=== PATIENT | female | born 1930 | race Caucasian/White ===

== ENCOUNTER → 2018-12-07 | Outpatient (CLI) | payer MEDICARE | END | disposition home or self-care (01) | LOC: LABWHC1 15:18 | PROVIDERS: ATTEND Orthopaedic Surgery | DX: M25.571 Pain in right ankle and joints of right foot (principal) | CPT/HCPCS: 36415; 82306 ==

== ENCOUNTER 2020-03-25 16:29 | Inpatient (IN) | payer MEDICARE ==
[2020-03-25] MEDS ORDERED: NITROGLYCERIN OINT 1 INCH/GM PACKET TOPICAL STA (17:01)
[2020-03-25] MEDS ORDERED: ASPIRIN 81 MG PO STA (17:01)
[2020-03-25] MEDS ORDERED: SODIUM CHLORIDE 0.9% 500 ML 500 ML IV STA (17:01)
--- NOTE | 2020-03-25 17:03 | ED ---
General Adult HPI - General Chief complaint: Chest Pain Stated complaint: Chest Pain Time Seen by Provider: 03/25/20 16:30 Source: patient, RN notes reviewed, old records reviewed Mode of arrival: wheelchair Limitations: no limitations - History of Present Illness Initial comments: This is an 89-year-old female presents emergency department with past medical history significant for high blood pressure high cholesterol and diabetes. Patient comes in today stating she's had anterior chest pain and associated pain in her teeth. Patient states this is been ongoing for 3 months. Patient states the symptoms are coming on more often and today she did take 2 nitroglycerin to remove the pain. Patient denies any pain currently. Patient denies shortness of breath or difficulty breathing. Patient denies any diaphoretic episode. Patient denies abdominal pain patient denies nausea vomiting diarrhea. Patient denies headache patient denies numbness weakness. Patient denies lightheadedness dizziness or near syncopal episode. Patient denies any recent fever chills or cough. Patient denies any swelling to legs or calf tenderness - Related Data Allergies Allergy/AdvReac Type Severity Reaction Status Date / Time No Known Allergies Allergy Verified 03/25/20 17:00 Review of Systems ROS Statement: Those systems with pertinent positive or pertinent negative responses have been documented in the HPI. ROS Other: All systems not noted in ROS Statement are negative. General Exam - General Exam Comments Initial Comments: GENERAL: Patient is well-developed and well-nourished. Patient is nontoxic and well- hydrated and is in no acute distress. ENT: Neck is soft and supple. No significant lymphadenopathy is noted. Oropharynx is clear. Moist mucous membranes. Neck has full range of motion without eliciting any pain. EYES: The sclera were anicteric and conjunctiva were pink and moist. Extraocular movements were intact and pupils were equal round and reactive to light. Eyelids were unremarkable. PULMONARY: Unlabored respirations. Good breath sounds bilaterally. No audible rales rhonchi or wheezing was noted. CARDIOVASCULAR: There is a regular rate and rhythm without any murmurs gallops or rubs. ABDOMEN: Soft and nontender with normal bowel sounds. SKIN: Skin is clear with no lesions or rashes and otherwise unremarkable. NEUROLOGIC: Patient is alert and oriented x3. Cranial nerves II through XII are grossly intact. Motor and sensory are also intact. Normal speech, volume and content. Symmetrical smile. MUSCULOSKELETAL: Normal extremities with adequate strength and full range of motion. LYMPHATICS: No significant lymphadenopathy is noted PSYCHIATRIC: Normal psychiatric evaluation. Limitations: no limitations Course Vital Signs 03/25/20 03/25/20 16:30 17:45 Temperature 97.9 F Pulse Rate 80 75 Respiratory 18 16 Rate Blood Pressure 117/60 126/60 O2 Sat by Pulse 96 95 Oximetry Medical Decision Making - Medical Decision Making EKG shows normal sinus rhythm at 79 bpm VT interval 192 QRS is 110 QT interval is 438 QTC 502. Patient's EKG shows some ST segment depression in precordial leads V3 through V6. Chest x-ray shows no acute abnormality. Patient's troponin came back mildly elevated and with the subtle EKG changes a store the patient on heparin for unstable angina. I spoke with Dr. Valencia he agreed to admit the patient admitted the patient I wrote admitting orders I continued as per heparin and Nitropaste on the floor. I consult to cardiology. - Lab Data Result diagrams: 03/25/20 17:01 03/25/20 17:01 Lab Results 03/25/20 03/25/20 03/25/20 Range/Units 17:01 17:01 17:01 WBC 9.1 (3.8-10.6) k/uL RBC 3.85 (3.80-5.40) m/uL Hgb 11.3 L (11.4-16.0) gm/dL Hct 35.7 (34.0-46.0) % MCV 92.8 (80.0-100.0) fL MCH 29.3 (25.0-35.0) pg MCHC 31.6 (31.0-37.0) g/dL RDW 14.1 (11.5-15.5) % Plt Count 271 (150-450) k/uL MPV 8.4 Neutrophils % 69 % Lymphocytes % 23 % Monocytes % 4 % Eosinophils % 2 % Basophils % 0 % Neutrophils # 6.3 (1.3-7.7) k/uL Lymphocytes # 2.1 (1.0-4.8) k/uL Monocytes # 0.4 (0-1.0) k/uL Eosinophils # 0.2 (0-0.7) k/uL Basophils # 0.0 (0-0.2) k/uL PT 10.1 (9.0-12.0) sec INR 1.0 (<1.2) APTT 25.8 (22.0-30.0) sec Sodium 140 (137-145) mmol/L Potassium 4.2 (3.5-5.1) mmol/L Chloride 108 H (98-107) mmol/L Carbon Dioxide 20 L (22-30) mmol/L Anion Gap 12 mmol/L BUN 42 H (7-17) mg/dL Creatinine 2.11 H (0.52-1.04) mg/dL Est GFR (CKD-EPI)AfAm 24 (>60 ml/min/1.73 sqM) Est GFR (CKD-EPI)NonAf 20 (>60 ml/min/1.73 sqM) Glucose 163 H (74-99) mg/dL Calcium 9.8 (8.4-10.2) mg/dL Magnesium 1.4 L (1.6-2.3) mg/dL Total Bilirubin 0.9 (0.2-1.3) mg/dL AST 18 (14-36) U/L ALT 11 (4-34) U/L Alkaline Phosphatase 86 (38-126) U/L Troponin I (0.000-0.034) ng/mL Total Protein 6.8 (6.3-8.2) g/dL Albumin 3.9 (3.5-5.0) g/dL 03/25/20 Range/Units 17:01 WBC (3.8-10.6) k/uL RBC (3.80-5.40) m/uL Hgb (11.4-16.0) gm/dL Hct (34.0-46.0) % MCV (80.0-100.0) fL MCH (25.0-35.0) pg MCHC (31.0-37.0) g/dL RDW (11.5-15.5) % Plt Count (150-450) k/uL MPV Neutrophils % % Lymphocytes % % Monocytes % % Eosinophils % % Basophils % % Neutrophils # (1.3-7.7) k/uL Lymphocytes # (1.0-4.8) k/uL Monocytes # (0-1.0) k/uL Eosinophils # (0-0.7) k/uL Basophils # (0-0.2) k/uL PT (9.0-12.0) sec INR (<1.2) APTT (22.0-30.0) sec Sodium (137-145) mmol/L Potassium (3.5-5.1) mmol/L Chloride (98-107) mmol/L Carbon Dioxide (22-30) mmol/L Anion Gap mmol/L BUN (7-17) mg/dL Creatinine (0.52-1.04) mg/dL Est GFR (CKD-EPI)AfAm (>60 ml/min/1.73 sqM) Est GFR (CKD-EPI)NonAf (>60 ml/min/1.73 sqM) Glucose (74-99) mg/dL Calcium (8.4-10.2) mg/dL Magnesium (1.6-2.3) mg/dL Total Bilirubin (0.2-1.3) mg/dL AST (14-36) U/L ALT (4-34) U/L Alkaline Phosphatase (38-126) U/L Troponin I 0.059 H* (0.000-0.034) ng/mL Total Protein (6.3-8.2) g/dL Albumin (3.5-5.0) g/dL Critical Care Time Critical Care Time: Yes Total Critical Care Time: 35 Disposition Clinical Impression: Unstable angina pectoris Disposition: ADMITTED IP TO THIS HOSP Referrals: Ruslan Hayes MD [Primary Care Provider] - 1-2 days Time of Disposition: 18:24
[2020-03-25 17:15] LABS: Basophils % (A) 0 %; Eosinophils # (A) 0.2 k/uL (0-0.7); Eosinophils % (A) 2 %; HCT 35.7 % (34.0-46.0); HGB 11.3 gm/dL (11.4-16.0); Lymphocytes # (A) 2.1 k/uL (1.0-4.8); Lymphocytes % (A) 23 %; MCH 29.3 pg (25.0-35.0); MCHC 31.6 g/dL (31.0-37.0); MCV 92.8 fL (80.0-100.0); Mean Platelet Volume 8.4; Monocytes # (A) 0.4 k/uL (0-1.0); Monocytes % (A) 4 %; Neutrophils # (A) 6.3 k/uL (1.3-7.7); Neutrophils % (A) 69 %; Platelet Count 271 k/uL (150-450); RBC 3.85 m/uL (3.80-5.40); RDW 14.1 % (11.5-15.5); WBC 9.1 k/uL (3.8-10.6)
[2020-03-25 17:24] LABS: Partial Thromboplastin Time 25.8 sec (22.0-30.0); Prothrombin Time 10.1 sec (9.0-12.0)
[2020-03-25 17:26] LABS: Albumin 3.9 g/dL (3.5-5.0); Calcium 9.8 mg/dL (8.4-10.2); Magnesium 1.4 mg/dL (1.6-2.3); Potassium 4.2 mmol/L (3.5-5.1); Total Bilirubin 0.9 mg/dL (0.2-1.3); Total Protein 6.8 g/dL (6.3-8.2)
--- NOTE | 2020-03-25 17:53 | XR ---
EXAMINATION TYPE: XR chest 2V DATE OF EXAM: 03/25/2020 COMPARISON: Prior chest x-ray 03/23/2011, CT 03/24/2011 HISTORY: Chest pain TECHNIQUE: Frontal and lateral views of the chest are obtained. FINDINGS: Abnormal densities present at the right lung base. Patient is rotated, question old right- sided rib fractures. There is blunting the right costophrenic angle. Retrocardiac density is present. There is a wedge compression deformity present near the thoracic lumbar junction, resulting kyphosis is present. Heart size is normal. Aorta is dense. There is no pneumothorax. IMPRESSION: There is a hiatal hernia with partial intrathoracic stomach. Probable basilar atelectasi s, correlate for possible pneumonia, pleural effusion. Rotated exam, additional findings above, compr ession fracture near the thoracic lumbar junction of indeterminate age.
[2020-03-25] MEDS ORDERED: HEPARIN SODIUM,PORCINE 5,000 UNIT/ML 1 ML VIAL IV ONE (18:20)
[2020-03-25] MEDS ORDERED: NITROGLYCERIN SL TABS 0.4 MG TAB SUBLINGUAL PRN ×2 (18:24→20:48)
[2020-03-25] MEDS: HEPARIN SOD,PORK IN 0.45% NACL 25,000 UNIT in 0.45% NACL 1 250ML.BAG IV SCH (18:44)
[2020-03-25] MEDS ORDERED: LORATADINE 10 MG TAB PO PRN (20:48)
--- NOTE | 2020-03-25 21:31 | P.HPIM ---
History of Present Illness H&P Date: 03/25/20 Chief Complaint: Angina, non-ST MA, CAD, hypertension, type 2 diabetes, stage IV chronic kid 89-year-old female one of Dr. Ruslan Hayes's patient with past medical history of chronic kidney disease, hypertension, hyperlipidemia, type 2 diabetes, history of gout, history of TIA in the past with a chronic anemia who was hospitalized at [facility] between 03 03 till 03/08/2001 he for non-ST MA and ended up going for [facility] which showed severe mitral regurgitation and patent bingham ovale patient also was treated for diastolic congestive heart failure with IV diuretics and adjustment of her medication long talk with nephrology about the possibility of intervention including an angiogram because of the stage IV chronic kidney disease decided not to based on the high possibility of patient might ended up on hemodialysis. Medication were adjusted patient was on more Lasix started on atorvastatin hydralazine and isosorbide mononitrate 30 mg a day she felt slightly but better. [place] patient presented to [facility] emergency department this morning with worsening midsternal chest pain radiating toward the teeth and according to her has been having pain on and off for the last 3 months become much worse she is taking 3 nitroglycerin with subsided the pain completely. Finding in the emergency department still GFR of 20 troponin was 0.05 9.063 her EKG showed slight ST depression in V3 to V6 with inverted are and 3 and aVF consistent with previous inferior infarct. Patient chest x-ray shows hiatal hernia with partial intrathoracic stomach probable basilar atele ctasis correlated with possible pneumonia along with pleural effusion. Compression fracture near the thoracic lumbar junction of indeterminate age with no other finding. Patient is known to cardiology from before with the current finding decided to admit patient to the hospital continue heparin drip consult cardiology keep patient nothing by mouth for possible going for heart cath tomorrow. Review of Systems CONSTITUTIONAL: Well-developed no acute respiratory distress. EYES: No icterus sclerae, no conjunctivitis. EARS, NOSE, MOUTH, THROAT, and FACE: No sore throat, lymphadenopathy, carotid bruits or deformity. RESPIRATORY: Positive chest pain with mild shortness of breath or CARDIOVASCULAR: Anginal chest pain worsening with exertion along with mild palpitation and PND. GASTROINTESTINAL: No Abd pain, Nausea or vomiting, no Diarrhea or constipation, No GI Bleed, no distention or masses. GENITOURINARY: Negative for Hematuria or UTI, no kidney stones. INTEGUMENT/BREAST: Negative for any muscular injury with mild osteoarthritis.. HEMATOLOGIC/LYMPHATIC: Negative for bleed or purpura. MUSCULOSKELTAL: Negative for Myalgia or arthralgia. NEURLOGICAL: No LOC, Sz or syncope, blurred vision dizziness or abnormality.. BEHAVIORAL/PSYCH: Negative. ENDOCRINE: Negative. Past Medical History Past Medical History: Coronary Artery Disease (CAD), Chest Pain / Angina, Heart Failure, CVA/TIA, Diabetes Mellitus, GERD/Reflux, Hyperlipidemia, Hypertension, Memory Impairment, Musculoskeletal Disorder, Renal Disease, Supraventricular Tachycardia (SVT), Thyroid Disorder Additional Past Medical History / Comment(s): Severe mitral regurgitation and patent bingham ovale. Generalized anxiety attacks, chronic constipation, vasomotor rhinitis, migraine with visual aura, iron deficiency anemia, B12 deficiency, chronic vertigo, lumbar degenerative disc disease, osteoporosis with pathology fracture, history of non-ST MA, cystitis with hematuria, chronic edema Past Surgical History: Cholecystectomy, Hysterectomy, Tonsillectomy Past Psychological History: Anxiety, Depression Smoking Status: Never smoker Past Alcohol Use History: None Reported Past Drug Use History: None Reported Medications and Allergies Home Medications Medication Instructions Recorded Confirmed Type ALPRAZolam [Xanax] 0.25 mg PO BID PRN 03/25/20 03/25/20 History Atenolol [Tenormin] 50 mg PO HS 03/25/20 03/25/20 History Atorvastatin [Lipitor] 40 mg PO HS 03/25/20 03/25/20 History Dipyridamole-Aspirin 200-25 mg 1 tab PO DAILY 03/25/20 03/25/20 History [Aggrenox 25MG -200MG] Furosemide [Lasix] 40 mg PO DAILY 03/25/20 03/25/20 History Insulin Glargine,Hum.rec.anlog 25 units SQ HS 03/25/20 03/25/20 History [Lantus Solostar] Isosorbide Mononitrate ER [Imdur] 60 mg PO DAILY 03/25/20 03/25/20 History Lansoprazole [Prevacid] 15 mg PO DAILY 03/25/20 03/25/20 History Loratadine [Claritin] 10 mg PO DAILY PRN 03/25/20 03/25/20 History Nitroglycerin Sl Tabs [Nitrostat] 0.4 mg SUBLINGUAL DIRECTED PRN 03/25/20 03/25/20 History amLODIPine [Norvasc] 10 mg PO HS 03/25/20 03/25/20 History hydrALAZINE HCL [Apresoline] 50 mg PO BID 03/25/20 03/25/20 History Allergies Allergy/AdvReac Type Severity Reaction Status Date / Time No Known Allergies Allergy Verified 03/25/20 19:23 Physical Exam Vitals: Vital Signs Temp Pulse Resp BP Pulse Ox 03/25/20 20:21 97.9 F 80 14 114/61 94 L 03/25/20 18:50 75 16 124/63 96 03/25/20 17:45 75 16 126/60 95 03/25/20 16:30 97.9 F 80 18 117/60 96 Intake and Output 03/25/20 03/25/20 03/25/20 06:59 14:59 22:59 Other: Weight 86.183 kg General Appearance: Alert, cooperative, no distress, appears stated age. Neck HEENT: Supple, no lymphadenopathy, no thyroid enlargement, no carotid bruits. Lungs: Clear to auscultation without crackles or wheezes no rhonchi, no deformity. Chest Wall: Decrease expansion with deep inspiration no tenderness and no deformity was found on exam, no costochondral pain or discomfort. Heart: Regular rate and rhythm, S1, S2 , positive systolic murmur Back: Symmetric, no curvature, ROM normal, no CVA tenderness. Abdomen: Soft, non-tender, bowel sounds active all four quadrants, no masses, no organomegaly. Extremities: Extremities normal, atraumatic, no cyanosis or edema. Pulses: 2+ and symmetric. Skin: Skin color, texture, tugor normal, no rashes or lesions. Neurologic: Alert oriented x3 cranial nerves II through XII intact, no motor deficit, no abnormal balance or gait. Results CBC & Chem 7: 03/25/20 17:01 03/25/20 17:01 Labs: Abnormal Lab Results - Last 24 Hours (Table) 03/25/20 03/25/20 03/25/20 Range/Units 17:01 17:01 17:01 Hgb 11.3 L (11.4-16.0) gm/dL Chloride 108 H (98-107) mmol/L Carbon Dioxide 20 L (22-30) mmol/L BUN 42 H (7-17) mg/dL Creatinine 2.11 H (0.52-1.04) mg/dL Glucose 163 H (74-99) mg/dL Magnesium 1.4 L (1.6-2.3) mg/dL Troponin I 0.059 H* (0.000-0.034) ng/mL 03/25/20 Range/Units 19:11 Hgb (11.4-16.0) gm/dL Chloride (98-107) mmol/L Carbon Dioxide (22-30) mmol/L BUN (7-17) mg/dL Creatinine (0.52-1.04) mg/dL Glucose (74-99) mg/dL Magnesium (1.6-2.3) mg/dL Troponin I 0.063 H* (0.000-0.034) ng/mL Assessment and Plan Assessment: 1 unstable angina: With recurrent chest pain for the last few month patient tramaine tam not doing well will admit patient to the hospital consult cardiology possible need for heart cath the meanwhile continue heparin drip. 2 non-ST MA: Patient was seen at [facility] and no intervention was done based on the severity of her kidney function. 3 stage IV chronic kidney disease: Still with GFR of 20 continue hydration and reexamined the factor being testing by tomorrow. 4 severe large hiatal hernia: Patient can benefit from stain on pantoprazole 40 mg daily for now. 5 hyperlipidemia: Was started on atorvastatin 40 mg daily. 6 type 2 diabetes on insulin: Continue patient on Levemir 25 units daily along with Accu-Chek with sliding scales coverage. 7 hypertension: Blood pressure is better controlled so far on Tenormin 50 mg a day amlodipine 10 mg daily hydralazine 50 mg twice a day continue medication and titrate hydralazine if needed. 8 previous history of TIA still on Aggrenox continue on anticoagulation. GI prophylaxis: On pantoprazole. DVT prophylaxis: Continue patient on heparin drip. CODE STATUS: Full code. Admit patient to the inpatient service for more than 2 night stay.
[2020-03-25] MEDS: INSULIN DETEMIR (LEVEMIR) 100 UNIT/ML SYR SQ SCH (22:17)
[2020-03-25] MEDS: hydrALAZINE HCL 50 MG TAB PO SCH (22:18)
[2020-03-25] MEDS: ATORVASTATIN 40 MG TAB PO SCH (22:18)
[2020-03-25] MEDS: amLODIPine 10 MG TAB PO SCH (22:18)
[2020-03-25] MEDS: atenoloL 50 MG TAB PO SCH (22:18)
[2020-03-25 22:20] LABS: Glucose,Whole Blood 129 mg/dL (75-99)
[2020-03-25] MEDS: ALPRAZolam 0.25 MG TAB PO PRN (22:32)
[2020-03-26] MEDS: NITROGLYCERIN OINT 1 INCH/GM PACKET TOPICAL SCH ×4 (00:49→18:06)
[2020-03-26 03:27] LABS: Basophils % (A) 0 %; Eosinophils % (A) 3 %; HCT 29.3 % (34.0-46.0); Lymphocytes % (A) 30 %; MCH 30.9 pg (25.0-35.0); MCHC 33.3 g/dL (31.0-37.0); MCV 92.8 fL (80.0-100.0); Mean Platelet Volume 8.2; Monocytes % (A) 5 %; Neutrophils % (A) 60 %; Platelet Count 248 k/uL (150-450); RBC 3.16 m/uL (3.80-5.40); RDW 13.8 % (11.5-15.5); WBC 7.9 k/uL (3.8-10.6)
[2020-03-26 03:28] LABS: Eosinophils # (A) 0.2 k/uL (0-0.7); Lymphocytes # (A) 2.4 k/uL (1.0-4.8); Monocytes # (A) 0.4 k/uL (0-1.0); Neutrophils # (A) 4.7 k/uL (1.3-7.7)
[2020-03-26 03:30] LABS: HGB 9.8 gm/dL (11.4-16.0)
[2020-03-26 04:29] LABS: Calcium 9.1 mg/dL (8.4-10.2); Potassium 3.8 mmol/L (3.5-5.1); Total Bilirubin 0.7 mg/dL (0.2-1.3); Total Protein 5.7 g/dL (6.3-8.2)
[2020-03-26] MEDS: PANTOPRAZOLE 40 MG TABLET PO SCH (05:34)
--- NOTE | 2020-03-26 10:32 | P.NPCON ---
History of Present Illness - Reason for Consult acute renal failure - History of Present Illness Reason for consultation: Acute kidney injury on chronic kidney disease History of present illness: Patient is a 89-year-old female seen in renal consultation for acute kidney injury on chronic kidney disease. Creatinine was 2.11 on admission and is 1.96 today. Unknown baseline renal function. She does not follow with a welfare officer outpatient. Patient states she's been having intermittent chest discomfort for almost 2 months. However the last few days she's been having progressively worsening shortness of breath. She denies any prior history of coronary artery disease. She does have history of diabetes. Patient describes the pain as pressure-like in the midsternum. Denies any diaphoresis or pain in her arms. Oral intake has been fair. No vomiting or diarrhea. Good urine output. No hematuria or dysuria. Denies family history of renal disease. Blood pressure was on the lower side this morning. Currently maintained on heparin drip. She has been seen by cardiology and cardiac catheterization is being considered this admission. Vital signs are stable. General: The patient appeared well nourished and normally developed. HEENT: Head exam is unremarkable. Neck is without jugular venous distension. LUNGS: Breath sounds decreased. HEART: Rate and Rhythm are regular. ABDOMEN: Soft, nontender. EXTREMITITES: Trace edema. Past Medical History Past Medical History: Coronary Artery Disease (CAD), Chest Pain / Angina, Heart Failure, CVA/TIA, Diabetes Mellitus, GERD/Reflux, Hyperlipidemia, Hypertension, Memory Impairment, Musculoskeletal Disorder, Renal Disease, Supraventricular Tachycardia (SVT), Thyroid Disorder Additional Past Medical History / Comment(s): Severe mitral regurgitation and patent bingham ovale. Generalized anxiety attacks, chronic constipation, vasomotor rhinitis, migraine with visual aura, iron deficiency anemia, B12 deficiency, chronic vertigo, lumbar degenerative disc disease, osteoporosis with pathology fracture, history of non-ST [place], cystitis with hematuria, chronic edema History of Any Multi-Drug Resistant Organisms: None Reported Past Surgical History: Cholecystectomy, Hysterectomy, Tonsillectomy Past Psychological History: Anxiety, Depression Smoking Status: Never smoker Past Alcohol Use History: None Reported Past Drug Use History: None Reported Medications and Allergies Home Medications Medication Instructions Recorded Confirmed Type ALPRAZolam [Xanax] 0.25 mg PO BID PRN 03/25/20 03/25/20 History Atenolol [Tenormin] 50 mg PO HS 03/25/20 03/25/20 History Atorvastatin [Lipitor] 40 mg PO HS 03/25/20 03/25/20 History Dipyridamole-Aspirin 200-25 mg 1 tab PO DAILY 03/25/20 03/25/20 History [Aggrenox 25MG -200MG] Furosemide [Lasix] 40 mg PO DAILY 03/25/20 03/25/20 History Insulin Glargine,Hum.rec.anlog 25 units SQ HS 03/25/20 03/25/20 History [Lantus Solostar] Isosorbide Mononitrate ER [Imdur] 60 mg PO DAILY 03/25/20 03/25/20 History Lansoprazole [Prevacid] 15 mg PO DAILY 03/25/20 03/25/20 History Loratadine [Claritin] 10 mg PO DAILY PRN 03/25/20 03/25/20 History Nitroglycerin Sl Tabs [Nitrostat] 0.4 mg SUBLINGUAL DIRECTED PRN 03/25/20 03/25/20 History amLODIPine [Norvasc] 10 mg PO HS 03/25/20 03/25/20 History hydrALAZINE HCL [Apresoline] 50 mg PO BID 03/25/20 03/25/20 History Allergies Allergy/AdvReac Type Severity Reaction Status Date / Time No Known Allergies Allergy Verified 03/25/20 19:23 Physical Exam Vitals: Vital Signs Temp Pulse Pulse Resp BP BP Pulse Ox 03/26/20 04:43 98.1 F 69 16 87/54 94 L 03/26/20 02:00 18 03/26/20 00:15 98.1 F 75 18 104/54 94 L 03/25/20 22:19 98.2 F 75 16 122/62 97 03/25/20 21:15 78 16 105/60 94 L 03/25/20 20:55 112/60 92 L 03/25/20 20:21 97.9 F 80 14 114/61 94 L 03/25/20 18:50 75 16 124/63 96 03/25/20 17:45 75 16 126/60 95 03/25/20 16:30 97.9 F 80 18 117/60 96 Intake and Output 03/25/20 03/26/20 03/26/20 22:59 06:59 14:59 Intake Total 540 Balance 540 Intake: Oral 540 Other: Voiding Method Toilet # Voids 2 Weight 86.183 kg 86.183 kg Results - Lab Results Most recent lab results Calcium 9.1 mg/dL (8.4-10.2) 03/26/20 02:34 Magnesium 1.4 mg/dL (1.6-2.3) L 03/25/20 17:01 03/26/20 02:29 03/26/20 02:34 Assessment and Plan Plan: Assessment: 1. Acute kidney injury secondary to ATN secondary to hypotension versus chronic kidney disease. Unknown baseline renal function. Renal function fairly stable this admission. Creatinine 1.96 this morning. 2. Chronic kidney disease. Need to establish baseline renal function. 3. Non-ST elevated myocardial infarction. Currently on heparin drip. 4. Insulin-dependent diabetes mellitus. 5. Hypertension with chronic kidney disease. Blood pressure in the lower side. 6. Metabolic acidosis secondary to chronic kidney disease. 7. Anemia of chronic kidney disease. Rule out iron deficiency. Plan: Hold antihypertensives for systolic blood pressure less than 110. Maintain Lasix 40 mg orally daily for now. I discussed with the patient the risk of worsening renal failure, potentially requiring renal replacement therapy, post IV contrast exposure. She understands. I will hydrate her with isotonic bicarbonate drip to be given at a rate of 3 mL/kg per hour one hour prior to the catheterization and to be continued at a rate of 1 mL/kilogram per hour 6 hours post cardiac catheterization. Continue to monitor renal function and urine output closely. Check urinalysis. Check renal ultrasound. Add oral sodium bicarbonate. Check iron studies. Thank you for the consultation. I will continue to follow the patient with you during her hospital stay.
[2020-03-26] MEDS: SODIUM BICARBONATE TAB 650 MG TAB PO SCH ×2 (11:00→20:56)
[2020-03-26] MEDS: DIPYRIDAMOLE-ASPIRIN 200-25 MG 1 EACH CPMP.12HR PO SCH (11:00)
[2020-03-26] MEDS ORDERED: DEXTROSE 5% IN WATER 1,000 ML with SODIUM BICARB (1 MEQ/ML) 150 ML IV SCH (11:00)
[2020-03-26] MEDS: FUROSEMIDE 40 MG TAB PO SCH (11:01)
[2020-03-26] MEDS: hydrALAZINE HCL 50 MG TAB PO SCH ×2 (11:01→20:57)
[2020-03-26] MEDS: ASPIRIN 325 MG TAB PO SCH (11:01)
--- NOTE | 2020-03-26 11:12 | US ---
EXAMINATION TYPE: US kidneys/renal and bladder DATE OF EXAM: 03/26/2020 COMPARISON: CT 03/24/2011 CLINICAL HISTORY: [email or web address]. EXAM MEASUREMENTS: Right Kidney: 10.1 x 5.1 x 4.9 cm Left Kidney: 9.3 x 4.0 x 4.7 cm Right Kidney: No hydronephrosis. Loss of corticomedullary differentiation. Hypoechoic nodule visualiz ed measuring 0.8 cm Left Kidney: No hydronephrosis. Loss of corticomedullary differentiation. Hypoechoic nodule visualize d measuring 1.3 x 1.5 x 0.9 cm Bladder: Not fully distended, WNL as visualized Bilateral Jets seen: No IMPRESSION: 1. Cortical thinning and increased echogenicity correlate for chronic medical renal disease. 2. Hypoechoic nodules in both kidneys are indeterminate but most likely on the basis of simple cysts.
[2020-03-26] MEDS: ALPRAZolam 0.25 MG TAB PO PRN ×2 (12:59→20:56)
--- NOTE | 2020-03-26 14:02 | P.PN ---
Subjective Progress Note Date: 03/26/20 HISTORY OF PRESENT ILLNESS 89-year-old female one of Dr. Ruslan Hayes's patient with past medical history of chronic kidney disease, hypertension, hyperlipidemia, type 2 diabetes , history of gout, history of TIA in the past with a chronic anemia who was hospitalized at [facility] between 03/03 till 03/08/2001 he for non-ST [place] and ended up going for NICOLAS which showed severe mitral regurgitation and patent bingham ovale patient also was treated for diastolic congestive heart failure with IV diuretics and adjustment of her medication long talk with nephrology about the possibility of intervention including an angiogram because of the stage IV chronic kidney disease decided not to based on the high possibility of patient might ended up on hemodialysis. Medication were adjusted patient was on more Lasix started on atorvastatin hydralazine and isosorbide mononitrate 30 mg a day she felt slightly but better. [place] patient presented to [facility] emergency department this morning with worsening midsternal chest pain radiating toward the teeth and according to her has been having pain on and off for the last 3 months become much worse she is taking 3 nitroglycerin with subsided the pain completely. Finding in the emergency department still GFR of 20 troponin was 0.05 9.063 her EKG showed slight ST depression in V3 to V6 with inverted are and 3 and aVF consistent with previous inferior infarct. Patient chest x-ray shows hiatal hernia with partial intrathoracic stomach probable basilar atelectasis correlated with possible pneumonia along with pleural effusion. C ompression fracture near the thoracic lumbar junction of indeterminate age with no other finding. Patient is known to cardiology from before with the current finding decided to admit patient to the hospital continue heparin drip consult cardiology keep patient nothing by mouth for possible going for heart cath tomorrow. 03/26: Patient is seen today in the emergency center and is still waiting for room and the cardiac floor. She has been seen by cardiology with plan for heart catheterization tomorrow. Consult added for nephrology and Dr. Aggarwal has recommended maintaining Lasix 40 mg daily, start a bicarb drip prior to her catheterization. Oral sodium bicarbonate added and iron studies ordered. Renal ultrasound revealed cortical thinning and increased echogenicity correlate for chronic medical renal disease. Hypoechoic nodules in both kidneys are indeterminate but most likely on the basis of simple cyst.Patient has been afebrile, heart rate 69, blood pressure 87/54, pulse ox 94% on 2 L nasal cannula. Repeat blood work reveals hemoglobin of 9.8. CO2 19, BUN 42 and creatinine 1.96. Troponins are 0.059, 0.063, 0.060. REVIEW OF SYSTEMS CONSTITUTIONAL: Well-developed no acute respiratory distress. Denies fevers EYES: No icterus sclerae, no conjunctivitis. EARS, NOSE, MOUTH, THROAT, and FACE: No sore throat, lymphadenopathy, carotid bruits or deformity. RESPIRATORY: Positive chest pain with mild shortness of breath CARDIOVASCULAR: Anginal chest pain worsening with exertion along with mild palpitation and PND. GASTROINTESTINAL: No Abd pain, Nausea or vomiting, no Diarrhea or constipation, No GI Bleed, no distention or masses. GENITOURINARY: Negative for Hematuria or UTI, no kidney stones. INTEGUMENT/BREAST: Negative for any muscular injury with mild osteoarthritis.. HEMATOLOGIC/LYMPHATIC: Negative for bleed or purpura. MUSCULOSKELTAL: Negative for Myalgia or arthralgia. NEURLOGICAL: No LOC, Sz or syncope, blurred vision dizziness or abnormality.. BEHAVIORAL/PSYCH: Negative. ENDOCRINE: Negative. PHYSICAL EXAMINATION General Appearance: Alert, cooperative, no distress, appears stated age. Neck HEENT: Supple, no lymphadenopathy, no thyroid enlargement, no carotid bruits. Lungs: Clear to auscultation without crackles or wheezes no rhonchi, no deformity. Chest Wall: Decrease expansion with deep inspiration no tenderness and no deformity was found on exam, no costochondral pain or discomfort. Heart: Regular rate and rhythm, S1, S2 , positive systolic murmur Back: Symmetric, no curvature, ROM normal, no CVA tenderness. Abdomen: Soft, non-tender, bowel sounds active all four quadrants, no masses, no organomegaly. Extremities: Extremities normal, atraumatic, no cyanosis or edema. Pulses: 2+ and symmetric. Skin: Skin color, texture, tugor normal, no rashes or lesions. Neurologic: Alert oriented x3 cranial nerves II through XII intact, no motor deficit, no abnormal balance or gait. ASSESSMENT AND PLAN 1 unstable angina: With recurrent chest pain for the last few month. Patient is on heparin drip, cardiology consult appreciated. Heart catheterization scheduled for tomorrow. 2 non-ST [place]: Patient was seen at [facility] and no intervention was done based on the severity of her kidney function. 3 stage IV chronic kidney disease: Still with GFR of 20 continue hydration and reexamined the factor being testing by tomorrow.Consult with nephrology appreciated. Patient started on oral bicarb, bicarb drip. Renal ultrasound as above 4 severe large hiatal hernia: Patient can benefit from stain on pantoprazole 40 mg daily for now. 5 hyperlipidemia: Was started on atorvastatin 40 mg daily. 6 type 2 diabetes on insulin: Continue patient on Levemir 25 units daily along with Accu-Chek with sliding scales coverage. 7 hypertension: Blood pressure is better controlled so far on Tenormin 50 mg a day amlodipine 10 mg daily hydralazine 50 mg twice a day continue medication and titrate hydralazine if needed. 8 previous history of TIA still on Aggrenox continue on anticoagulation. 9 patent foramen ovale and severe mitral regurgitation 10 GI prophylaxis: On pantoprazole. DVT prophylaxis: Continue patient on heparin drip. CODE STATUS: Full code. DISCHARGE PLAN [ ]. Impression and plan of care have been directed as dictated by the signing physician. [place] Mayo nurse practitioner acting as scribe for signing physician. Objective - Vital Signs Vital signs: Vital Signs Temp 98.1 F 03/26/20 04:43 Pulse 69 03/26/20 04:43 Resp 16 03/26/20 04:43 BP 87/54 03/26/20 04:43 Pulse Ox 94 L 03/26/20 04:43 Intake & Output 03/25/20 03/26/20 03/26/20 18:59 06:59 18:59 Intake Total 540 Balance 540 Weight 86.183 kg 86.183 kg Intake: Oral 540 Other: Voiding Method Toilet # Voids 2 - Labs CBC & Chem 7: 03/26/20 02:29 03/26/20 02:34 Labs: Abnormal Lab Results - Last 24 Hours (Table) 03/25/20 03/25/20 03/25/20 Range/Units 17:01 17:01 17:01 RBC (3.80-5.40) m/uL Hgb 11.3 L (11.4-16.0) gm/dL Hct (34.0-46.0) % APTT (22.0-30.0) sec Chloride 108 H (98-107) mmol/L Carbon Dioxide 20 L (22-30) mmol/L BUN 42 H (7-17) mg/dL Creatinine 2.11 H (0.52-1.04) mg/dL Glucose 163 H (74-99) mg/dL POC Glucose (mg/dL) (75-99) mg/dL Magnesium 1.4 L (1.6-2.3) mg/dL Troponin I 0.059 H* (0.000-0.034) ng/mL Total Protein (6.3-8.2) g/dL Albumin (3.5-5.0) g/dL HDL Cholesterol (40-60) mg/dL 03/25/20 03/25/20 03/25/20 Range/Units 19:11 21:10 22:17 RBC (3.80-5.40) m/uL Hgb (11.4-16.0) gm/dL Hct (34.0-46.0) % APTT (22.0-30.0) sec Chloride (98-107) mmol/L Carbon Dioxide (22-30) mmol/L BUN (7-17) mg/dL Creatinine (0.52-1.04) mg/dL Glucose (74-99) mg/dL POC Glucose (mg/dL) 129 H (75-99) mg/dL Magnesium (1.6-2.3) mg/dL Troponin I 0.063 H* 0.060 H* (0.000-0.034) ng/mL Total Protein (6.3-8.2) g/dL Albumin (3.5-5.0) g/dL HDL Cholesterol (40-60) mg/dL 03/26/20 03/26/20 03/26/20 Range/Units 02:29 02:29 02:34 RBC 3.16 L (3.80-5.40) m/uL Hgb 9.8 L D (11.4-16.0) gm/dL Hct 29.3 L (34.0-46.0) % APTT 81.6 H (22.0-30.0) sec Chloride 112 H (98-107) mmol/L Carbon Dioxide 19 L (22-30) mmol/L BUN 42 H (7-17) mg/dL Creatinine 1.96 H (0.52-1.04) mg/dL Glucose 115 H (74-99) mg/dL POC Glucose (mg/dL) (75-99) mg/dL Magnesium (1.6-2.3) mg/dL Troponin I (0.000-0.034) ng/mL Total Protein 5.7 L (6.3-8.2) g/dL Albumin 3.0 L (3.5-5.0) g/dL HDL Cholesterol 39 L (40-60) mg/dL
--- NOTE | 2020-03-26 14:18 | P.CRDCN ---
History of Present Illness History of present illness: HISTORY OF PRESENTING ILLNESS This is a pleasant 89-year-old female past medical history significant for diabetes mellitus, hypertension, dyslipidemia and chronic kidney disease. She does not follow in the office with a weaver dobby loom regularly. However, the son states she saw Dr. Manzanares in the office after that admission and was giving her options regarding medical therapy vs catheterization. They had a follow-up scheduled for later this week for a decision. The son states that her breathing has been progressively getting worse and believes she would benefit from further testing. We have been asked to see in consultation for chest pain. She presented to the hospital with one to 2 month history of exertional shortness of breath and chest discomfort. She was seen in evaluation at [facility] earlier in February where maximum medical therapy was rec ommended secondary to kidney disease. She also underwent a NICOLAS at that time revealing severe mitral regurgitation, mitral regurgitation is eccentrically directed with flow reversal noted in the pulmonary veins, mild tricuspid regurgitation, PFO and normal LV systolic function with ejection fraction 55- 60%. DIAGNOSTICS EKG reveals sinus mechanism, ST depression inferior laterally, no old EKG for c omparison. Chest xray hiatal hernia and basilar atelectasis. Laboratory reviewed, WBC 7.9, hemoglobin 9.8, platelets 248, sodium 140, potassium 3.8, creatinine 1.96, magnesium 1.4, LDL 40, HDL 39, troponin 0.059, 0.063 and 0.060. Current cardiac medications include amlodipine 10 mg daily, atenolol 50 mg daily, atorvastatin 40 mg daily, Lasix 40 mg daily, Imdur 60 mg daily and hydralazine 50 mg twice a day. REVIEW OF SYSTEMS At the time of my exam: CONSTITUTIONAL: Denies fever or chills. CARDIOVASCULAR: Complains of exertional shortness of breath. Denies chest pain, orthopnea, PND or palpitations. RESPIRATORY: Denies cough. GASTROINTESTINAL: Denies abdominal pain, diarrhea, constipation, nausea or vomiting. MUSCULOSKELETAL: Denies myalgias. NEUROLOGIC: Denies numbness, tingling or weakness. ENDOCRINE: Denies fatigue, weight change, polydipsia or polyurina. GENITOURINARY: Denies burning, hematuria or urgency with micturation. HEMATOLOGIC: Denies history of anemia or bleeding. PHYSICAL EXAMINATION Blood pressure 87/54 heart rate 69 afebrile and maintaining oxygen saturation on nasal cannula. CONSTITUTIONAL: No apparent distress. HEENT: Head is normocephalic. Pupils are equal, round. Sclerae anicteric. Mucous membranes of the mouth are moist. No JVD. No carotid bruit. CHEST EXAMINATION: Lungs are clear to auscultation. No chest wall tenderness is noted on palpation or with deep breathing. HEART EXAMINATION: Regular rate and rhythm. S1, S2 heard. Systolic ejection murmur at the apex, no gallops or rub. ABDOMEN: Soft, nontender. Positive bowel sounds. EXTREMITIES: 2+ peripheral pulses, no lower extremity edema and no calf tenderness. NEUROLOGIC EXAMINATION: Patient is awake, alert and oriented x3. ASSESSMENT Unstable angina Elevated troponin, flat and not consistent with ACS Acute on chronic kidney disease Diabetes mellitus Hypertension Dyslipidemia PLAN Appreciate nephrology opinion prior to undergoing cardiac catheterization. I have discussed the risks, benefits and alternative therapies for the above- mentioned procedure and for both sedation/analgesia as well as necessary blood product administration, if indicated, as they pertain to this patient. The patient has indicated understanding and acceptance of the risks and procedures discussed. Questions have been answered properly and she is agreeable to move forward with the above stated procedure. Her son is also been updated as to the plan of care per the nurse. We will proceed with cardiac catheterization tomorrow morning. Further recommendations to follow based upon clinical course. Thank you kindly for this consultation. Nurse Practitioner note has been reviewed, I agree with a documented findings and plan of care. Patient was seen and examined. Past Medical History Past Medical History: Coronary Artery Disease (CAD), Chest Pain / Angina, Heart Failure, CVA/TIA, Diabetes Mellitus, GERD/Reflux, Hyperlipidemia, Hypertension, Memory Impairment, Musculoskeletal Disorder, Renal Disease, Supraventricular Tachycardia (SVT), Thyroid Disorder Additional Past Medical History / Comment(s): Severe mitral regurgitation and patent bingham ovale. Generalized anxiety attacks, chronic constipation, vasomotor rhinitis, migraine with visual aura, iron deficiency anemia, B12 deficiency, chronic vertigo, lumbar degenerative disc disease, osteoporosis with pathology fracture, history of non-ST [place], cystitis with hematuria, chronic edema History of Any Multi-Drug Resistant Organisms: None Reported Past Surgical History: Cholecystectomy, Hysterectomy, Tonsillectomy Past Psychological History: Anxiety, Depression Smoking Status: Never smoker Past Alcohol Use History: None Reported Past Drug Use History: None Reported Medications and Allergies Home Medications Medication Instructions Recorded Confirmed Type ALPRAZolam [Xanax] 0.25 mg PO BID PRN 03/25/20 03/25/20 History Atenolol [Tenormin] 50 mg PO HS 03/25/20 03/25/20 History Atorvastatin [Lipitor] 40 mg PO HS 03/25/20 03/25/20 History Dipyridamole-Aspirin 200-25 mg 1 tab PO DAILY 03/25/20 03/25/20 History [Aggrenox 25MG -200MG] Furosemide [Lasix] 40 mg PO DAILY 03/25/20 03/25/20 History Insulin Glargine,Hum.rec.anlog 25 units SQ HS 03/25/20 03/25/20 History [Lantus Solostar] Isosorbide Mononitrate ER [Imdur] 60 mg PO DAILY 03/25/20 03/25/20 History Lansoprazole [Prevacid] 15 mg PO DAILY 03/25/20 03/25/20 History Loratadine [Claritin] 10 mg PO DAILY PRN 03/25/20 03/25/20 History Nitroglycerin Sl Tabs [Nitrostat] 0.4 mg SUBLINGUAL DIRECTED PRN 03/25/20 03/25/20 History amLODIPine [Norvasc] 10 mg PO HS 03/25/20 03/25/20 History hydrALAZINE HCL [Apresoline] 50 mg PO BID 03/25/20 03/25/20 History Allergies Allergy/AdvReac Type Severity Reaction Status Date / Time No Known Allergies Allergy Verified 03/25/20 19:23 Physical Exam Vitals: Vital Signs Temp Pulse Pulse Resp BP BP Pulse Ox 03/26/20 04:43 98.1 F 69 16 87/54 94 L 03/26/20 02:00 18 03/26/20 00:15 98.1 F 75 18 104/54 94 L 03/25/20 22:19 98.2 F 75 16 122/62 97 03/25/20 21:15 78 16 105/60 94 L 03/25/20 20:55 112/60 92 L 03/25/20 20:21 97.9 F 80 14 114/61 94 L 03/25/20 18:50 75 16 124/63 96 03/25/20 17:45 75 16 126/60 95 03/25/20 16:30 97.9 F 80 18 117/60 96 Intake and Output 03/25/20 03/26/20 03/26/20 22:59 06:59 14:59 Intake Total 540 Balance 540 Intake: Oral 540 Other: Voiding Method Toilet # Voids 2 Weight 86.183 kg 86.183 kg Results 03/26/20 02:29 03/26/20 02:34 Cardiac Enzymes 03/25/20 03/25/20 03/25/20 Range/Units 17:01 17:01 19:11 AST 18 (14-36) U/L Troponin I 0.059 H* 0.063 H* (0.000-0.034) ng/mL 03/25/20 03/26/20 Range/Units 21:10 02:34 AST 19 (14-36) U/L Troponin I 0.060 H* (0.000-0.034) ng/mL Coagulation 03/25/20 03/26/20 Range/Units 17:01 02:29 PT 10.1 (9.0-12.0) sec APTT 25.8 81.6 H (22.0-30.0) sec Lipids 03/26/20 Range/Units 02:34 Triglycerides 88 (<150) mg/dL Cholesterol 97 (<200) mg/dL HDL Cholesterol 39 L (40-60) mg/dL CBC 03/25/20 03/26/20 Range/Units 17:01 02:29 WBC 9.1 7.9 (3.8-10.6) k/uL RBC 3.85 3.16 L (3.80-5.40) m/uL Hgb 11.3 L 9.8 L D (11.4-16.0) gm/dL Hct 35.7 29.3 L (34.0-46.0) % Plt Count 271 248 (150-450) k/uL Comprehensive Metabolic Panel 03/25/20 03/26/20 Range/Units 17:01 02:34 Sodium 140 140 (137-145) mmol/L Potassium 4.2 3.8 (3.5-5.1) mmol/L Chloride 108 H 112 H (98-107) mmol/L Carbon Dioxide 20 L 19 L (22-30) mmol/L BUN 42 H 42 H (7-17) mg/dL Creatinine 2.11 H 1.96 H (0.52-1.04) mg/dL Glucose 163 H 115 H (74-99) mg/dL Calcium 9.8 9.1 (8.4-10.2) mg/dL AST 18 19 (14-36) U/L ALT 11 8 (4-34) U/L Alkaline Phosphatase 86 67 (38-126) U/L Total Protein 6.8 5.7 L (6.3-8.2) g/dL Albumin 3.9 3.0 L (3.5-5.0) g/dL Current Medications Generic Name Dose Route Start Last Admin Trade Name Freq PRN Reason Stop Dose Admin Alprazolam 0.25 mg 03/25/20 20:48 03/25/20 22:32 Alprazolam 0.25 Mg Tab PO 0.25 mg BID PRN Administration Anxiety Amlodipine Besylate 10 mg 03/25/20 21:00 03/25/20 22:18 Amlodipine 10 Mg Tab PO 10 mg HS NIRMAL Administration Aspirin 325 mg 03/26/20 09:00 Aspirin 325 Mg Tab PO DAILY NIRMAL Atenolol 50 mg 03/25/20 21:00 03/25/20 22:18 Atenolol 50 Mg Tab PO 50 mg HS NIRMAL Administration Atorvastatin Calcium 40 mg 03/25/20 21:00 03/25/20 22:18 Atorvastatin 40 Mg Tab PO 40 mg HS NIRMAL Administration Dipyridamole/Aspirin 1 each 03/26/20 09:00 Dipyridamole-Aspirin 200-25 Mg 1 Each Cpmp.12hr PO DAILY NIRMAL Furosemide 40 mg 03/26/20 09:00 Furosemide 40 Mg Tab PO DAILY NIRMAL Hydralazine HCl 50 mg 03/25/20 21:00 03/25/20 22:18 Hydralazine Hcl 50 Mg Tab PO 50 mg BID NIRMAL Administration Heparin Sodium/Sodium Chloride 250 mls @ 9.997 mls/hr 03/25/20 18:30 03/25/20 18:44 25,000 unit/ Sodium Chloride IV 11.6 units/kg/hr .Q24H NIRMAL 9.997 mls/hr Administration Protocol 11.6 UNITS/KG/HR Insulin Detemir 25 unit 03/25/20 21:00 03/25/20 22:17 Insulin Detemir (Levemir) 100 Unit/Ml Syr SQ 25 unit HS NIRMAL Administration Isosorbide Mononitrate 60 mg 03/26/20 09:00 Isosorbide Mononitrate Er 60 Mg Tab.Er.24h PO DAILY NIRMAL Loratadine 10 mg 03/25/20 20:48 Loratadine 10 Mg Tab PO DAILY PRN seasonal allergies Nitroglycerin 0.4 mg 03/25/20 18:24 03/25/20 21:07 Nitroglycerin Sl Tabs 0.4 Mg Tab SUBLINGUAL 0.4 mg Q5M PRN Administration Chest Pain Nitroglycerin 1 inch 03/26/20 00:00 03/26/20 05:34 Nitroglycerin Oint 1 Inch/Gm Packet TOPICAL Not Given Q6HR [facility] Nitroglycerin 0.4 mg 03/25/20 20:48 Nitroglycerin Sl Tabs 0.4 Mg Tab SUBLINGUAL DIRECTED PRN Chest Pain Pantoprazole Sodium 40 mg 03/26/20 07:30 03/26/20 05:34 Pantoprazole 40 Mg Tablet PO Not Given DAILY@0730 [facility] Intake and Output 03/25/20 03/26/20 03/26/20 22:59 06:59 14:59 Intake Total 540 Balance 540 Intake: Oral 540 Other: Voiding Method Toilet # Voids 2 Weight 86.183 kg 86.183 kg 03/26/20 02:29 03/26/20 02:34
[2020-03-26 15:23] LABS: Ferritin 154.9 ng/mL (10.0-291.0)
[2020-03-26 15:24] LABS: % Iron Saturation 10.33 (12.00-45.00)
[2020-03-26] MEDS: ISOSORBIDE MONONITRATE ER 60 MG TAB.ER.24H PO SCH (15:42)
[2020-03-26 16:52] LABS: Glucose,Whole Blood 104 mg/dL (75-99)
[2020-03-26] MEDS: HEPARIN SOD,PORK IN 0.45% NACL 25,000 UNIT in 0.45% NACL 1 250ML.BAG IV SCH (18:10)
[2020-03-26 20:39] LABS: Glucose,Whole Blood 131 mg/dL (75-99)
[2020-03-26] MEDS: atenoloL 50 MG TAB PO SCH (20:56)
[2020-03-26] MEDS: INSULIN DETEMIR (LEVEMIR) 100 UNIT/ML SYR SQ SCH (20:56)
[2020-03-26] MEDS: ATORVASTATIN 40 MG TAB PO SCH (20:56)
[2020-03-26] MEDS: amLODIPine 10 MG TAB PO SCH (20:57)
[2020-03-27] MEDS: NITROGLYCERIN OINT 1 INCH/GM PACKET TOPICAL SCH ×4 (00:33→17:32)
[2020-03-27] MEDS: ASPIRIN 325 MG TAB PO SCH (06:26)
[2020-03-27] MEDS: DIPYRIDAMOLE-ASPIRIN 200-25 MG 1 EACH CPMP.12HR PO SCH (06:26)
[2020-03-27] MEDS: PANTOPRAZOLE 40 MG TABLET PO SCH (06:26)
[2020-03-27] MEDS: SODIUM BICARBONATE TAB 650 MG TAB PO SCH ×2 (06:26→21:13)
[2020-03-27 06:35] LABS: Glucose,Whole Blood 79 mg/dL (75-99)
[2020-03-27] MEDS ORDERED: DEXTROSE 5% IN WATER 1,000 ML with SODIUM BICARB (1 MEQ/ML) 150 ML IV SCH (07:00)
[2020-03-27 07:06] LABS: Calcium 9.3 mg/dL (8.4-10.2); Magnesium 1.5 mg/dL (1.6-2.3); Potassium 3.5 mmol/L (3.5-5.1)
[2020-03-27] MEDS ORDERED: fentaNYL (PF) 50 MCG/ML 2 ML AMP IV ONE (09:04)
[2020-03-27] MEDS ORDERED: MIDAZOLAM 2 MG/2 ML VIAL IV ONE (09:04)
[2020-03-27] MEDS ORDERED: LIDOCAINE 1% INJ 10MG/ML (20 ML MDV) SQ ONE (09:04)
[2020-03-27] MEDS ORDERED: SODIUM CHLORIDE 0.9% 500 ML 500 ML IV ONE (09:04)
[2020-03-27] MEDS ORDERED: RX INFO: IV CONTRAST WAS GIVEN 1 EACH MISC MISCELLANE PRN (09:41)
[2020-03-27] MEDS ORDERED: IOPAMIDOL-370 125ML BTL INJ ONE (09:41)
--- NOTE | 2020-03-27 09:49 | P.CARDCATH ---
Date of Procedure: 03/27/20 Preoperative Diagnosis: Unstable angina CHF and mitral regurgitation Postoperative Diagnosis: Severe triple-vessel disease Procedure(s) Performed: Left heart catheterization with selective coronary arteriography Description of Procedure: HISTORY: This is a 89-year-old female with history of diabetes hypertension and recent bout of suggestive heart failure with severe mitral regurgitation was recently admitted to this hospital with complaints of chest pain and exertional shortness of breath. Patient has chronic renal failure with creatinine of 1.94. In view of her ongoing symptoms, patient wanted to have cardiac catheterization for definite diagnosis. Patient and patient's son fully understood the risks and benefits of procedure including worsening of renal failure requiring dialysis. CONSENT:I have discussed the risks, benefits and alternative therapies for the above-mentioned procedure and for both sedation/analgesia as well as necessary blood product administration, if indicated, as they pertain to this patient. The patient has indicated understanding and acceptance of the risks and procedures discussed. PROCEDURE: Patient was brought to the lab in a fasting state. Patient was given some IV sedation. The right groin is infiltrated with lidocaine and right femoral artery was entered using Seldinger technique. A 6-Swazi catheter was left in place and selective coronary arteriography was performed. Patient tolerated the procedure well. Femoral angiogram was performed and manual was applied for hemostasis. No immediate complications were noted and patient was transferred to [facility] in a stable condition Conscious Sedation: Versed 0.5mg Fentanyl 12.5 g Duration 30minutes HEMODYNAMICS: The aortic pressure is 130/70. Left ventricular end-diastolic pressures were not obtained SELECTIVE CORONARY ARTERIOGRAPHY: LEFT MAIN: Long and free of any significant occlusive disease THE LEFT ANTERIOR DESCENDING CORONARY ARTERY:. This is a moderate caliber vessel with diffuse disease throughout its length. There is about 80-90% stenosis of proximal about 80% mid LAD and 70-80% distal LAD THE LEFT CIRCUMFLEX AND IS CORONARY ARTERY: This is a fair caliber vessel giving rise to good-sized OM branch. The OM branch has about 70% stenosis. The midcircumflex also has about 80% stenosis THE RIGHT CORONARY ARTERY:. This is a good caliber vessel with a 80-90% stenosis in midportion. The right coronary artery is calcified. Throat its length. There are collaterals from the left coronary system LEFT VENTRICULOGRAPHY: Not performed FINAL IMPRESSION:. Triple-vessel disease including the right proximal LAD, proximal OM branch. Heavily calcified, diffusely diseased vessels PLAN:. Patient is not a good candidate for intervention or bypass surgery, given her diffuse nature of the disease and calcified lesions. Patient also has significant mitral regurgitation PROGNOSIS:. We'll obtain an opinion from cardiac surgeon and also instantizer operator. Meanwhile we'll continue medical therapy. Prognosis is guarded
[2020-03-27] MEDS ORDERED: FUROSEMIDE 10 MG/ML 4 ML VIAL IV STA ×2 (10:39→14:24)
[2020-03-27] MEDS: ISOSORBIDE MONONITRATE ER 60 MG TAB.ER.24H PO SCH (10:51)
[2020-03-27] MEDS: FUROSEMIDE 40 MG TAB PO SCH (10:51)
[2020-03-27] MEDS: hydrALAZINE HCL 50 MG TAB PO SCH ×2 (10:51→23:41)
--- NOTE | 2020-03-27 10:57 | P.PN ---
Subjective Progress Note Date: 03/27/20 HISTORY OF PRESENT ILLNESS 89-year-old female one of Dr. Ruslan Hayes's patient with past medical history of chronic kidney disease, hypertension, hyperlipidemia, type 2 diabetes , history of gout, history of TIA in the past with a chronic anemia who was hospitalized at [facility] between 03/03 till 03/08/2001 he for non-ST RI and ended up going for NICOLAS which showed severe mitral regurgitation and patent bingham ovale patient also was treated for diastolic congestive heart failure with IV diuretics and adjustment of her medication long talk with nephrology about the possibility of intervention including an angiogram because of the stage IV chronic kidney disease decided not to based on the high possibility of patient might ended up on hemodialysis. Medication were adjusted patient was on more Lasix started on atorvastatin hydralazine and isosorbide mononitrate 30 mg a day she felt slightly but better. [place] patient presented to [facility] emergency department this morning with worsening midsternal chest pain radiating toward the teeth and according to her has been having pain on and off for the last 3 months become much worse she is taking 3 nitroglycerin with subsided the pain completely. Finding in the emergency department still GFR of 20 troponin was 0.05 9.063 her EKG showed slight ST depression in V3 to V6 with inverted are and 3 and aVF consistent with previous inferior infarct. Patient chest x-ray shows hiatal hernia with partial intrathoracic stomach probable basilar atelectasis correlated with possible pneumonia along with pleural effusion. C ompression fracture near the thoracic lumbar junction of indeterminate age with no other finding. Patient is known to cardiology from before with the current finding decided to admit patient to the hospital continue heparin drip consult cardiology keep patient nothing by mouth for possible going for heart cath tomorrow. 03/26: Patient is seen today in the emergency center and is still waiting for room and the cardiac floor. She has been seen by cardiology with plan for heart catheterization tomorrow. Consult added for nephrology and Dr. Aggarwal has recommended maintaining Lasix 40 mg daily, start a bicarb drip prior to her catheterization. Oral sodium bicarbonate added and iron studies ordered. Renal ultrasound revealed cortical thinning and increased echogenicity correlate for chronic medical renal disease. Hypoechoic nodules in both kidneys are indeterminate but most likely on the basis of simple cyst.Patient has been afebrile, heart rate 69, blood pressure 87/54, pulse ox 94% on 2 L nasal cannula. Repeat blood work reveals hemoglobin of 9.8. CO2 19, BUN 42 and creatinine 1.96. Troponins are 0.059, 0.063, 0.060. 03/27: Patient is scheduled for heart catheterization today with Dr. Manzanares. Patient has been afebrile, heart rate 73, blood pressure 121/57, pulse ox 95% on 3 L nasal cannula. Repeat blood work reveals potassium of 3.5, BUN 40 creatinine 1.9. Patient continues to be followed by nephrology. REVIEW OF SYSTEMS CONSTITUTIONAL: Well-developed no acute respiratory distress. Denies fevers. Denies chills. EYES: No icterus sclerae, no conjunctivitis. EARS, NOSE, MOUTH, THROAT, and FACE: No sore throat, lymphadenopathy, carotid bruits or deformity. RESPIRATORY: Denies chest pain mild shortness of breath CARDIOVASCULAR: Anginal chest pain worsening with exertion along with mild palpitation and PND. GASTROINTESTINAL: No Abd pain, Nausea or vomiting, no Diarrhea or constipation, No GI Bleed, no distention or masses. GENITOURINARY: Negative for Hematuria or UTI, no kidney stones. INTEGUMENT/BREAST: Negative for any muscular injury with mild osteoarthritis.. HEMATOLOGIC/LYMPHATIC: Negative for bleed or purpura. MUSCULOSKELTAL: Negative for Myalgia or arthralgia. NEURLOGICAL: No LOC, Sz or syncope, blurred vision dizziness or abnormality.. BEHAVIORAL/PSYCH: Negative. ENDOCRINE: Negative. PHYSICAL EXAMINATION General Appearance: Alert, cooperative, no distress, appears stated age. Neck HEENT: Supple, no lymphadenopathy, no thyroid enlargement, no carotid bruits. Lungs: Clear to auscultation without crackles or wheezes no rhonchi, no deformity. Chest Wall: Decrease expansion with deep inspiration no tenderness and no deformity was found on exam, no costochondral pain or discomfort. Heart: Regular rate and rhythm, S1, S2 , positive systolic murmur Back: Symmetric, no curvature, ROM normal, no CVA tenderness. Abdomen: Soft, non-tender, bowel sounds active all four quadrants, no masses, no organomegaly. Extremities: Extremities normal, atraumatic, no cyanosis or edema. Pulses: 2+ and symmetric. Skin: Skin color, texture, tugor normal, no rashes or lesions. Neurologic: Alert oriented x3 cranial nerves II through XII intact, no motor deficit, no abnormal balance or gait. ASSESSMENT AND PLAN 1 unstable angina: With recurrent chest pain for the last few month. Patient is on heparin drip, cardiology consult appreciated. Heart catheterization today. 2 non-ST RI: Patient was seen at [facility] and no intervention was done based on the severity of her kidney function. 3 stage IV chronic kidney disease: Still with GFR of 20 continue hydration and reexamined the factor being testing by tomorrow.Consult with nephrology appreciated. Patient started on oral bicarb, bicarb drip. Renal ultrasound as above 4 severe large hiatal hernia: Patient can benefit from stain on pantoprazole 40 mg daily for now. 5 hyperlipidemia: Was started on atorvastatin 40 mg daily. 6 type 2 diabetes on insulin: Continue patient on Levemir 25 units daily along with Accu-Chek with sliding scales coverage. 7 hypertension: Blood pressure is better controlled so far on Tenormin 50 mg a day amlodipine 10 mg daily hydralazine 50 mg twice a day continue medication and titrate hydralazine if needed. 8 previous history of TIA still on Aggrenox continue on anticoagulation. 9 patent foramen ovale and severe mitral regurgitation 10 GI prophylaxis: On pantoprazole. DVT prophylaxis: Continue patient on heparin drip. CODE STATUS: Full code. DISCHARGE PLAN home. Impression and plan of care have been directed as dictated by the signing physician. [place] Mayo nurse practitioner acting as scribe for signing physician. Objective - Vital Signs Vital signs: Vital Signs Temp 97.5 F L 03/27/20 06:00 Pulse 73 03/27/20 06:00 Resp 18 03/27/20 06:00 BP 121/57 03/27/20 06:00 Pulse Ox 95 03/27/20 06:00 Intake & Output 03/26/20 03/27/20 03/27/20 18:59 06:59 18:59 Intake Total 234.263 43.154 78.879 Balance 234.263 43.154 78.879 Weight 85 kg Intake: Amount of Fluid Infused ( 0 ml) Intake, IV Titration 234.263 43.154 78.879 Amount Heparin Sod,Pork in 0.45% 234.263 43.154 78.879 NaCl 25,000 unit In 0.45 % NaCl 1 250ml.bag @ 11.6 UNITS/KG/HR 9.997 mls/hr IV .Q24H [facility] Rx#: [id number] Other: Voiding Method Bedside Commode # Voids 2 0 1 # Bowel Movements 1 - Labs CBC & Chem 7: 03/26/20 02:29 03/27/20 05:19 Labs: Abnormal Lab Results - Last 24 Hours (Table) 03/26/20 03/26/20 03/26/20 Range/Units 02:34 16:40 20:37 APTT (22.0-30.0) sec Chloride (98-107) mmol/L Carbon Dioxide (22-30) mmol/L BUN (7-17) mg/dL Creatinine (0.52-1.04) mg/dL POC Glucose (mg/dL) 104 H 131 H (75-99) mg/dL Magnesium (1.6-2.3) mg/dL Iron 25 L (50-170) ug/dL % Saturation 10.33 L (12.00-45.00) 03/27/20 03/27/20 Range/Units 05:19 05:19 APTT 49.4 H (22.0-30.0) sec Chloride 115 H (98-107) mmol/L Carbon Dioxide 19 L (22-30) mmol/L BUN 40 H (7-17) mg/dL Creatinine 1.90 H (0.52-1.04) mg/dL POC Glucose (mg/dL) (75-99) mg/dL Magnesium 1.5 L (1.6-2.3) mg/dL Iron (50-170) ug/dL % Saturation (12.00-45.00)
--- NOTE | 2020-03-27 11:52 | P.PN ---
Subjective Patient is seen in follow-up for acute kidney injury on chronic kidney disease. Renal function is stable. Underwent cardiac catheterization this morning which revealed triple-vessel disease. She became short of breath. She just receive a dose of IV Lasix. She is off IV fluids. Vital signs are stable. General: The patient appeared well nourished and normally developed. HEENT: Head exam is unremarkable. Neck is without jugular venous distension. LUNGS: Breath sounds decreased. HEART: Rate and Rhythm are regular. ABDOMEN: Soft, nontender. EXTREMITITES: No edema. Objective - Vital Signs Vital signs: Vital Signs Temp 97.5 F L 03/27/20 06:00 Pulse 73 03/27/20 06:00 Resp 18 03/27/20 06:00 BP 121/57 03/27/20 06:00 Pulse Ox 95 03/27/20 06:00 Intake & Output 03/26/20 03/27/20 03/27/20 18:59 06:59 18:59 Intake Total 234.263 43.154 128.879 Balance 234.263 43.154 128.879 Weight 85 kg Intake: IV 50 Amount of Fluid Infused ( 0 ml) Intake, IV Titration 234.263 43.154 78.879 Amount Heparin Sod,Pork in 0.45% 234.263 43.154 78.879 NaCl 25,000 unit In 0.45 % NaCl 1 250ml.bag @ 11.6 UNITS/KG/HR 9.997 mls/hr IV .Q24H [facility] Rx#: [id number] Other: Voiding Method Bedside Commode # Voids 2 0 1 # Bowel Movements 1 - Labs CBC & Chem 7: 03/26/20 02:29 03/27/20 05:19 Labs: Abnormal Lab Results - Last 24 Hours (Table) 03/26/20 03/26/20 03/26/20 Range/Units 02:34 16:40 20:37 APTT (22.0-30.0) sec Chloride (98-107) mmol/L Carbon Dioxide (22-30) mmol/L BUN (7-17) mg/dL Creatinine (0.52-1.04) mg/dL POC Glucose (mg/dL) 104 H 131 H (75-99) mg/dL Magnesium (1.6-2.3) mg/dL Iron 25 L (50-170) ug/dL % Saturation 10.33 L (12.00-45.00) 03/27/20 03/27/20 Range/Units 05:19 05:19 APTT 49.4 H (22.0-30.0) sec Chloride 115 H (98-107) mmol/L Carbon Dioxide 19 L (22-30) mmol/L BUN 40 H (7-17) mg/dL Creatinine 1.90 H (0.52-1.04) mg/dL POC Glucose (mg/dL) (75-99) mg/dL Magnesium 1.5 L (1.6-2.3) mg/dL Iron (50-170) ug/dL % Saturation (12.00-45.00) Assessment and Plan Plan: Assessment: 1. Acute kidney injury secondary to ATN secondary to hypotension versus chronic kidney disease. Unknown baseline renal function. Renal function fairly stable this admission. Creatinine 1.9 this morning. 2. Chronic kidney disease. Need to establish baseline renal function. 3. Non-ST elevated myocardial infarction. Status post cardiac catheterization this morning which revealed triple-vessel disease. 4. Insulin-dependent diabetes mellitus. 5. Hypertension with chronic kidney disease. Controlled. 6. Metabolic acidosis secondary to chronic kidney disease. Maintained on oral bicarbonate. 7. Anemia of chronic kidney disease. Iron deficiency noted. 8. Hypomagnesemia from poor intake and diuretics. Plan: Hold antihypertensives for systolic blood pressure less than 110. Maintain Lasix 40 mg orally daily. She also received dose of IV Lasix this morning. Replace magnesium. 2 g IV today. IV iron 3 doses. First dose today. Continue to monitor renal function and urine output as she received IV contrast this morning. Unable to receive adequate IV hydration due to shortness of breath and CHF.
[2020-03-27 11:58] LABS: Glucose,Whole Blood 100 mg/dL (75-99)
[2020-03-27] MEDS: ALPRAZolam 0.25 MG TAB PO PRN ×2 (13:27→21:14)
--- NOTE | 2020-03-27 13:39 | P.GSCN ---
History of Present Illness Consult date: 03/27/20 Reason for Consult: Triple-vessel coronary artery disease and severe mitral valve regurgitation. Requesting physician: Javon Manzanares History of present illness: This is an 89-year-old female patient who is followed by Dr. Ruslan Hayes on an outpatient basis. She is a past medical history significant for hype rtension, hyperlipidemia, diabetes mellitus type 2, chronic kidney disease, gout, history of TIA, chronic anemia, SVT and history of non-ST elevated myocardial infarction. On 03/25/2020 the patient presented to the emergency department here at [facility] with complaints of chest pain, pain to her teeth and numbness to her left arm. She also reports that she has been having some increased shortness of breath for about the last 6 months. She denies any recent fever, diaphoretic episodes, nausea, vomiting, orthopnea, dizziness or syncope. The patient also reports the episodes of chest pain and pain to her teeth have been coming off and on for the past 6 months but on 03/25/2020 the pain became too much for her to handle. Initial laboratory results showed a WBC count 9.1, hemoglobin 11.3, platelets 271, chloride 108, CO2 20, BUN 42, creatinine 2.11, glucose 163, magnesium 1.4 and initial troponins 0.063. Due to the patient's presenting symptoms and positive troponins on her labs a consult was placed to cardiology associates Dr. Manzanares. A 12-lead EKG was also completed which showed normal sinus rhythm with ST depression in her inferior lateral leads. According to her chart the patient had a recent admission to [facility] where she underwent a transesophageal echocardiogram which showed severe mitral valve regurgitation, mild tricuspid valve regurgitation, PFO and a normal left ventricular systolic function with injured ejection fraction between 55 and 60%. Today 03/27/2020 after obtaining consent she underwent a cardiac catheterization by Dr. Manzanares which demonstrated an 80-90% stenosis to her her proximal left anterior descending coronary artery, a 70-80% stenosis to her distal left anterior descending coronary artery, a 70% stenosis to her obtuse marginal coronary artery, and 80% stenosis to her mid circumflex coronary artery and an 80-90% stenosis to her midportion of her right coronary artery. Due to the patient's presenting symptoms, known history of severe mitral valve regurgitation and the results of her cardiac catheterization a consult was placed to Dr. Elver Guillory from cardiothoracic surgery for further evaluation and treatment recommendations. Review of Systems A 14 point review of systems was completed was negative except as mentioned in the HPI. Past Medical History Past Medical History: Coronary Artery Disease (CAD), Chest Pain / Angina, Heart Failure, CVA/TIA, Diabetes Mellitus, GERD/Reflux, Hyperlipidemia, Hypertension, Memory Impairment, Musculoskeletal Disorder, Renal Disease, Supraventricular Tachycardia (SVT), Thyroid Disorder Additional Past Medical History / Comment(s): Severe mitral regurgitation and patent bingham ovale. Generalized anxiety attacks, chronic constipation, vasomotor rhinitis, migraine with visual aura, iron deficiency anemia, B12 deficiency, chronic vertigo, lumbar degenerative disc disease, osteoporosis with pathology fracture, history of non-ST MT, cystitis with hematuria, chronic edema History of Any Multi-Drug Resistant Organisms: None Reported Past Surgical History: Cholecystectomy, Hysterectomy, Tonsillectomy Past Psychological History: Anxiety, Depression Smoking Status: Never smoker Past Alcohol Use History: None Reported Past Drug Use History: None Reported - Past Family History Mother Family Medical History: Congestive Heart Failure (CHF), Diabetes Mellitus Father Family Medical History: Cancer (Prostate) Medications and Allergies Home Medications Medication Instructions Recorded Confirmed Type ALPRAZolam [Xanax] 0.25 mg PO BID PRN 03/25/20 03/25/20 History Atenolol [Tenormin] 50 mg PO HS 03/25/20 03/25/20 History Atorvastatin [Lipitor] 40 mg PO HS 03/25/20 03/25/20 History Dipyridamole-Aspirin 200-25 mg 1 tab PO DAILY 03/25/20 03/25/20 History [Aggrenox 25MG -200MG] Furosemide [Lasix] 40 mg PO DAILY 03/25/20 03/25/20 History Insulin Glargine,Hum.rec.anlog 25 units SQ HS 03/25/20 03/25/20 History [Lantus Solostar] Isosorbide Mononitrate ER [Imdur] 60 mg PO DAILY 03/25/20 03/25/20 History Lansoprazole [Prevacid] 15 mg PO DAILY 03/25/20 03/25/20 History Loratadine [Claritin] 10 mg PO DAILY PRN 03/25/20 03/25/20 History Nitroglycerin Sl Tabs [Nitrostat] 0.4 mg SUBLINGUAL DIRECTED PRN 03/25/20 03/25/20 History amLODIPine [Norvasc] 10 mg PO HS 03/25/20 03/25/20 History hydrALAZINE HCL [Apresoline] 50 mg PO BID 03/25/20 03/25/20 History Allergies Allergy/AdvReac Type Severity Reaction Status Date / Time No Known Allergies Allergy Verified 03/25/20 19:23 Surgical - Exam Vital Signs Temp Pulse Resp BP Pulse Ox 97.9 F 80 18 117/60 96 03/25/20 16:30 03/25/20 16:30 03/25/20 16:30 03/25/20 16:30 03/25/20 16:30 - General well developed, well nourished, no distress, no pain, obese - Eyes PERRL, normal ocular movement, no icteric - ENT normal pinna, normal nares, normal mucosa, no hearing loss, no congestion - Neck Neck is supple, no lymphadenopathy. no masses, no bruits, trachea midline, no venous distension - Respiratory Lung sounds essentially clear throughout, diminished bilateral bases. Respirations are symmetrical and nonlabored. - Cardiovascular Regular rhythm and rate. S1 and S2 present, negative for S3, or gallop. Positive systolic murmur heard best to her left sternal border. - Abdomen Abdomen soft, nontender and nondistended. Active bowel sounds present in all 4 abdominal quadrants. No guarding or rigidity. No organomegaly appreciated. - Genitourinary Deferred - Rectum Deferred - Integumentary no rash, no growths, no abnormal pigmentation - Neurologic Cranial nerves II through XII intact. No motor or focal deficits. - Musculoskeletal Moves all 4 extremities with equal strength. - Psychiatric oriented to time, oriented to person, oriented to place, speech is normal Results - Labs 03/26/20 02:29 03/27/20 05:19 Abnormal Lab Results - Last 24 Hours (Table) 03/26/20 03/26/20 03/26/20 Range/Units 02:34 16:40 20:37 APTT (22.0-30.0) sec Chloride (98-107) mmol/L Carbon Dioxide (22-30) mmol/L BUN (7-17) mg/dL Creatinine (0.52-1.04) mg/dL POC Glucose (mg/dL) 104 H 131 H (75-99) mg/dL Magnesium (1.6-2.3) mg/dL Iron 25 L (50-170) ug/dL % Saturation 10.33 L (12.00-45.00) 03/27/20 03/27/20 Range/Units 05:19 05:19 APTT 49.4 H (22.0-30.0) sec Chloride 115 H (98-107) mmol/L Carbon Dioxide 19 L (22-30) mmol/L BUN 40 H (7-17) mg/dL Creatinine 1.90 H (0.52-1.04) mg/dL POC Glucose (mg/dL) (75-99) mg/dL Magnesium 1.5 L (1.6-2.3) mg/dL Iron (50-170) ug/dL % Saturation (12.00-45.00) Diabetes panel 03/27/20 Range/Units 05:19 Sodium 142 (137-145) mmol/L Potassium 3.5 (3.5-5.1) mmol/L Chloride 115 H (98-107) mmol/L Carbon Dioxide 19 L (22-30) mmol/L BUN 40 H (7-17) mg/dL Creatinine 1.90 H (0.52-1.04) mg/dL Glucose 78 (74-99) mg/dL Calcium 9.3 (8.4-10.2) mg/dL Calcium panel 03/27/20 Range/Units 05:19 Calcium 9.3 (8.4-10.2) mg/dL Pituitary panel 03/27/20 Range/Units 05:19 Sodium 142 (137-145) mmol/L Potassium 3.5 (3.5-5.1) mmol/L Chloride 115 H (98-107) mmol/L Carbon Dioxide 19 L (22-30) mmol/L BUN 40 H (7-17) mg/dL Creatinine 1.90 H (0.52-1.04) mg/dL Glucose 78 (74-99) mg/dL Calcium 9.3 (8.4-10.2) mg/dL Adrenal panel 03/27/20 Range/Units 05:19 Sodium 142 (137-145) mmol/L Potassium 3.5 (3.5-5.1) mmol/L Chloride 115 H (98-107) mmol/L Carbon Dioxide 19 L (22-30) mmol/L BUN 40 H (7-17) mg/dL Creatinine 1.90 H (0.52-1.04) mg/dL Glucose 78 (74-99) mg/dL Calcium 9.3 (8.4-10.2) mg/dL - Imaging Additional studies: Cardiac catheterization films reviewed by Dr. Elver Guillory from cardiothoracic surgery. Assessment and Plan Assessment: 1. Symptomatic multiple vessel coronary artery disease 2. Non-ST elevated myocardial infarction this admission 3. History of severe mitral valve regurgitation and patent foramen ovale 4. Hypertension 5. Hyperlipidemia 6. Diabetes mellitus type 2 7. History of TIA 8. Chronic kidney disease stage IV 9. History of gout 10. History of chronic anemia 11. History of anxiety and depression Plan: The patient was seen and examined at her bedside in the extended stay unit. Her chart and diagnostics were reviewed. She was also seen and examined by Dr. Elver Guillory from cardiothoracic surgery. Dr. Guillory reviewed her hernia catheterization films and discussed the findings with the patient. Recommendations are for continued maximized medical therapy, the patient is not a surgical candidate as she is very high risk. Recommendations for PCI and possible mitral clipping. Dr. Guillory discussed this with Dr. Manzanares from cardiology. Medical management recommendations per primary care's service. Thank you Dr. Manzanares for this consult, we will continue to follow the patient on an as-needed basis please call for any further assistance or questions. I have seen and examined the patient and agree with the assessment and plan as dictated by my nurse practitioner. Time with Patient: Greater than 30
[2020-03-27] MEDS: MAGNESIUM SULFATE-D5W PMX 1 GM in DEXTROSE/WATER 1 100ML.BAG IVPB SCH ×2 (13:49→15:43)
--- NOTE | 2020-03-27 14:15 | XR ---
EXAMINATION TYPE: XR chest 1V portable DATE OF EXAM: 03/27/2020 COMPARISON: Prior chest x-ray 03/25/2020 HISTORY: Shortness of breath TECHNIQUE: Single frontal view of the chest is obtained. FINDINGS: Bilateral airspace disease is present. No evident pneumothorax. Blunting the costophrenic angles is noted. Heart size is stable and borderline enlarged. Aorta is dense. There are overlying ca rdiac leads. IMPRESSION: Early for pneumonia, edema, possible associated effusions
[2020-03-27 16:29] LABS: Appearance,Urine Clear (Clear); Bilirubin,Urine Negative (Negative); Blood,Urine Negative (Negative); Color,Urine Yellow; Glucose,Urine (UA) Negative (Negative); Ketones,Urine Negative (Negative); Leukocyte Esterase,Urine Negative (Negative); Nitrite,Urine Negative (Negative); Protein,Urine Negative (Negative); Specific Gravity,Urine 1.016 (1.001-1.035); Urobilinogen,Urine <2.0 mg/dL (<2.0)
[2020-03-27 16:51] LABS: Glucose,Whole Blood 127 mg/dL (75-99)
[2020-03-27] MEDS: SODIUM FERRIC GLUCONAT-SUCROSE 125 MG in SODIUM CHLORIDE 0.9% 100 ML IVPB SCH (17:39)
--- NOTE | 2020-03-27 17:39 | CT ---
EXAMINATION TYPE: CODE STROKE: CT brain wo contr DATE OF EXAM: 03/27/2020 COMPARISON: 03/28/2011 HISTORY: Right lower vision loss over last [address] DLP: 1070.4 mGycm Automated exposure control for dose reduction was used. FINDINGS: There is cerebral cortical atrophy. There is no mass effect nor midline shift. There is no sign of in tracranial hemorrhage. The calvarium is intact. Skull base is intact. IMPRESSION: Cerebral atrophy. No acute intracranial abnormality. No adverse change compared to old exam.
[2020-03-27 18:11] LABS: Albumin 3.6 g/dL (3.5-5.0); Calcium 9.3 mg/dL (8.4-10.2); Potassium 4.5 mmol/L (3.5-5.1); Total Bilirubin 0.9 mg/dL (0.2-1.3); Total Protein 6.7 g/dL (6.3-8.2)
[2020-03-27 18:23] LABS: Creatine Kinase MB 7.8 ng/mL (0.0-2.4)
[2020-03-27 18:34] LABS: Basophils % (A) 0 %; Eosinophils # (A) 0.1 k/uL (0-0.7); Eosinophils % (A) 1 %; HCT 36.6 % (34.0-46.0); HGB 11.6 gm/dL (11.4-16.0); Hypochromasia Slight; Lymphocytes # (A) 1.1 k/uL (1.0-4.8); Lymphocytes % (A) 11 %; MCH 29.6 pg (25.0-35.0); MCHC 31.7 g/dL (31.0-37.0); MCV 93.4 fL (80.0-100.0); Mean Platelet Volume 8.4; Monocytes # (A) 0.8 k/uL (0-1.0); Monocytes % (A) 7 %; Neutrophils # (A) 8.2 k/uL (1.3-7.7); Neutrophils % (A) 80 %; RBC 3.92 m/uL (3.80-5.40); WBC 10.3 k/uL (3.8-10.6)
[2020-03-27 18:48] LABS: Platelet Count 300 k/uL (150-450)
[2020-03-27 19:39] LABS: Troponin I 0.435 ng/mL (0.000-0.034)
[2020-03-27 20:50] LABS: Glucose,Whole Blood 207 mg/dL (75-99)
[2020-03-27] MEDS ORDERED: ASPIRIN 81 MG PO STA (21:11)
[2020-03-27] MEDS: INSULIN DETEMIR (LEVEMIR) 100 UNIT/ML SYR SQ SCH (21:13)
[2020-03-27] MEDS: ATORVASTATIN 40 MG TAB PO SCH (21:13)
--- NOTE | 2020-03-27 23:07 | US ---
EXAMINATION TYPE: US carotid duplex BILAT DATE OF EXAM: 03/27/2020 COMPARISON: US CLINICAL HISTORY: stroke. Stroke per order. Patient poor historian. EXAM MEASUREMENTS: RIGHT: Peak Systolic Velocity (PSV) cm/sec ----- Right CCA: 48.6 ----- Right ICA: 50.0 ----- Right ECA: 48.1 ICA/CCA ratio: 1.0 RIGHT: End Diastole cm/sec ----- Right CCA: 10.9 ----- Right ICA: 12.3 ----- Right ECA: 0.0 LEFT: Peak Systolic Velocity (PSV) cm/sec ----- Left CCA: 68.6 ----- Left ICA: 59.6 ----- Left ECA: 45.3 ICA/CCA ratio: 0.9 LEFT: End Diastole cm/sec ----- Left CCA: 6.6 ----- Left ICA: 9.0 ----- Left ECA: 0.0 VERTEBRALS (direction of flow): Right Vertebral: Antegrade Left Vertebral: Antegrade Rhythm: Normal Intimal thickening seen bilaterally. Minimal plaque seen left carotid bulb. No elevated velocities at this time. Limited due to patient's movement/heavy breathing. IMPRESSION: There is estimated costophrenic percent stenosis at the origin left internal carotid artery due to pl aque formation. There is less than 25% stenosis right internal carotid artery. There is antegrade flow in the vertebral arteries. Criteria for Assigning % of Stenosis / Diameter reduction (Estimation based on the indirect measurements of the internal carotid artery velocities (ICA PSV). 1. Normal (no stenosis)=ICA PSV < 125 cm/s: ratio < 2.0: ICA EDV<40 cm/s. 2. Less than 50% stenosis=ICA PSV < 125 cm/s: ratio < 2.0: ICA EDV<40 cm/s. 3. 50 to 69% stenosis=ICA PSV of 125 to 230 cm/s: ration 2.0 ? 4.0: ICA EDV 40-100 cm/s. 4. Greater than 70% stenosis to near occlusion= ICA PSV > 230 cm/s: ratio > 4.0: ICA EDV > 100 cm/s. 5. Near occlusion= ICA PSV velocities may be low or undetectable: variable ratio and ICA EDV. 6. Total occlusion=unable to detect flow.
[2020-03-27] MEDS: amLODIPine 10 MG TAB PO SCH (23:41)
[2020-03-27] MEDS: atenoloL 50 MG TAB PO SCH (23:41)
[2020-03-28] MEDS: NITROGLYCERIN OINT 1 INCH/GM PACKET TOPICAL SCH ×4 (01:04→17:24)
[2020-03-28 05:55] LABS: Glucose,Whole Blood 97 mg/dL (75-99)
[2020-03-28] MEDS: PANTOPRAZOLE 40 MG TABLET PO SCH (06:06)
--- NOTE | 2020-03-28 08:52 | P.CNNES ---
History of Present Illness Consult date: 03/28/20 Requesting physician: Kevin Valencia Reason for Consult: Stroke code for visual disturbance History of Present Illness: This is an 89-year-old woman with medical history of hypertension, hypercholesterol, diabetes, acute on chronic kidney insufficiency that presented emergency department on the 03/25/2020 for anterior chest pain associated with the pain for last 3 months that is intermittent. As a result she was admitted cardiology was consulted. Cardiology felt the patient had a non-STEMI myocardial infarction. The patient underwent cardiac catheterization on 03/27/2020 which revealed triple-vessel disease. No intervention was done Post cardiac catheterization patient complains of right lower quadrant visual de fect. Time of onset of visual field defect was at 5pm on 03/27/20 and prior to that she felt normal. As a result stroke code was activated. Patient had the CT of the head which was reported as cerebral atrophy. No acute intracranial abnormality. No adverse changes compared to old exam. Course the patient nurse the patient had NIH of 1 for the visual field defect. She did not get CT angiography of the head and neck because of the recent procedure since he could not get contrast. I was notified it was Dr. Tovar was the stroke attending and he said the patient is not a candidate for TPA since the acute procedure. Carotid duplex was done on 03/27/2020 which was ordered by myself and was r eported as there is estimated the costophrenic percent stenosis at the origin of left internal carotid artery due to plaque formation. There is less than 25 stenosis of right internal carotid artery. EKG on 03/27/2020 is reported as normal sinus rhythm. ST and T-wave abnormality, consider lateral ischemia. Prolonged QT. Abnormal EKG. Patient coagulation studies on presentation is a PT of 10.1, INR is 1.0 and PTT is 25.8. Last PTT is on 03/27/2020 which is 49.4. Lipid profile: Triglyceride is 88, cholesterol is 97, LDL is a 40 and HDL is 39. TSH is 1.570 which is within normal limits. On presentation the patient the troponin is elevated it's 0.059 then went up to a 0.63. Per patient she denies history of stroke or TIA in the past. She denied being on Aspirin or antiplatelete or anticoagulation. Patient currently denies any headache, nausea or vomitting. She denies any focal motor deficit or sensory loss. She denies difficulty swallowing or getting her words out. She is curren tly complaining of shortness of breath. Review of Systems Review of system: The 12 point system was reviewed and apparent positive and negative per HPI. Past Medical History Past Medical History: Coronary Artery Disease (CAD), Chest Pain / Angina, Heart Failure, CVA/TIA, Diabetes Mellitus, GERD/Reflux, Hyperlipidemia, Hypertension, Memory Impairment, Musculoskeletal Disorder, Renal Disease, Supraventricular Tachycardia (SVT), Thyroid Disorder Additional Past Medical History / Comment(s): Severe mitral regurgitation and patent bingham ovale. Generalized anxiety attacks, chronic constipation, vasomotor rhinitis, migraine with visual aura, iron deficiency anemia, B12 deficiency, chronic vertigo, lumbar degenerative disc disease, osteoporosis with pathology fracture, history of non-ST NM, cystitis with hematuria, chronic edema History of Any Multi-Drug Resistant Organisms: None Reported Past Surgical History: Cholecystectomy, Hysterectomy, Tonsillectomy Past Psychological History: Anxiety, Depression Smoking Status: Never smoker Past Alcohol Use History: None Reported Past Drug Use History: None Reported - Past Family History Mother Family Medical History: Congestive Heart Failure (CHF), Diabetes Mellitus Father Family Medical History: Cancer (Prostate) Medications and Allergies Home Medications Medication Instructions Recorded Confirmed Type ALPRAZolam [Xanax] 0.25 mg PO BID PRN 03/25/20 03/25/20 History Atenolol [Tenormin] 50 mg PO HS 03/25/20 03/25/20 History Atorvastatin [Lipitor] 40 mg PO HS 03/25/20 03/25/20 History Dipyridamole-Aspirin 200-25 mg 1 tab PO DAILY 03/25/20 03/25/20 History [Aggrenox 25MG -200MG] Furosemide [Lasix] 40 mg PO DAILY 03/25/20 03/25/20 History Insulin Glargine,Hum.rec.anlog 25 units SQ HS 03/25/20 03/25/20 History [Lantus Solostar] Isosorbide Mononitrate ER [Imdur] 60 mg PO DAILY 03/25/20 03/25/20 History Lansoprazole [Prevacid] 15 mg PO DAILY 03/25/20 03/25/20 History Loratadine [Claritin] 10 mg PO DAILY PRN 03/25/20 03/25/20 History Nitroglycerin Sl Tabs [Nitrostat] 0.4 mg SUBLINGUAL DIRECTED PRN 03/25/20 03/25/20 History amLODIPine [Norvasc] 10 mg PO HS 03/25/20 03/25/20 History hydrALAZINE HCL [Apresoline] 50 mg PO BID 03/25/20 03/25/20 History Allergies Allergy/AdvReac Type Severity Reaction Status Date / Time No Known Allergies Allergy Verified 03/25/20 19:23 Physical Examination - Vital Signs Vital Signs: Vital Signs Temp Pulse Pulse Resp BP Pulse Ox 03/28/20 04:00 73 18 133/63 99 03/28/20 01:15 74 18 03/28/20 00:00 74 18 125/60 99 03/27/20 20:00 97.8 F 85 26 H 142/63 93 L 03/27/20 18:00 96 03/27/20 14:00 80 28 H 03/27/20 13:26 80 28 H 118/58 93 L 03/27/20 12:26 78 28 H 124/76 94 L 03/27/20 11:26 89 24 120/56 94 L 03/27/20 10:56 85 24 117/60 96 03/27/20 10:26 89 24 120/56 96 03/27/20 10:11 77 24 120/57 93 L 03/27/20 09:56 89 24 124/58 93 L 03/27/20 09:41 24 113/60 94 L 03/27/20 08:00 89 24 Intake and Output 03/27/20 03/28/20 03/28/20 22:59 06:59 14:59 Intake Total 950 Output Total 825 325 Balance 125 -325 Intake: Intake, IV Titration 650 Amount Dextrose 5% in Water 1, 350 000 ml @ 75 mls/hr IV . [id number] NIRMAL with Sodium Bicarb (1 Meq/ml) 150 ml Rx#:[id number] Magnesium Sulfate-D5w Pmx 200 1 gm In Dextrose/Water 1 100ml.bag @ 100 mls/hr IVPB Q1H NIRMAL Rx#: [id number] Sodium Ferric Gluconat- 100 Sucrose 125 mg In Sodium Chloride 0.9% 100 ml @ 100 mls/hr IVPB Q24H NIRMAL Rx#:[id number] Oral 300 Output: Urine 825 325 Other: Voiding Method Bedpan Indwelling Catheter # Bowel Movements 1 Weight 83.5 kg GENERAL: The patient is lying in bed and is in moderate to severe respiratory stress. CHEST: The heart rate is regular rate rhythm. No murmurs to auscultation. No carotid bruit bilaterally. LUNG: Clear to auscultation bilaterally no wheezing noted throughout. Tachypneic and seemed short of breath. ABDOMEN/GI: Bowel sounds present in all 4 quadrants. No tenderness to palpation throughout. NEUROLOGICAL: Higher mental function: The patient is awake, alert, oriented to self, place and time. Patient is following commands. No aphasia and no neglect. Cranial nerves: The pupils are round, equal and reactive to light and accommodation. Visual solano are right lower quarant anopsia to confrontation throughout. Extraocular movement is intact no nystagmus is noted. Facial sensation is normal to touch throughout. The facial strength is normal throughout. Hearing is normal bilaterally to hand rub. Tongue is midline and moved [id number]-jpqw without any difficulty. No dysarthria is noted. Shoulder shrug is limited because of pain bilaterally. Motor: Gait is deferred because of condition. The strength is able to lift all extremities above gravity and no drift noted. Normal tone and bulk. Cerebellum: Normal finger to nose bilaterally. Sensation: Sensation is normal to touch throughout. Reflexes (right/left):2+ throughout except ankles are 1+ bilaterally. Plantars are downgoing bilaterally. Results AST of 18 and ALT of 11. Madrigal virus PCR is not detected. - Laboratory Findings CBC and BMP: 03/27/20 17:47 03/27/20 17:47 Abnormal Lab Findings: Abnormal Labs 03/25/20 03/25/20 03/25/20 17:01 17:01 17:01 RBC Hgb 11.3 L Hct Neutrophils # APTT Chloride 108 H Carbon Dioxide 20 L BUN 42 H Creatinine 2.11 H Glucose 163 H POC Glucose (mg/dL) Magnesium 1.4 L Iron % Saturation CK-MB (CK-2) Troponin I 0.059 H* Total Protein Albumin HDL Cholesterol 03/25/20 03/25/20 03/25/20 19:11 21:10 22:17 RBC Hgb Hct Neutrophils # APTT Chloride Carbon Dioxide BUN Creatinine Glucose POC Glucose (mg/dL) 129 H Magnesium Iron % Saturation CK-MB (CK-2) Troponin I 0.063 H* 0.060 H* Total Protein Albumin HDL Cholesterol 03/26/20 03/26/20 03/26/20 02:29 02:29 02:34 RBC 3.16 L Hgb 9.8 L D Hct 29.3 L Neutrophils # APTT 81.6 H Chloride 112 H Carbon Dioxide 19 L BUN 42 H Creatinine 1.96 H Glucose 115 H POC Glucose (mg/dL) Magnesium Iron % Saturation CK-MB (CK-2) Troponin I Total Protein 5.7 L Albumin 3.0 L HDL Cholesterol 39 L 03/26/20 03/26/20 03/26/20 02:34 16:40 20:37 RBC Hgb Hct Neutrophils # APTT Chloride Carbon Dioxide BUN Creatinine Glucose POC Glucose (mg/dL) 104 H 131 H Magnesium Iron 25 L % Saturation 10.33 L CK-MB (CK-2) Troponin I Total Protein Albumin HDL Cholesterol 03/27/20 03/27/20 03/27/20 05:19 05:19 11:57 RBC Hgb Hct Neutrophils # APTT 49.4 H Chloride 115 H Carbon Dioxide 19 L BUN 40 H Creatinine 1.90 H Glucose POC Glucose (mg/dL) 100 H Magnesium 1.5 L Iron % Saturation CK-MB (CK-2) Troponin I Total Protein Albumin HDL Cholesterol 03/27/20 03/27/20 03/27/20 16:49 17:47 17:47 RBC Hgb Hct Neutrophils # 8.2 H APTT Chloride 110 H Carbon Dioxide 16 L BUN 43 H Creatinine 1.92 H Glucose 136 H POC Glucose (mg/dL) 127 H Magnesium Iron % Saturation CK-MB (CK-2) Troponin I Total Protein Albumin HDL Cholesterol 03/27/20 03/27/20 03/27/20 17:47 20:20 20:48 RBC Hgb Hct Neutrophils # APTT Chloride Carbon Dioxide BUN Creatinine Glucose POC Glucose (mg/dL) 207 H Magnesium Iron % Saturation CK-MB (CK-2) 7.8 H Troponin I 0.435 H* 0.644 H* Total Protein Albumin HDL Cholesterol Assessment and Plan Assessment: This is an 89-year-old woman with multiple medical problem that presented emergency department on 03/25/2024 anterior chest pain for the past 3 months and that's intermittent. She underwent cardiac catheterization on 03/27/2020 which revealed triple-vessel disease. Post cardiac catheterization patient the head right lower visual field defect with an NIH of a 1. Patient did not receive IV TPA is of the acute procedure. Right lower quantrant anposia likely due to stroke. Etiology: Cardioembolic likely from cardiac cath triple-vessel disease (per cardiac cath 03/27/20) Non-STEMI myocardial infarction Hypertension Diabetes Hypercholesterolemia Acute on chronic kidney insufficiency Plan: CT of the head which was reported as cerebral atrophy. No acute intracranial abnormality. No adverse changes compared to old exam. Carotid duplex on 03/27/2020 Patient was placed on aspirin 81 mg daily which is to be continued as well as Lipitor 40 mg daily for secondary stroke prophylaxis. Spoke with Primary team and they do not want her on dual antiplatetlet since will likely get cardiac procedure. MR the brain ordered urgently but she refuses. I ordered a repeat 2-D echo limited as a result of the patient symptoms. Lipid profile: Triglyceride is 88, cholesterol is 97, LDL is a 40 and HDL is 39. TSH is 1.570 which is within normal limits. CT U every 4 neuro checks Continue cardiac monitoring Consulted physical therapy and occupation therapy. Cardiology is on board and we'll defer her chest pain management to them. We'll defer the rest of the medical management to the primary team. The plan was discussed with the patient and Primary team. Thank you for the consultation. Sanju Bonilla M.D. Neuro-hospitalist Time with Patient: Greater than 30
[2020-03-28] MEDS ORDERED: FUROSEMIDE 10 MG/ML 4 ML VIAL IV STA ×2 (09:36→10:00)
[2020-03-28] MEDS: ALPRAZolam 0.25 MG TAB PO PRN ×2 (10:10→17:23)
[2020-03-28] MEDS: SODIUM BICARBONATE TAB 650 MG TAB PO SCH ×2 (10:13→21:30)
[2020-03-28] MEDS: ASPIRIN 81 MG PO SCH (10:13)
[2020-03-28] MEDS: hydrALAZINE HCL 50 MG TAB PO SCH ×2 (10:14→21:30)
[2020-03-28] MEDS: DIPYRIDAMOLE-ASPIRIN 200-25 MG 1 EACH CPMP.12HR PO SCH (10:14)
[2020-03-28] MEDS: ISOSORBIDE MONONITRATE ER 60 MG TAB.ER.24H PO SCH (10:14)
--- NOTE | 2020-03-28 10:33 | ECHOF ---
Referral Reason:limited study because of stroke MEASUREMENTS -------- HEIGHT: 165.1 cm WEIGHT: 83.5 kg BP: 133/63 RVIDd: 3.3 cm (< 3.3) IVSd: 1.4 cm (0.6 - 1.1) LVIDd: 5.3 cm (3.9 - 5.3) LVPWd: 1.4 cm (0.6 - 1.1) IVSs: 1.9 cm LVIDs: 2.9 cm LVPWs: 2.1 cm LA Diam: 4.1 cm (2.7 - 3.8) LAESV Index (A-L): 35.66 ml/m Ao Diam: 3.4 cm (2.0 - 3.7) MV EXCURSION: 13.189 mm (> 18.000) MV EF SLOPE: 54 mm/s (70 - 150) EPSS: 0.4 cm MV E Lebron: 1.34 m/s MV DecT: 144 ms MV A Lebron: 0.90 m/s MV E/A Ratio: 1.50 RAP: 5.00 mmHg RVSP: 53.65 mmHg FINDINGS -------- Sinus rhythm. This was a technically adequate study. The left ventricular size is normal. There is moderate concentric left ventricular hypertrophy. O verall left ventricular systolic function is mild-moderately impaired with, an EF between 40 - 45 %. Basal lateral LV wall motion is hypokinetic. Basal inferior LV wall motion is hypokinetic. Mi d inferior LV wall motion is hypokinetic. Apical inferior LV wall motion is hypokinetic. The right ventricle is mildly enlarged. LA is moderately dilated 34-39 ml/m2 The right atrial size is normal. Interatrial and interventricular septum intact. There is mild aortic valve sclerosis. The mitral valve leaflets are mildly thickened. Mild mitral annular calcification present. Modera dv-ht-idmazd mitral regurgitation is present. Ajwi-gm-gfuxpnac tricuspid regurgitation present. There is moderate pulmonary hypertension. The r ight ventricular systolic pressure, as measured by Doppler, is 53.65mmHg. The pulmonic valve was not well visualized. There is no pulmonic regurgitation present. The aortic root size is normal. Normal inferior vena cava with normal inspiratory collapse consistent with estimated right atrial pre ssure of 5 mmHg. There is no pericardial effusion. CONCLUSIONS -------- 1. There is moderate concentric left ventricular hypertrophy. 2. Overall left ventricular systolic function is mild-moderately impaired with, an EF between 40 - 45 %. 3. Basal lateral LV wall motion is hypokinetic. 4. Basal inferior LV wall motion is hypokinetic. 5. Mid inferior LV wall motion is hypokinetic. 6. Apical inferior LV wall motion is hypokinetic. 7. The right ventricle is mildly enlarged. 8. LA is moderately dilated 34-39 ml/m2 9. There is mild aortic valve sclerosis. 10. The mitral valve leaflets are mildly thickened. 11. Mild mitral annular calcification present. 12. Rjfumkov-qq-ovolat mitral regurgitation is present. 13. Wbpl-gs-onwvyhih tricuspid regurgitation present. 14. There is moderate pulmonary hypertension. 15. There is no pericardial effusion. [employer]SEMBLER: Mary Meier RDCS
[2020-03-28 11:35] LABS: Glucose,Whole Blood 138 mg/dL (75-99)
[2020-03-28 11:41] LABS: Calcium 9.3 mg/dL (8.4-10.2); Magnesium 1.8 mg/dL (1.6-2.3)
--- NOTE | 2020-03-28 12:51 | P.PN ---
Subjective HISTORY OF PRESENTING ILLNESS This is a pleasant 89-year-old female past medical history significant for diabetes mellitus, hypertension, dyslipidemia and chronic kidney disease. She does not follow in the office with a assistant professor of archaeology regularly. However, the son states she saw Dr. Manzanares in the office after that admission and was gi ving her options regarding medical therapy vs catheterization. They had a follow-up scheduled for later this week for a decision. The son states that her breathing has been progressively getting worse and believes she would benefit from further testing. We have been asked to see in consultation for chest pain. She presented to the hospital with one to 2 month history of exertional shortness of breath and chest discomfort. She was seen in evaluation at [facility] earlier in February where maximum medical therapy was recommended secondary to kidney disease. She also underwent a NICOLAS at that time revealing severe mitral regurgitation, mitral regurgitation is eccentrically directed with flow reversal noted in the pulmonary veins, mild tricuspid regurgitation, PFO and normal LV systolic function with ejection fraction 55- 60%. 03/28/2020 the patient underwent cardiac catheterization yesterday revealingsevere triple vessel disease including 70-80% proximal LAD, 70-80% distal LAD, 70% proximal OM branch, 80% mid circumflex, 90% mid RCA and heavily calcified diffusely diseased vessels throughout. She has been seen by CT surgery and was deemed too high risk for bypass grafting. The films were reviewed by Dr. Garner and the tentative plan was for her to undergo high risk PCI Wednesday. However, since yesterday afternoon she has been struggling to breath. We evaluated her and gave IV lasix 40 mgx2 in the afternoon. Xray at that time revealed early for pneumonia, edema and possible effusions. She had only about 500cc of urine output initially. A pereira catheter was placed for accurate output monitoring. This morning she continues to be short of breath and tachyneic. Yesterday there was some concern for a stroke because of some right lower vision changes. On further discussion with the patient she states she has been experiencing these vision changes since she was [address]-year-old. CT brain was negative for an acute infarct. Blood pressure 138/63 heart rate 86 afebrile and maintaining oxygen saturation on nasal cannula. Laboratory data reviewed, sodium 139, potassium 4.0, creatinine 2.0 and magnesium 1.8. PHYSICAL EXAMINATION CONSTITUTIONAL: No apparent distress. HEENT: Head is normocephalic. Pupils are equal, round. Sclerae anicteric. Mucous membranes of the mouth are moist. No JVD. No carotid bruit. CHEST EXAMINATION: Faint bibasilar rales, expiratory wheezes. No rhonchi. Tachyneic. No chest wall tenderness is noted on palpation or with deep breathing. HEART EXAMINATION: Regular rate and rhythm. S1, S2 heard. Systolic ejection murmur at the apex, no gallops or rub. EXTREMITIES: 2+ peripheral pulses, no lower extremity edema and no calf tenderness. ASSESSMENT Unstable angina Acute systolic heart failure Elevated troponin Acute on chronic kidney disease Diabetes mellitus Hypertension Dyslipidemia PLAN Discontinue all IV fluids. Fluid restriction of 1500 cc/day. Given lasix 80 mg now and start 60 IV BID from tonight. Give daily potassium supplementation. Document accurate intake and output along with daily weights. Repeat chest xray in the morning. Follow renal function and electrolytes daily. Discussed with primary care team the plan for possible high risk PCI if she stabilizes in the next 24-48 hours. Further recommendations to follow based on clinical course. Nurse Practitioner note has been reviewed, I agree with a documented findings and plan of care. Patient was seen and examined. Objective - Vital Signs Vital signs: Vital Signs Temp 97.8 F 03/27/20 20:00 Pulse 86 03/28/20 08:00 Resp 16 03/28/20 08:00 BP 138/63 03/28/20 08:00 Pulse Ox 96 03/28/20 08:18 Intake & Output 03/27/20 03/28/20 03/28/20 18:59 06:59 18:59 Intake Total 1078.879 180 Output Total 500 650 Balance 578.879 -650 180 Weight 83.5 kg Intake: IV 50 Intake, IV Titration 728.879 Amount Dextrose 5% in Water 1, 350 000 ml @ 75 mls/hr IV . [id number] NIRMAL with Sodium Bicarb (1 Meq/ml) 150 ml Rx#:[id number] Heparin Sod,Pork in 0.45% 78.879 NaCl 25,000 unit In 0.45 % NaCl 1 250ml.bag @ 11.6 UNITS/KG/HR 9.997 mls/hr IV .Q24H NIRMAL Rx#: [id number] Magnesium Sulfate-D5w Pmx 200 1 gm In Dextrose/Water 1 100ml.bag @ 100 mls/hr IVPB Q1H [facility] Rx#: [id number] Sodium Ferric Gluconat- 100 Sucrose 125 mg In Sodium Chloride 0.9% 100 ml @ 100 mls/hr IVPB Q24H [facility] Rx#:[id number] Oral 300 180 Output: Urine 500 650 Other: Voiding Method Bedside Commode Bedpan Bedpan Indwelling Catheter Indwelling Catheter # Voids 1 # Bowel Movements 1 1 - Labs CBC & Chem 7: 03/27/20 17:47 03/28/20 10:19 Labs: Abnormal Lab Results - Last 24 Hours (Table) 03/27/20 03/27/20 03/27/20 Range/Units 16:49 17:47 17:47 Neutrophils # 8.2 H (1.3-7.7) k/uL Chloride 110 H (98-107) mmol/L Carbon Dioxide 16 L (22-30) mmol/L BUN 43 H (7-17) mg/dL Creatinine 1.92 H (0.52-1.04) mg/dL Glucose 136 H (74-99) mg/dL POC Glucose (mg/dL) 127 H (75-99) mg/dL CK-MB (CK-2) (0.0-2.4) ng/mL Troponin I (0.000-0.034) ng/mL 03/27/20 03/27/20 03/27/20 Range/Units 17:47 20:20 20:48 Neutrophils # (1.3-7.7) k/uL Chloride (98-107) mmol/L Carbon Dioxide (22-30) mmol/L BUN (7-17) mg/dL Creatinine (0.52-1.04) mg/dL Glucose (74-99) mg/dL POC Glucose (mg/dL) 207 H (75-99) mg/dL CK-MB (CK-2) 7.8 H (0.0-2.4) ng/mL Troponin I 0.435 H* 0.644 H* (0.000-0.034) ng/mL 03/28/20 03/28/20 Range/Units 10:19 11:33 Neutrophils # (1.3-7.7) k/uL Chloride 108 H (98-107) mmol/L Carbon Dioxide 17 L (22-30) mmol/L BUN 46 H (7-17) mg/dL Creatinine 2.00 H (0.52-1.04) mg/dL Glucose 128 H (74-99) mg/dL POC Glucose (mg/dL) 138 H (75-99) mg/dL CK-MB (CK-2) (0.0-2.4) ng/mL Troponin I (0.000-0.034) ng/mL
[2020-03-28] MEDS: SODIUM FERRIC GLUCONAT-SUCROSE 125 MG in SODIUM CHLORIDE 0.9% 100 ML IVPB SCH (12:59)
--- NOTE | 2020-03-28 13:40 | P.PN ---
Subjective Progress Note Date: 03/28/20 HISTORY OF PRESENT ILLNESS 89-year-old female one of Dr. Ruslan Hayes's patient with past medical history of chronic kidney disease, hypertension, hyperlipidemia, type 2 diabetes , history of gout, history of TIA in the past with a chronic anemia who was hospitalized at [facility] between 03/03 till 03/08/2001 he for non-ST MT and ended up going for NICOLAS which showed severe mitral regurgitation and patent bingham ovale patient also was treated for diastolic congestive heart failure with IV diuretics and adjustment of her medication long talk with nephrology about the possibility of intervention including an angiogram because of the stage IV chronic kidney disease decided not to based on the high possibility of patient might ended up on hemodialysis. Medication were adjusted patient was on more Lasix started on atorvastatin hydralazine and isosorbide mononitrate 30 mg a day she felt slightly but better. [place] patient presented to [facility] emergency department this morning with worsening midsternal chest pain radiating toward the teeth and according to her has been having pain on and off for the last 3 months become much worse she is taking 3 nitroglycerin with subsided the pain completely. Finding in the emergency department still GFR of 20 troponin was 0.05 9.063 her EKG showed slight ST depression in V3 to V6 with inverted are and 3 and aVF consistent with previous inferior infarct. Patient chest x-ray shows hiatal hernia with partial intrathoracic stomach probable basilar atelectasis correlated with possible pneumonia along with pleural effusion. C ompression fracture near the thoracic lumbar junction of indeterminate age with no other finding. Patient is known to cardiology from before with the current finding decided to admit patient to the hospital continue heparin drip consult cardiology keep patient nothing by mouth for possible going for heart cath tomorrow. 03/26: Patient is seen today in the emergency center and is still waiting for room and the cardiac floor. She has been seen by cardiology with plan for heart catheterization tomorrow. Consult added for nephrology and Dr. Aggarwal has recommended maintaining Lasix 40 mg daily, start a bicarb drip prior to her catheterization. Oral sodium bicarbonate added and iron studies ordered. Renal ultrasound revealed cortical thinning and increased echogenicity correlate for chronic medical renal disease. Hypoechoic nodules in both kidneys are indeterminate but most likely on the basis of simple cyst.Patient has been afebrile, heart rate 69, blood pressure 87/54, pulse ox 94% on 2 L nasal cannula. Repeat blood work reveals hemoglobin of 9.8. CO2 19, BUN 42 and creatinine 1.96. Troponins are 0.059, 0.063, 0.060. 03/27: Patient is scheduled for heart catheterization today with Dr. Manzanares. Patient has been afebrile, heart rate 73, blood pressure 121/57, pulse ox 95% on 3 L nasal cannula. Repeat blood work reveals potassium of 3.5, BUN 40 creatinine 1.9. Patient continues to be followed by nephrology. 03/28: The patient states that she is not feeling well. Nephrology has ordered iron and she is receiving dose 2/3 today. She received 2 doses of IV Lasix y . Yesterday, patient underwent heart catheterization that revealed three-vessel disease, cardiothoracic surgery consult was in place with recommendations for PCI and mitral clip this patient is a poor surgical candidate. Following procedure, patient had a CODE STROKE was called yesterday evening due to loss of visual field in the right thigh. She was seen by nephrology and onset of symptoms are unclear and may have been present for a long period of time. Patient does not wish to undergo MRI due to claustrophobia and this will be canceled. Dr. Valencia discussed in long detail with the patient regarding her current multiple conditions and prognosis. He also contacted patient's son Rock via phone. Was recommended at that time for comfort care however cardiology would like to continue aggressive treatment and possible PCI. Hospice on hold for now. Patient has had increasing dyspnea since yesterday morning. Pulse ox is currently 96% on 3 L nasal cannula. Heart rate 73, blood pressure 133/63. COVID-19 not detected. Echocardiogram reveals EF of 40-45% with moderate concentric left ventricular hypertrophy, moderate to severe mitral regurgitation, [id number] tricuspid regurgitation, moderate pulmonary hypertension. Carotid ultrasound revealed less than 25% stenosis in the right internal carotid artery. Minimal plaque seen on the left carotid bulb. Chest x-ray from yesterday revealed early for pneumonia, edema, possible associated effusions. CAT scan of the brain revealed cerebral atrophy. No acute intracranial abnormality. No adverse change compared to old exam. REVIEW OF SYSTEMS CONSTITUTIONAL: Well-developed no acute respiratory distress. Denies fevers. Denies chills. EYES: No icterus sclerae, no conjunctivitis. EARS, NOSE, MOUTH, THROAT, and FACE: No sore throat, lymphadenopathy, carotid bruits or deformity. RESPIRATORY: Denies chest pain, reported shortness of breath CARDIOVASCULAR: Anginal chest pain worsening with exertion along with mild palpitation and PND. GASTROINTESTINAL: No Abd pain, Nausea or vomiting, no Diarrhea or constipation, No GI Bleed, no distention or masses. GENITOURINARY: Negative for Hematuria or UTI, no kidney stones. INTEGUMENT/BREAST: Negative for any muscular injury with mild osteoarthritis.. HEMATOLOGIC/LYMPHATIC: Negative for bleed or purpura. MUSCULOSKELTAL: Negative for Myalgia or arthralgia. NEURLOGICAL: No LOC, Sz or syncope, blurred vision dizziness or abnormality.. BEHAVIORAL/PSYCH: Negative. ENDOCRINE: Negative. PHYSICAL EXAMINATION General Appearance: Alert, cooperative, moderate respiratory distress with tachypnea, appears stated age. Neck HEENT: Supple, no lymphadenopathy, no thyroid enlargement, no carotid bruits. Lungs: Clear to auscultation without crackles or wheezes no rhonchi, no deformity. Chest Wall: Decrease expansion with deep inspiration no tenderness and no deformity was found on exam, no costochondral pain or discomfort. Heart: Regular rate and rhythm, S1, S2 , positive systolic murmur Back: Symmetric, no curvature, ROM normal, no CVA tenderness. Abdomen: Soft, non-tender, bowel sounds active all four quadrants, no masses, no organomegaly. Extremities: Extremities normal, atraumatic, no cyanosis or edema. Pulses: 2+ and symmetric. Skin: Skin color, texture, tugor normal, no rashes or lesions. Neurologic: Alert oriented x3 cranial nerves II through XII intact, no motor deficit, no abnormal balance or gait. ASSESSMENT AND PLAN 1. Unstable angina: With recurrent chest pain for the last few month. Status post Heart catheterization finding triple-vessel disease. Patient not candidate for CABG. Patient may go for PCI. 2. Non-ST MT: Patient was seen at [facility] and no intervention was done based on the severity of her kidney function. 3. Acute systolic heart failure. Patient is on Lasix 60 mg IV twice daily area cardiology. Monitor I&O and daily weights. 4. Acute kidney injury secondary to ATN from hypotension. 5. Chronic kidney disease stage IV. 6. Anemia of chronic kidney disease. Nephrology has ordered Ferrlecit infusio n. 7. Large hiatal hernia: Patient can benefit from stain on pantoprazole 40 mg daily for now. 8. Hyperlipidemia: Was started on atorvastatin 40 mg daily. 9. Type 2 diabetes on insulin: Continue patient on Levemir 25 units daily along with Accu-Chek with sliding scales coverage. 10. Hypertension: Blood pressure is better controlled so far on Tenormin 50 mg a day amlodipine 10 mg daily hydralazine 50 mg twice a day continue medication and titrate hydralazine if needed. 11. Previous history of TIA still on Aggrenox continue on anticoagulation. 12. Patent foramen ovale and severe mitral regurgitation 13. GI prophylaxis: On pantoprazole. 14. DVT prophylaxis: Continue patient on heparin drip. CODE STATUS: Full code. DISCHARGE PLAN home. Impression and plan of care have been directed as dictated by the signing physician. [place] Mayo nurse practitioner acting as scribe for signing physician. Objective - Vital Signs Vital signs: Vital Signs Temp 97.8 F 03/27/20 20:00 Pulse 73 03/28/20 04:00 Resp 18 03/28/20 04:00 BP 133/63 03/28/20 04:00 Pulse Ox 96 03/28/20 08:18 Intake & Output 03/27/20 03/28/20 03/28/20 18:59 06:59 18:59 Intake Total 1078.879 180 Output Total 500 650 Balance 578.879 -650 180 Weight 83.5 kg Intake: IV 50 Intake, IV Titration 728.879 Amount Dextrose 5% in Water 1, 350 000 ml @ 75 mls/hr IV . [id number] NIRMAL with Sodium Bicarb (1 Meq/ml) 150 ml Rx#:[id number] Heparin Sod,Pork in 0.45% 78.879 NaCl 25,000 unit In 0.45 % NaCl 1 250ml.bag @ 11.6 UNITS/KG/HR 9.997 mls/hr IV .Q24H NIRMAL Rx#: [id number] Magnesium Sulfate-D5w Pmx 200 1 gm In Dextrose/Water 1 100ml.bag @ 100 mls/hr IVPB Q1H NIRMAL Rx#: [id number] Sodium Ferric Gluconat- 100 Sucrose 125 mg In Sodium Chloride 0.9% 100 ml @ 100 mls/hr IVPB Q24H [facility] Rx#:[id number] Oral 300 180 Output: Urine 500 650 Other: Voiding Method Bedside Commode Bedpan Indwelling Catheter # Voids 1 # Bowel Movements 1 1 - Labs CBC & Chem 7: 03/27/20 17:47 03/28/20 10:19 Labs: Abnormal Lab Results - Last 24 Hours (Table) 03/27/20 03/27/20 03/27/20 Range/Units 11:57 16:49 17:47 Neutrophils # 8.2 H (1.3-7.7) k/uL Chloride (98-107) mmol/L Carbon Dioxide (22-30) mmol/L BUN (7-17) mg/dL Creatinine (0.52-1.04) mg/dL Glucose (74-99) mg/dL POC Glucose (mg/dL) 100 H 127 H (75-99) mg/dL CK-MB (CK-2) (0.0-2.4) ng/mL Troponin I (0.000-0.034) ng/mL 03/27/20 03/27/20 03/27/20 Range/Units 17:47 17:47 20:20 Neutrophils # (1.3-7.7) k/uL Chloride 110 H (98-107) mmol/L Carbon Dioxide 16 L (22-30) mmol/L BUN 43 H (7-17) mg/dL Creatinine 1.92 H (0.52-1.04) mg/dL Glucose 136 H (74-99) mg/dL POC Glucose (mg/dL) (75-99) mg/dL CK-MB (CK-2) 7.8 H (0.0-2.4) ng/mL Troponin I 0.435 H* 0.644 H* (0.000-0.034) ng/mL 03/27/20 Range/Units 20:48 Neutrophils # (1.3-7.7) k/uL Chloride (98-107) mmol/L Carbon Dioxide (22-30) mmol/L BUN (7-17) mg/dL Creatinine (0.52-1.04) mg/dL Glucose (74-99) mg/dL POC Glucose (mg/dL) 207 H (75-99) mg/dL CK-MB (CK-2) (0.0-2.4) ng/mL Troponin I (0.000-0.034) ng/mL
--- NOTE | 2020-03-28 13:49 | CDI ---
Documentation Clarification Form Date: 03/28/2020 01:33:02 PM From: Radha BenedictDORYS, CCDS Admit Date: 03/27/2020 01:15:00 PM Patient Name: Radha Khan Visit Number: [id number] Discharge Date: ATTENTION: The Clinical Documentation Specialists (CDI) and [facility] Coding Staff appreciate your assistance in clarifying documentation. Please respond to the clarification below the line at the bottom and electronically sign. The CDI & [facility] Coding staff will review the response and follow-up if needed. Please note: Queries are made part of the Legal Health Record. If you have any questions, please contact the author of this message via ITS. Dr. Javon Manzanares: Per the 03/28 Neurology Consult: "She underwent cardiac catheterization on 03/27/2020 which revealed triple-vessel disease. Post cardiac catheterization patient had right lower visual field defect with an NIH of a 1. Patient did not receive IV TPA. Right lower quandrant anposia likely due to stroke. Etiology: Cardioembolic likely from cardiac cath." 03/27 Code Stroke called, patient stated she had lost vision in lower portion of her right eye, NIH 1, STAT Neurology consult ordered, CT Brain, not a TPA candidate. Patients Admitting Diagnosis: NSTEMI, Multivessel CAD with Unstable Angina, Hypertension, DM II & CD IV. Post-Operative Diagnosis: Same. Procedure performed 03/27: Left Heart Catheterization and selective Coronary Arteriography. History/Risk Factors: Hypertension, DM II, CKD IV, High cholesterol. Clinical Indicators: Presented to the ED on 03/25 with chest pain. Admitted to Observation status with unstable angina pectoris. 03/25 LAB: Troponin 0.063^^, 0.060^^ 03/25 EKG: nsr R 79 03/25 CXR: no acute abnormality. 03/27 CT Brain: Cerebral atrophy, no acute abnormality. 03/26 Nephrology Consult: JARET secondary to ATN secondary to hypotension and CKD, Metabolic acidosis. 03/26 Cardiology Consult: Unstable Angina, Elevated troponin & not consistent with ACS. Advised Heart Catheterization. 03/27 Cardiothoracic Surgery Consult: Symptomatic multiple vessel CAD, NSTEMI, Severe MVR & patent foramen ovale. Recommended PCI & possible mitral clipping. Treatment 03/25: po ASA, Nitropastee, IV fluid 500 mls @ 999 mls/hr, IV Heparin drip, Nitro sl, 03/26: Nitropaste, po ASA, IV Dextrose/Water w/NaBicarb, 03/27: IV Dextrose/Water w/NaBicarb, IV Versed, IV Lasix, IV MagSulfate, IV Ferric Na Gluconate, po ASA 03/28: IV Lasix, po ASA, po KDur In order to accurately reflect this patients severity of illness, please clarify if the documented stroke: Has been ruled out Is a complication of the surgical procedure Is an expected outcome of the surgical procedure Is related to co-morbid condition(s) of: Other, please specify: Unable to determine (Last Revision: May 2019) 03/28 Per LINK MACHINE OPERATOR Leanne Manzanares, added Addendum to 03/28 PN: Stroke has been ruled out. MTDD
--- NOTE | 2020-03-28 14:15 | P.PN ---
Subjective Patient is seen in follow-up for acute kidney injury on chronic kidney disease. Renal function is fairly stable. Underwent cardiac catheterization March 27 which revealed triple-vessel disease. still feels short of breath. She received IV Lasix yesterday. Currently on 4 L nasal cannula. Vital signs are stable. General: The patient appeared well nourished and normally developed. HEENT: Head exam is unremarkable. Neck is without jugular venous distension. LUNGS: Breath sounds decreased. HEART: Rate and Rhythm are regular. ABDOMEN: Soft, nontender. EXTREMITITES: No edema. Objective - Vital Signs Vital signs: Vital Signs Temp 97.8 F 03/27/20 20:00 Pulse 88 03/28/20 12:00 Resp 16 03/28/20 13:49 BP 105/68 03/28/20 12:00 Pulse Ox 92 L 03/28/20 12:00 Intake & Output 03/27/20 03/28/20 03/28/20 18:59 06:59 18:59 Intake Total 1078.879 180 Output Total 500 650 Balance 578.879 -650 180 Weight 83.5 kg 83.5 kg Intake: IV 50 Intake, IV Titration 728.879 Amount Dextrose 5% in Water 1, 350 000 ml @ 75 mls/hr IV . [id number] NIRMAL with Sodium Bicarb (1 Meq/ml) 150 ml Rx#:[id number] Heparin Sod,Pork in 0.45% 78.879 NaCl 25,000 unit In 0.45 % NaCl 1 250ml.bag @ 11.6 UNITS/KG/HR 9.997 mls/hr IV .Q24H NIRMAL Rx#: [id number] Magnesium Sulfate-D5w Pmx 200 1 gm In Dextrose/Water 1 100ml.bag @ 100 mls/hr IVPB Q1H [facility] Rx#: [id number] Sodium Ferric Gluconat- 100 Sucrose 125 mg In Sodium Chloride 0.9% 100 ml @ 100 mls/hr IVPB Q24H [facility] Rx#:[id number] Oral 300 180 Output: Urine 500 650 Other: Voiding Method Bedside Commode Bedpan Bedpan Indwelling Catheter Indwelling Catheter # Voids 1 # Bowel Movements 1 1 - Labs CBC & Chem 7: 03/27/20 17:47 03/28/20 10:19 Labs: Abnormal Lab Results - Last 24 Hours (Table) 03/27/20 03/27/20 03/27/20 Range/Units 16:49 17:47 17:47 Neutrophils # 8.2 H (1.3-7.7) k/uL Chloride 110 H (98-107) mmol/L Carbon Dioxide 16 L (22-30) mmol/L BUN 43 H (7-17) mg/dL Creatinine 1.92 H (0.52-1.04) mg/dL Glucose 136 H (74-99) mg/dL POC Glucose (mg/dL) 127 H (75-99) mg/dL CK-MB (CK-2) (0.0-2.4) ng/mL Troponin I (0.000-0.034) ng/mL 03/27/20 03/27/20 03/27/20 Range/Units 17:47 20:20 20:48 Neutrophils # (1.3-7.7) k/uL Chloride (98-107) mmol/L Carbon Dioxide (22-30) mmol/L BUN (7-17) mg/dL Creatinine (0.52-1.04) mg/dL Glucose (74-99) mg/dL POC Glucose (mg/dL) 207 H (75-99) mg/dL CK-MB (CK-2) 7.8 H (0.0-2.4) ng/mL Troponin I 0.435 H* 0.644 H* (0.000-0.034) ng/mL 03/28/20 03/28/20 Range/Units 10:19 11:33 Neutrophils # (1.3-7.7) k/uL Chloride 108 H (98-107) mmol/L Carbon Dioxide 17 L (22-30) mmol/L BUN 46 H (7-17) mg/dL Creatinine 2.00 H (0.52-1.04) mg/dL Glucose 128 H (74-99) mg/dL POC Glucose (mg/dL) 138 H (75-99) mg/dL CK-MB (CK-2) (0.0-2.4) ng/mL Troponin I (0.000-0.034) ng/mL Assessment and Plan Plan: Assessment: 1. Acute kidney injury secondary to ATN secondary to hypotension versus chronic kidney disease. Unknown baseline renal function. Renal function fairly stable this admission. Creatinine 2 this morning. UA benign. No hydronephrosis noted on kidney ultrasound. 2. Chronic kidney disease. Need to establish baseline renal function. 3. Non-ST elevated myocardial infarction. Status post cardiac catheterization on March 27 which revealed triple-vessel disease. 4. Insulin-dependent diabetes mellitus. 5. Hypertension with chronic kidney disease. Controlled. 6. Metabolic acidosis secondary to chronic kidney disease. Maintained on oral bicarbonate. 7. Anemia of chronic kidney disease. Iron deficiency noted. 8. Hypomagnesemia from poor intake and diuretics. Improved posterior placement. 9. Acute systolic CHF with ejection fraction of 40-45% with moderate to severe mitral regurgitation, moderate pulmonary hypertension and mild to moderate tricuspid regurgitation. 10. Volume overload. Plan: Hold antihypertensives for systolic blood pressure less than 110. Agree with IV Lasix. IV iron 3 doses. Second dose today. Continue to monitor renal function and urine output as she received IV contrast on March 27.
[2020-03-28 16:53] LABS: Glucose,Whole Blood 136 mg/dL (75-99)
[2020-03-28 20:53] LABS: Glucose,Whole Blood 145 mg/dL (75-99)
[2020-03-28] MEDS: amLODIPine 10 MG TAB PO SCH (21:28)
[2020-03-28] MEDS: atenoloL 50 MG TAB PO SCH (21:30)
[2020-03-28] MEDS: FUROSEMIDE 10 MG/ML 10 ML VIAL IV SCH (21:30)
[2020-03-28] MEDS: ATORVASTATIN 40 MG TAB PO SCH (21:30)
[2020-03-28] MEDS: INSULIN DETEMIR (LEVEMIR) 100 UNIT/ML SYR SQ SCH (21:30)
[2020-03-29] MEDS: NITROGLYCERIN OINT 1 INCH/GM PACKET TOPICAL SCH ×4 (03:14→17:02)
[2020-03-29 06:30] LABS: Glucose,Whole Blood 83 mg/dL (75-99)
[2020-03-29 06:52] LABS: Basophils % (A) 0 %; Eosinophils # (A) 0.1 k/uL (0-0.7); Eosinophils % (A) 2 %; HCT 30.7 % (34.0-46.0); Lymphocytes # (A) 1.6 k/uL (1.0-4.8); Lymphocytes % (A) 19 %; MCH 29.4 pg (25.0-35.0); MCV 91.8 fL (80.0-100.0); Mean Platelet Volume 8.2; Monocytes # (A) 0.5 k/uL (0-1.0); Monocytes % (A) 6 %; Neutrophils % (A) 73 %; Platelet Count 261 k/uL (150-450); RBC 3.35 m/uL (3.80-5.40); RDW 14.1 % (11.5-15.5); WBC 8.3 k/uL (3.8-10.6)
[2020-03-29 06:58] LABS: HGB 9.8 gm/dL (11.4-16.0)
--- NOTE | 2020-03-29 07:07 | XR ---
EXAMINATION TYPE: XR chest 1V portable DATE OF EXAM: 03/29/2020 CLINICAL HISTORY: Difficulty breathing and chest pain progress study. TECHNIQUE: Single AP portable upright view of the chest is obtained. COMPARISON: Chest x-ray from 2 days earlier and older studies. FINDINGS: Mild cardiomegaly with atherosclerotic thoracic aorta redemonstrated. Improved interstitia l edema Central vascular congestion. Persistent small bilateral pleural effusions. Persistent right m id to basilar opacity. Osseous structures remain demineralized with underlying scoliotic curvature. IMPRESSION: Mild cardiomegaly with small bilateral pleural effusions and right mid to basilar infiltr ate and/or edema are all redemonstrated. Improved central vascular congestion and interstitial edema bilaterally noted from most recent x-ray
[2020-03-29 07:08] LABS: Albumin 3.1 g/dL (3.5-5.0); Calcium 9.3 mg/dL (8.4-10.2); Magnesium 1.9 mg/dL (1.6-2.3); Potassium 3.8 mmol/L (3.5-5.1); Total Bilirubin 0.7 mg/dL (0.2-1.3); Total Protein 5.8 g/dL (6.3-8.2)
[2020-03-29] MEDS: DIPYRIDAMOLE-ASPIRIN 200-25 MG 1 EACH CPMP.12HR PO SCH (09:08)
[2020-03-29] MEDS: ASPIRIN 81 MG PO SCH (09:08)
[2020-03-29] MEDS: PANTOPRAZOLE 40 MG TABLET PO SCH (09:08)
[2020-03-29] MEDS: ISOSORBIDE MONONITRATE ER 60 MG TAB.ER.24H PO SCH (09:08)
[2020-03-29] MEDS: ALPRAZolam 0.25 MG TAB PO PRN ×2 (09:08→21:38)
[2020-03-29] MEDS: FUROSEMIDE 10 MG/ML 10 ML VIAL IV SCH ×2 (09:09→21:36)
[2020-03-29] MEDS: SODIUM BICARBONATE TAB 650 MG TAB PO SCH ×2 (09:09→21:36)
[2020-03-29] MEDS: POTASSIUM CHLORIDE ER 10 MEQ TAB.ER.PRT PO SCH (09:09)
[2020-03-29] MEDS: hydrALAZINE HCL 50 MG TAB PO SCH ×2 (09:09→21:32)
--- NOTE | 2020-03-29 10:07 | P.PN ---
Subjective Progress Note Date: 03/29/20 The patient was seen at bedside and she feels about the same today compared to yesterday. She continues to have the visual field defect over the right lower quadrant. She continues to be short of breath and tachypneic. She refuses to get MRI pain since she stated that she is claustrophobic. She continued to refuse even with the some low sedation if provided. She has a systolic heart failure and she is receiving IV Lasix. Patient pulse ox has been in the range of 91-92 and the patient is on 5 L nasal cannula. Currently she is on BIPAP. Objective - Vital Signs Vital signs: Vital Signs Temp 98 F 03/29/20 08:00 Pulse 80 03/29/20 08:00 Resp 16 03/29/20 08:00 BP 117/73 03/29/20 08:00 Pulse Ox 91 L 03/29/20 08:00 Intake & Output 03/28/20 03/29/20 03/29/20 18:59 06:59 18:59 Intake Total 180 Output Total 300 Balance -120 Weight 83.5 kg Intake: Oral 180 Output: Urine 300 Other: Voiding Method Bedpan Bedpan Indwelling Catheter Indwelling Catheter - Exam GENERAL: The patient is lying in bed and is in mild respiratory stress. Resp: Mildly tachypenic and on BIPAP machine. NEUROLOGICAL: Higher mental function: The patient is awake, alert, oriented to self, place and time. Patient is following commands. No aphasia and no neglect. Cranial nerves: The pupils are round, equal and reactive to light and accommod ation. Visual solano are right lower quarant anopsia to confrontation throughout. Extraocular movement is intact no nystagmus is noted. Facial sensation is normal to touch throughout. The facial strength is normal throughout. Hearing is normal bilaterally to hand rub. Tongue is midline and moved [id number] without any difficulty. No dysarthria is noted. Shoulder shrug is limited because of pain bilaterally. Motor: Gait is deferred because of condition. The strength is able to lift all extremities above gravity and no drift noted. Normal tone and bulk. Cerebellum: Normal finger to nose bilaterally. Sensation: Sensation is normal to touch throughout. Reflexes (right/left):2+ throughout except ankles are 1+ bilaterally. Plantars are downgoing bilaterally. - Labs CBC & Chem 7: 03/29/20 06:38 03/29/20 06:38 Labs: Abnormal Lab Results - Last 24 Hours (Table) 03/28/20 03/28/20 03/28/20 Range/Units 10:19 11:33 16:52 RBC (3.80-5.40) m/uL Hgb (11.4-16.0) gm/dL Hct (34.0-46.0) % Chloride 108 H (98-107) mmol/L Carbon Dioxide 17 L (22-30) mmol/L BUN 46 H (7-17) mg/dL Creatinine 2.00 H (0.52-1.04) mg/dL Glucose 128 H (74-99) mg/dL POC Glucose (mg/dL) 138 H 136 H (75-99) mg/dL Total Protein (6.3-8.2) g/dL Albumin (3.5-5.0) g/dL 03/28/20 03/29/20 03/29/20 Range/Units 20:42 06:38 06:38 RBC 3.35 L (3.80-5.40) m/uL Hgb 9.8 L D (11.4-16.0) gm/dL Hct 30.7 L (34.0-46.0) % Chloride 109 H (98-107) mmol/L Carbon Dioxide 21 L (22-30) mmol/L BUN 51 H (7-17) mg/dL Creatinine 2.14 H (0.52-1.04) mg/dL Glucose (74-99) mg/dL POC Glucose (mg/dL) 145 H (75-99) mg/dL Total Protein 5.8 L (6.3-8.2) g/dL Albumin 3.1 L (3.5-5.0) g/dL Assessment and Plan Assessment: This is an 89-year-old woman with multiple medical problem that presented emergency department on 03/25/2024 anterior chest pain for the past 3 months and that's intermittent. She underwent cardiac catheterization on 03/27/2020 which revealed triple-vessel disease. Post cardiac catheterization patient the head right lower visual field defect with an NIH of a 1. Patient did not receive IV TPA is of the acute procedure. Right lower quantrant anposia likely due to stroke. Etiology: Cardioembolic likely from cardiac cath Acute respiratory lay distress due to acute systolic heart failure. Patient receiving Lasix Triple-vessel disease (per cardiac cath 03/27/20) Non-STEMI myocardial infarction Acute on chronic kidney injury Hypertension Diabetes Hypercholesterolemia Acute on chronic kidney insufficiency Plan: CT of the head which was reported as cerebral atrophy. No acute intracranial abnormality. No adverse changes compared to old exam. Carotid duplex on 03/27/2020 Patient was placed on aspirin 81 mg daily which is to be continued as well as Lipitor 40 mg daily for secondary stroke prophylaxis. Spoke with Primary team and they do not want her on dual antiplatetlet since will likely get cardiac procedure. Repeat 2-D echo limited: Overall left ventricle systolic function is mild to moderately impaired with ejection fraction 40-45%. The basilar bilateral left ventricle wall motion hypokinetic. Penicillin inferior left wall motion is hypokinetic. Mild inferior left ventricular wall motion is hypokinetic. Apical inferior left ventricle wall motion is hypokinetic. Left atrium is moderately dilated. Moderate to severe mitral regurgitation is present. Lipid profile: Triglyceride is 88, cholesterol is 97, LDL is a 40 and HDL is 39. Patient refused MRI Brain. Recommend repeating CT head once patient is stable (from respiratory stand point). TSH is 1.570 which is within normal limits. Continue neuro checks q4hour. Continue cardiac monitoring Consulted physical therapy and occupation therapy. Cardiology is on board and we'll defer her chest pain management to them. We'll defer the rest of the medical management to the primary team. The plan was discussed with the patient and her nurse. Sanju Bonilla M.D. Neuro-hospitalist Time with Patient: Less than 30
--- NOTE | 2020-03-29 11:20 | P.PN ---
Subjective Patient is seen in follow-up for acute kidney injury on chronic kidney disease. Renal function is fairly stable. Underwent cardiac catheterization March 27 which revealed triple-vessel disease. Dyspnea little better today. Oral intake just fair. Currently on 5 L nasal cannula. Urine output about 600 mL in the last 24 hours despite IV Lasix. Vital signs are stable. General: The patient appeared well nourished and normally developed. HEENT: Head exam is unremarkable. Neck is without jugular venous distension. LUNGS: Breath sounds decreased. HEART: Rate and Rhythm are regular. ABDOMEN: Soft, nontender. EXTREMITITES: No edema. Objective - Vital Signs Vital signs: Vital Signs Temp 98 F 03/29/20 08:00 Pulse 80 03/29/20 08:00 Resp 16 03/29/20 08:00 BP 117/73 03/29/20 08:00 Pulse Ox 91 L 03/29/20 08:00 Intake & Output 03/28/20 03/29/20 03/29/20 18:59 06:59 18:59 Intake Total 180 Output Total 300 Balance -120 Weight 83.5 kg Intake: Oral 180 Output: Urine 300 Other: Voiding Method Bedpan Bedpan Bedpan Indwelling Catheter Indwelling Catheter Indwelling Catheter - Labs CBC & Chem 7: 03/29/20 06:38 03/29/20 06:38 Labs: Abnormal Lab Results - Last 24 Hours (Table) 03/28/20 03/28/20 03/28/20 Range/Units 10:19 11:33 16:52 RBC (3.80-5.40) m/uL Hgb (11.4-16.0) gm/dL Hct (34.0-46.0) % Chloride 108 H (98-107) mmol/L Carbon Dioxide 17 L (22-30) mmol/L BUN 46 H (7-17) mg/dL Creatinine 2.00 H (0.52-1.04) mg/dL Glucose 128 H (74-99) mg/dL POC Glucose (mg/dL) 138 H 136 H (75-99) mg/dL Total Protein (6.3-8.2) g/dL Albumin (3.5-5.0) g/dL 03/28/20 03/29/20 03/29/20 Range/Units 20:42 06:38 06:38 RBC 3.35 L (3.80-5.40) m/uL Hgb 9.8 L D (11.4-16.0) gm/dL Hct 30.7 L (34.0-46.0) % Chloride 109 H (98-107) mmol/L Carbon Dioxide 21 L (22-30) mmol/L BUN 51 H (7-17) mg/dL Creatinine 2.14 H (0.52-1.04) mg/dL Glucose (74-99) mg/dL POC Glucose (mg/dL) 145 H (75-99) mg/dL Total Protein 5.8 L (6.3-8.2) g/dL Albumin 3.1 L (3.5-5.0) g/dL Assessment and Plan Plan: Assessment: 1. Acute kidney injury secondary to ATN secondary to hypotension versus chronic kidney disease. Unknown baseline renal function. Renal function fairly stable this admission. Creatinine 2.14 this morning. UA benign. No hydronephrosis noted on kidney ultrasound. 2. Chronic kidney disease. Need to establish baseline renal function. 3. Non-ST elevated myocardial infarction. Status post cardiac catheterization on March 27 which revealed triple-vessel disease. 4. Insulin-dependent diabetes mellitus. 5. Hypertension with chronic kidney disease. Controlled. 6. Metabolic acidosis secondary to chronic kidney disease. Maintained on oral bicarbonate. 7. Anemia of chronic kidney disease. Iron deficiency noted. Status post IV iron this admission. 8. Hypomagnesemia from poor intake and diuretics. Improved post replacement. 9. Acute systolic CHF with ejection fraction of 40-45% with moderate to severe mitral regurgitation, moderate pulmonary hypertension and mild to moderate tricuspid regurgitation. 10. Volume overload. Plan: Hold antihypertensives for systolic blood pressure less than 110. Maintain IV Lasix. Add metolazone 5 mg once daily. Add Aranesp. Continue to monitor renal function and urine output as she received IV contrast on March 27. I did discuss with the patient be potential need for renal replacement therapy this admission for worsening renal failure, low urine output and volume ove rload. Patient states she will think about it.
--- NOTE | 2020-03-29 11:44 | CONS ---
CONSULTATION DATE OF CONSULTATION: 03/27/20 I have seen, examined, and agree with the midlevel's findings. MMODL / IJN: [id number] /
[2020-03-29 11:54] LABS: Glucose,Whole Blood 104 mg/dL (75-99)
--- NOTE | 2020-03-29 11:55 | P.PN ---
Subjective Progress Note Date: 03/29/20 HISTORY OF PRESENT ILLNESS 89-year-old female one of Dr. Ruslan Hayes's patient with past medical history of chronic kidney disease, hypertension, hyperlipidemia, type 2 diabetes , history of gout, history of TIA in the past with a chronic anemia who was hospitalized at [facility] between 03/03 till 03/08/2001 he for non-ST AZ and ended up going for NICOLAS which showed severe mitral regurgitation and patent [place] patient also was treated for diastolic congestive heart failure with IV diuretics and adjustment of her medication long talk with nephrology about the possibility of intervention including an angiogram because of the stage IV chronic kidney disease decided not to based on the high possibility of patient might ended up on hemodialysis. Medication were adjusted patient was on more Lasix started on atorvastatin hydralazine and isosorbide mononitrate 30 mg a day she felt slightly but better. [place] patient presented to [facility] emergency department this morning with worsening midsternal chest pain radiating toward the teeth and according to her has been having pain on and off for the last 3 months become much worse she is taking 3 nitroglycerin with subsided the pain completely. Finding in the emergency department still GFR of 20 troponin was 0.05 9.063 her EKG showed slight ST depression in V3 to V6 with inverted are and 3 and aVF consistent with previous inferior infarct. Patient chest x-ray shows hiatal hernia with partial intrathoracic stomach probable basilar atelectasis correlated with possible pneumonia along with pleural effusion. C ompression fracture near the thoracic lumbar junction of indeterminate age with no other finding. Patient is known to cardiology from before with the current finding decided to admit patient to the hospital continue heparin drip consult cardiology keep patient nothing by mouth for possible going for heart cath tomorrow. 03/26: Patient is seen today in the emergency center and is still waiting for room and the cardiac floor. She has been seen by cardiology with plan for heart catheterization tomorrow. Consult added for nephrology and Dr. Aggarwal has recommended maintaining Lasix 40 mg daily, start a bicarb drip prior to her catheterization. Oral sodium bicarbonate added and iron studies ordered. Renal ultrasound revealed cortical thinning and increased echogenicity correlate for chronic medical renal disease. Hypoechoic nodules in both kidneys are indeterminate but most likely on the basis of simple cyst.Patient has been afebrile, heart rate 69, blood pressure 87/54, pulse ox 94% on 2 L nasal cannula. Repeat blood work reveals hemoglobin of 9.8. CO2 19, BUN 42 and creatinine 1.96. Troponins are 0.059, 0.063, 0.060. 03/27: Patient is scheduled for heart catheterization today with Dr. Manzanares. Patient has been afebrile, heart rate 73, blood pressure 121/57, pulse ox 95% on 3 L nasal cannula. Repeat blood work reveals potassium of 3.5, BUN 40 creatinine 1.9. Patient continues to be followed by nephrology. 03/28: The patient states that she is not feeling well. Nephrology has ordered iron and she is receiving dose 2/3 today. She received 2 doses of IV Lasix y . Yesterday, patient underwent heart catheterization that revealed three-vessel disease, cardiothoracic surgery consult was in place with recommendations for PCI and mitral clip this patient is a poor surgical candidate. Following procedure, patient had a CODE STROKE was called yesterday evening due to loss of visual field in the right thigh. She was seen by nephrology and onset of symptoms are unclear and may have been present for a long period of time. Patient does not wish to undergo MRI due to claustrophobia and this will be canceled. Dr. Valencia discussed in long detail with the patient regarding her current multiple conditions and prognosis. He also contacted patient's son Rock via phone. Was recommended at that time for comfort care however cardiology would like to continue aggressive treatment and possible PCI. Hospice on hold for now. Patient has had increasing dyspnea since yesterday morning. Pulse ox is currently 96% on 3 L nasal cannula. Heart rate 73, blood pressure 133/63. COVID-19 not detected. Echocardiogram reveals EF of 40-45% with moderate concentric left ventricular hypertrophy, moderate to severe mitral regurgitation, [id number] tricuspid regurgitation, moderate pulmonary hypertension. Carotid ultrasound revealed less than 25% stenosis in the right internal carotid artery. Minimal plaque seen on the left carotid bulb. Chest x-ray from yesterday revealed early for pneumonia, edema, possible associated effusions. CAT scan of the brain revealed cerebral atrophy. No acute intracranial abnormality. No adverse change compared to old exam. 03/29: Patient was placed on BiPAP last night. She is currently pulse ox 91% on 5 L nasal cannula. He has been afebrile, heart rate 80, blood pressure 117/73. property assessment monitor has been a sinus rhythm. Repeat chest x-ray reveals mild cardiomegaly with small bilateral pleural effusions and right mid to basilar infiltrate and or edema are all redemonstrated. Improve central vascular con gestion and interstitial edema bilaterally. Dr. Aggarwal recommends maintaining IV Lasix, added metolazone 5 mg daily, Aranesp. Repeat lab work reveals WBC 8.3, hemoglobin 9.8. BUN 51 and creatinine 2.14. Cardiology is planning on PCI on Wednesday. REVIEW OF SYSTEMS CONSTITUTIONAL: Well-developed mild respiratory distress. Denies fevers. Denies chills. EYES: No icterus sclerae, no conjunctivitis. EARS, NOSE, MOUTH, THROAT, and FACE: No sore throat, lymphadenopathy, carotid bruits or deformity. RESPIRATORY: Denies chest pain, reported shortness of breath CARDIOVASCULAR: Anginal chest pain worsening with exertion along with mild palpitation and PND. GASTROINTESTINAL: No Abd pain, Nausea or vomiting, no Diarrhea or constipation, No GI Bleed, no distention or masses. GENITOURINARY: Negative for Hematuria or UTI, no kidney stones. INTEGUMENT/BREAST: Negative for any muscular injury with mild osteoarthritis.. HEMATOLOGIC/LYMPHATIC: Negative for bleed or purpura. MUSCULOSKELTAL: Negative for Myalgia or arthralgia. NEURLOGICAL: No LOC, Sz or syncope, blurred vision dizziness or abnormality.. BEHAVIORAL/PSYCH: Negative. ENDOCRINE: Negative. PHYSICAL EXAMINATION General Appearance: Alert, cooperative, mild respiratory distress with accessory muscle usage, appears stated age. Neck HEENT: Supple, no lymphadenopathy, no thyroid enlargement, no carotid bruits. Lungs: Diminished in the bases, no deformity. Chest Wall: Decrease expansion with deep inspiration no tenderness and no deformity was found on exam, no costochondral pain or discomfort. Heart: Regular rate and rhythm, S1, S2 , positive systolic murmur Back: Symmetric, no curvature, ROM normal, no CVA tenderness. Abdomen: Soft, non-tender, bowel sounds active all four quadrants, no masses, no organomegaly. Extremities: Extremities normal, atraumatic, no cyanosis or edema. Pulses: 2+ and symmetric. Skin: Skin color, texture, tugor normal, no rashes or lesions. Neurologic: Alert oriented x3 cranial nerves II through XII intact, no motor deficit, no abnormal balance or gait. ASSESSMENT AND PLAN 1. Unstable angina: With recurrent chest pain for the last few month. Status post Heart catheterization finding triple-vessel disease. Patient not candidate for CABG. Patient may go for PCI on Wednesday. 2. Non-ST AZ: Patient was seen at [facility] and no intervention was done based on the severity of her kidney function. 3. Acute systolic heart failure. Patient is on Lasix 60 mg IV twice daily. Cardiology consult.. Monitor I&O and daily weights. 4. Acute hypoxic respiratory failure requiring BiPAP and increased oxygen needs. Patient is currently on nasal cannula 5 L. 5. Acute kidney injury secondary to ATN from hypotension. 6. Chronic kidney disease stage IV. 7. Anemia of chronic kidney disease. Nephrology has ordered Ferrlecit infusion. Aranesp ordered every 7 days. 8. Large hiatal hernia: Continue pantoprazole 40 mg daily for now. 9. Hyperlipidemia: Was started on atorvastatin 40 mg daily. 10. Type 2 diabetes on insulin: Continue patient on Levemir 25 units daily along with Accu-Chek with sliding scales coverage. 11. Hypertension: Blood pressure is better controlled so far on Tenormin 50 mg a day amlodipine 10 mg daily hydralazine 50 mg twice a day continue medication and titrate hydralazine if needed. 12. Previous history of TIA still on Aggrenox continue on anticoagulation. 13. Patent foramen ovale and severe mitral regurgitation 14. Visual field deficit, chronic. It appears that acute CVA ruled out. 15. GI prophylaxis: On pantoprazole. 16. DVT prophylaxis: Heparin subcu. CODE STATUS: Full code. DISCHARGE PLAN home. Impression and plan of care have been directed as dictated by the signing physician. [place] Mayo nurse practitioner acting as scribe for signing physician. Objective - Vital Signs Vital signs: Vital Signs Temp 98 F 03/29/20 00:00 Pulse 77 03/29/20 04:00 Resp 18 03/29/20 04:00 BP 133/82 03/29/20 04:00 Pulse Ox 92 L 03/29/20 04:00 Intake & Output 03/28/20 03/29/20 03/29/20 18:59 06:59 18:59 Intake Total 180 Output Total 300 Balance -120 Weight 83.5 kg Intake: Oral 180 Output: Urine 300 Other: Voiding Method Bedpan Bedpan Indwelling Catheter Indwelling Catheter - Labs CBC & Chem 7: 03/29/20 06:38 03/29/20 06:38 Labs: Abnormal Lab Results - Last 24 Hours (Table) 03/28/20 03/28/20 03/28/20 Range/Units 10:19 11:33 16:52 RBC (3.80-5.40) m/uL Hgb (11.4-16.0) gm/dL Hct (34.0-46.0) % Chloride 108 H (98-107) mmol/L Carbon Dioxide 17 L (22-30) mmol/L BUN 46 H (7-17) mg/dL Creatinine 2.00 H (0.52-1.04) mg/dL Glucose 128 H (74-99) mg/dL POC Glucose (mg/dL) 138 H 136 H (75-99) mg/dL Total Protein (6.3-8.2) g/dL Albumin (3.5-5.0) g/dL 03/28/20 03/29/20 03/29/20 Range/Units 20:42 06:38 06:38 RBC 3.35 L (3.80-5.40) m/uL Hgb 9.8 L D (11.4-16.0) gm/dL Hct 30.7 L (34.0-46.0) % Chloride 109 H (98-107) mmol/L Carbon Dioxide 21 L (22-30) mmol/L BUN 51 H (7-17) mg/dL Creatinine 2.14 H (0.52-1.04) mg/dL Glucose (74-99) mg/dL POC Glucose (mg/dL) 145 H (75-99) mg/dL Total Protein 5.8 L (6.3-8.2) g/dL Albumin 3.1 L (3.5-5.0) g/dL
[2020-03-29] MEDS ORDERED: DARBEPOETIN ALFA 40 MCG/0.4 ML SYRINGE SQ SCH (12:00)
[2020-03-29] MEDS: ACETAMINOPHEN TAB 500 MG TAB PO PRN ×2 (12:26→17:02)
[2020-03-29] MEDS: metOLazone 5 MG TAB PO SCH (12:26)
--- NOTE | 2020-03-29 13:09 | P.PN ---
Subjective HISTORY OF PRESENTING ILLNESS This is a pleasant 89-year-old female past medical history significant for diabetes mellitus, hypertension, dyslipidemia and chronic kidney disease. 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 However, the son states she saw Dr. Manzanares in the office after that admission and was gi ving her options regarding medical therapy vs catheterization. They had a follow-up scheduled for later this week for a decision. The son states that her breathing has been progressively getting worse and believes she would benefit from further testing. We have been asked to see in consultation for chest pain. She presented to the hospital with one to 2 month history of exertional shortness of breath and chest discomfort. She was seen in evaluation at [facility] earlier in February where maximum medical therapy was recommended secondary to kidney disease. She also underwent a NICOLAS at that time revealing severe mitral regurgitation, mitral regurgitation is eccentrically directed with flow reversal noted in the pulmonary veins, mild tricuspid regurgitation, PFO and normal LV systolic function with ejection fraction 55- 60%. 03/29/2020 Patient was seen and examined sitting up in bed. She continues to be mildly tachypneic however she feels like she is improving from yesterday. Urine output 1150 mL to the previous 24 hours. Weight is down 3 kg since admission. Laboratory data reviewed, WBC 8.3, hemoglobin 9.8, platelets 261, sodium 138, potassium 3.8, creatinine 2.14 and magnesium 1.9. Blood pressure 117/73 heart rate 88 afebrile maintaining oxygen saturation on nasal cannula. She did require BiPAP last night. Currently maintained on Lasix IV 60 mg twice a day, amlodipine 10 mg daily, aspirin 81 mg daily, atenolol 50 mg at bedtime, atorvastatin 40 mg at bedtime, hydralazine 50 mg twice a day and Imdur 60 mg daily. Repeat chest x-ray from this morning reveals small bilateral pleural effusions, right mid to basilar infiltrate and edema free demonstrated with mild improvement and central vascular congestion. PHYSICAL EXAMINATION CONSTITUTIONAL: No apparent distress. HEENT: Head is normocephalic. Pupils are equal, round. Sclerae anicteric. Mucous membranes of the mouth are moist. No JVD. No carotid bruit. CHEST EXAMINATION: Faint bibasilar rales. No wheezes or rhonchi. Tachyneic. No chest wall tenderness is noted on palpation or with deep breathing. HEART EXAMINATION: Regular rate and rhythm. S1, S2 heard. Systolic ejection murmur at the apex, no gallops or rub. EXTREMITIES: 2+ peripheral pulses, no lower extremity edema and no calf tender ness. ASSESSMENT Unstable angina Acute systolic heart failure Elevated troponin Acute on chronic kidney disease Diabetes mellitus Hypertension Dyslipidemia PLAN Continue to diurese. Nephrology has also added Zaroxolyn. Repeat renal function and electrolytes in the morning. If she continues to improve we will plan for PCI with Dr. Garner on Wednesday. Further recommendations to follow based upon clinical course. Nurse Practitioner note has been reviewed, I agree with a documented findings and plan of care. Patient was seen and examined. Objective - Vital Signs Vital signs: Vital Signs Temp 98 F 03/29/20 08:00 Pulse 80 03/29/20 08:00 Resp 16 03/29/20 08:00 BP 117/73 03/29/20 08:00 Pulse Ox 91 L 03/29/20 08:00 Intake & Output 03/28/20 03/29/20 03/29/20 18:59 06:59 18:59 Intake Total 180 Output Total 300 Balance -120 Weight 83.5 kg Intake: Oral 180 Output: Urine 300 Other: Voiding Method Bedpan Bedpan Bedpan Indwelling Catheter Indwelling Catheter Indwelling Catheter - Labs CBC & Chem 7: 03/29/20 06:38 03/29/20 06:38 Labs: Abnormal Lab Results - Last 24 Hours (Table) 03/28/20 03/28/20 03/28/20 Range/Units 10:19 11:33 16:52 RBC (3.80-5.40) m/uL Hgb (11.4-16.0) gm/dL Hct (34.0-46.0) % Chloride 108 H (98-107) mmol/L Carbon Dioxide 17 L (22-30) mmol/L BUN 46 H (7-17) mg/dL Creatinine 2.00 H (0.52-1.04) mg/dL Glucose 128 H (74-99) mg/dL POC Glucose (mg/dL) 138 H 136 H (75-99) mg/dL Total Protein (6.3-8.2) g/dL Albumin (3.5-5.0) g/dL 03/28/20 03/29/2020 Range/Units 20:42 06:38 06:38 RBC 3.35 L (3.80-5.40) m/uL Hgb 9.8 L D (11.4-16.0) gm/dL Hct 30.7 L (34.0-46.0) % Chloride 109 H (98-107) mmol/L Carbon Dioxide 21 L (22-30) mmol/L BUN 51 H (7-17) mg/dL Creatinine 2.14 H (0.52-1.04) mg/dL Glucose (74-99) mg/dL POC Glucose (mg/dL) 145 H (75-99) mg/dL Total Protein 5.8 L (6.3-8.2) g/dL Albumin 3.1 L (3.5-5.0) g/dL
[2020-03-29 17:00] LABS: Glucose,Whole Blood 88 mg/dL (75-99)
[2020-03-29 21:08] LABS: Glucose,Whole Blood 148 mg/dL (75-99)
[2020-03-29] MEDS: amLODIPine 10 MG TAB PO SCH (21:32)
[2020-03-29] MEDS: HEPARIN SODIUM,PORCINE 5,000 UNIT/ML 1 ML VIAL SQ SCH (21:36)
[2020-03-29] MEDS: ATORVASTATIN 40 MG TAB PO SCH (21:36)
[2020-03-29] MEDS: atenoloL 50 MG TAB PO SCH (21:36)
[2020-03-29] MEDS: INSULIN DETEMIR (LEVEMIR) 100 UNIT/ML SYR SQ SCH (21:36)
[2020-03-30] MEDS: NITROGLYCERIN OINT 1 INCH/GM PACKET TOPICAL SCH ×5 (00:42→23:14)
[2020-03-30] MEDS: PANTOPRAZOLE 40 MG TABLET PO SCH (06:39)
[2020-03-30 06:48] LABS: Glucose,Whole Blood 83 mg/dL (75-99)
[2020-03-30] MEDS: FUROSEMIDE 10 MG/ML 10 ML VIAL IV SCH ×2 (08:41→21:09)
[2020-03-30] MEDS: HEPARIN SODIUM,PORCINE 5,000 UNIT/ML 1 ML VIAL SQ SCH ×2 (08:41→21:09)
[2020-03-30] MEDS: ASPIRIN 81 MG PO SCH (08:42)
[2020-03-30] MEDS: SODIUM BICARBONATE TAB 650 MG TAB PO SCH ×2 (08:42→21:08)
[2020-03-30] MEDS: metOLazone 5 MG TAB PO SCH (08:42)
[2020-03-30] MEDS: DIPYRIDAMOLE-ASPIRIN 200-25 MG 1 EACH CPMP.12HR PO SCH (08:42)
[2020-03-30] MEDS: ISOSORBIDE MONONITRATE ER 60 MG TAB.ER.24H PO SCH (08:42)
[2020-03-30] MEDS: ALPRAZolam 0.25 MG TAB PO PRN ×2 (08:42→21:12)
[2020-03-30] MEDS: hydrALAZINE HCL 50 MG TAB PO SCH ×2 (08:42→21:08)
[2020-03-30] MEDS: POTASSIUM CHLORIDE ER 10 MEQ TAB.ER.PRT PO SCH (08:42)
[2020-03-30 09:11] LABS: Albumin 3.1 g/dL (3.5-5.0); Calcium 9.1 mg/dL (8.4-10.2); Magnesium 1.9 mg/dL (1.6-2.3); Potassium 3.8 mmol/L (3.5-5.1); Total Bilirubin 0.6 mg/dL (0.2-1.3); Total Protein 5.8 g/dL (6.3-8.2)
--- NOTE | 2020-03-30 11:38 | P.PN ---
Subjective Progress Note Date: 03/30/20 HISTORY OF PRESENT ILLNESS 89-year-old female one of Dr. Ruslan Hayes's patient with past medical history of chronic kidney disease, hypertension, hyperlipidemia, type 2 diabetes , history of gout, history of TIA in the past with a chronic anemia who was hospitalized at [facility] between 03/03 till 03/08/2001 he for non-ST SD and ended up going for NICOLAS which showed severe mitral regurgitation and patent [place] ov[place] patient also was treated for diastolic congestive heart failure with IV diuretics and adjustment of her medication long talk with nephrology about the possibility of intervention including an angiogram because of the stage IV chronic kidney disease decided not to based on the high possibility of patient might ended up on hemodialysis. Medication were adjusted patient was on more Lasix started on atorvastatin hydralazine and isosorbide mononitrate 30 mg a day she felt slightly but better. Ada patient presented to [facility] emergency department this morning with worsening midsternal chest pain radiating toward the teeth and according to her has been having pain on and off for the last 3 months become much worse she is taking 3 nitroglycerin with subsided the pain completely. Finding in the emergency department still GFR of 20 troponin was 0.05 9.063 her EKG showed slight ST depression in V3 to V6 with inverted are and 3 and aVF consistent with previous inferior infarct. Patient chest x-ray shows hiatal hernia with partial intrathoracic stomach probable basilar atelectasis correlated with possible pneumonia along with pleural effusion. C ompression fracture near the thoracic lumbar junction of indeterminate age with no other finding. Patient is known to cardiology from before with the current finding decided to admit patient to the hospital continue heparin drip consult cardiology keep patient nothing by mouth for possible going for heart cath tomorrow. 03/26: Patient is seen today in the emergency center and is still waiting for room and the cardiac floor. She has been seen by cardiology with plan for heart catheterization tomorrow. Consult added for nephrology and Dr. Aggarwal has recommended maintaining Lasix 40 mg daily, start a bicarb drip prior to her catheterization. Oral sodium bicarbonate added and iron studies ordered. Renal ultrasound revealed cortical thinning and increased echogenicity correlate for chronic medical renal disease. Hypoechoic nodules in both kidneys are indeterminate but most likely on the basis of simple cyst.Patient has been afebrile, heart rate 69, blood pressure 87/54, pulse ox 94% on 2 L nasal cannula. Repeat blood work reveals hemoglobin of 9.8. CO2 19, BUN 42 and creatinine 1.96. Troponins are 0.059, 0.063, 0.060. 03/27: Patient is scheduled for heart catheterization today with Dr. Manzanares. Patient has been afebrile, heart rate 73, blood pressure 121/57, pulse ox 95% on 3 L nasal cannula. Repeat blood work reveals potassium of 3.5, BUN 40 creatinine 1.9. Patient continues to be followed by nephrology. 03/28: The patient states that she is not feeling well. Nephrology has ordered iron and she is receiving dose 2/3 today. She received 2 doses of IV Lasix y . Yesterday, patient underwent heart catheterization that revealed three-vessel disease, cardiothoracic surgery consult was in place with recommendations for PCI and mitral clip this patient is a poor surgical candidate. Following procedure, patient had a CODE STROKE was called yesterday evening due to loss of visual field in the right thigh. She was seen by nephrology and onset of symptoms are unclear and may have been present for a long period of time. Patient does not wish to undergo MRI due to claustrophobia and this will be canceled. Dr. Valencia discussed in long detail with the patient regarding her current multiple conditions and prognosis. He also contacted patient's son Rock via phone. Was recommended at that time for comfort care however cardiology would like to continue aggressive treatment and possible PCI. Hospice on hold for now. Patient has had increasing dyspnea since yesterday morning. Pulse ox is currently 96% on 3 L nasal cannula. Heart rate 73, blood pressure 133/63. COVID-19 not detected. Echocardiogram reveals EF of 40-45% with moderate concentric left ventricular hypertrophy, moderate to severe mitral regurgitation, [id number] tricuspid regurgitation, moderate pulmonary hypertension. Carotid ultrasound revealed less than 25% stenosis in the right internal carotid artery. Minimal plaque seen on the left carotid bulb. Chest x-ray from yesterday revealed early for pneumonia, edema, possible associated effusions. CAT scan of the brain revealed cerebral atrophy. No acute intracranial abnormality. No adverse change compared to old exam. 03/29: Patient was placed on BiPAP last night. She is currently pulse ox 91% on 5 L nasal cannula. He has been afebrile, heart rate 80, blood pressure 117/73. programmer analyst consultant has been a sinus rhythm. Repeat chest x-ray reveals mild cardiomegaly with small bilateral pleural effusions and right mid to basilar infiltrate and or edema are all redemonstrated. Improve central vascular con gestion and interstitial edema bilaterally. Dr. Aggarwal recommends maintaining IV Lasix, added metolazone 5 mg daily, Aranesp. Repeat lab work reveals WBC 8.3, hemoglobin 9.8. BUN 51 and creatinine 2.14. Cardiology is planning on PCI on Wednesday. 03/30: Patient continues to have shortness of breath and does not feel that she is any better. She did not require BiPAP last evening. She is currently pulse oxing 93% on 5 L nasal cannula. She has been afebrile, heart rate 74, blood pressure 110/63. Repeat blood work reveals worsening renal function with BUN 58 and creatinine 2.54. Blood sugar running between 83 and 148. Liver function tests are normal. Repeat BMP in the morning. REVIEW OF SYSTEMS CONSTITUTIONAL: Well-developed mild respiratory distress. Denies fevers. Denies chills. EYES: No icterus sclerae, no conjunctivitis. EARS, NOSE, MOUTH, THROAT, and FACE: No sore throat, lymphadenopathy, carotid bruits or deformity. RESPIRATORY: reported shortness of breath CARDIOVASCULAR: Anginal chest pain worsening with exertion along with mild palpitation and PND. GASTROINTESTINAL: No Abd pain, Nausea or vomiting, no Diarrhea or constipation, No GI Bleed, no distention or masses. GENITOURINARY: Negative for Hematuria or UTI, no kidney stones. INTEGUMENT/BREAST: Negative for any muscular injury with mild osteoarthritis.. HEMATOLOGIC/LYMPHATIC: Negative for bleed or purpura. MUSCULOSKELTAL: Negative for Myalgia or arthralgia. NEURLOGICAL: No LOC, Sz or syncope, blurred vision dizziness or abnormality.. BEHAVIORAL/PSYCH: Negative. ENDOCRINE: Negative. PHYSICAL EXAMINATION General Appearance: Alert, cooperative, mild respiratory distress with accessory muscle usage, appears stated age. Neck HEENT: Supple, no lymphadenopathy, no thyroid enlargement, no carotid bruits. Lungs: Diminished in the bases, no deformity. Chest Wall: Decrease expansion with deep inspiration no tenderness and no deformity was found on exam, no costochondral pain or discomfort. Heart: Regular rate and rhythm, S1, S2 , positive systolic murmur Back: Symmetric, no curvature, ROM normal, no CVA tenderness. Abdomen: Soft, non-tender, bowel sounds active all four quadrants, no masses, no organomegaly. Extremities: Extremities normal, atraumatic, no cyanosis or edema. Pulses: 2+ and symmetric. Skin: Skin color, texture, tugor normal, no rashes or lesions. Neurologic: Alert oriented x3 cranial nerves II through XII intact, no motor deficit, no abnormal balance or gait. ASSESSMENT AND PLAN 1. Unstable angina: With recurrent chest pain for the last few month. Status post Heart catheterization finding triple-vessel disease. Patient not candidate for CABG. Patient may go for PCI on Wednesday. 2. Non-ST SD: Patient was seen at [facility] and no intervention was done based on the severity of her kidney function. 3. Acute systolic heart failure. Patient is on Lasix 60 mg IV twice daily. Cardiology consult. Monitor I&O and daily weights. 4. Acute hypoxic respiratory failure requiring BiPAP and increased oxygen needs. Patient is currently on nasal cannula 5 L. she did not require BiPAP during the night. 5. Acute kidney injury secondary to ATN from hypotension. Renal function continues to worsen. 6. Chronic kidney disease stage IV. 7. Anemia of chronic kidney disease. Nephrology has ordered Ferrlecit infusion. Aranesp ordered every 7 days. 8. Large hiatal hernia: Continue pantoprazole 40 mg daily for now. 9. Hyperlipidemia: Was started on atorvastatin 40 mg daily. 10. Type 2 diabetes on insulin: Continue patient on Levemir 25 units daily along with Accu-Chek with sliding scales coverage. 11. Hypertension: Blood pressure is better controlled so far on Tenormin 50 mg a day amlodipine 10 mg daily hydralazine 50 mg twice a day continue medication and titrate hydralazine if needed. 12. Previous history of TIA still on Aggrenox continue on anticoagulation. 13. Patent foramen ovale and severe mitral regurgitation 14. Visual field deficit, chronic. It appears that acute CVA ruled out. 15. GI prophylaxis: On pantoprazole. 16. DVT prophylaxis: Heparin subcu. CODE STATUS: Full code. DISCHARGE PLAN home. Impression and plan of care have been directed as dictated by the signing physician. India Mayo nurse practitioner acting as scribe for signing physician. Objective - Vital Signs Vital signs: Vital Signs Temp 97.6 F 03/30/20 08:00 Pulse 74 03/30/20 08:00 Resp 16 03/30/20 08:00 BP 110/63 03/30/20 08:00 Pulse Ox 93 L 03/30/20 08:00 Intake & Output 03/29/20 03/30/20 03/30/20 18:59 06:59 18:59 Intake Total 120 Output Total 350 Balance 120 -350 Intake: Oral 120 Output: Urine 350 Other: Voiding Method Bedpan Bedpan Indwelling Catheter Indwelling Catheter - Labs CBC & Chem 7: 03/29/20 06:38 03/30/20 08:34 Labs: Abnormal Lab Results - Last 24 Hours (Table) 03/29/20 03/29/20 Range/Units 11:53 20:29 POC Glucose (mg/dL) 104 H 148 H (75-99) mg/dL
--- NOTE | 2020-03-30 11:39 | P.PN ---
Subjective Patient is seen in follow-up for acute kidney injury on chronic kidney disease. Renal function worsened from diuresis. Underwent cardiac catheterization March 27 which revealed triple-vessel disease. Dyspnea little better today. Currently on 5 L nasal cannula. Oral intake just fair. Urine output 450 mL so far today. She is maintained on IV Lasix. Vital signs are stable. General: The patient appeared well nourished and normally developed. HEENT: Head exam is unremarkable. LUNGS: Breath sounds decreased. HEART: Rate and Rhythm are regular. ABDOMEN: Soft, nontender. EXTREMITITES: No edema. Objective - Vital Signs Vital signs: Vital Signs Temp 97.6 F 03/30/20 08:00 Pulse 74 03/30/20 08:00 Resp 16 03/30/20 08:00 BP 110/63 03/30/20 08:00 Pulse Ox 93 L 03/30/20 08:00 Intake & Output 03/29/20 03/30/20 03/30/20 18:59 06:59 18:59 Intake Total 120 222 Output Total 350 100 Balance 120 -350 122 Intake: Oral 120 222 Output: Urine 350 100 Other: Voiding Method Bedpan Bedpan Bedpan Indwelling Catheter Indwelling Catheter Indwelling Catheter - Labs CBC & Chem 7: 03/29/20 06:38 03/30/20 08:34 Labs: Abnormal Lab Results - Last 24 Hours (Table) 03/29/20 03/29/20 03/30/20 Range/Units 11:53 20:29 08:34 BUN 58 H (7-17) mg/dL Creatinine 2.54 H (0.52-1.04) mg/dL Glucose 115 H (74-99) mg/dL POC Glucose (mg/dL) 104 H 148 H (75-99) mg/dL Total Protein 5.8 L (6.3-8.2) g/dL Albumin 3.1 L (3.5-5.0) g/dL Assessment and Plan Plan: Assessment: 1. Acute kidney injury secondary to ATN secondary to hypotension, contrast- induced acute kidney injury as well as component of cardiorenal syndrome. Unknown baseline renal function. Renal function worse from diuresis. UA benign. No hydronephrosis noted on kidney ultrasound. 2. Chronic kidney disease. Need to establish baseline renal function. 3. Non-ST elevated myocardial infarction. Status post cardiac catheterization on March 27 which revealed triple-vessel disease. 4. Insulin-dependent diabetes mellitus. 5. Hypertension with chronic kidney disease. Controlled. 6. Metabolic acidosis secondary to chronic kidney disease. Maintained on oral bicarbonate. 7. Anemia of chronic kidney disease. Iron deficiency noted. Status post IV iron this admission. Maintained on Aranesp. 8. Hypomagnesemia from poor intake and diuretics. Improved post replacement. 9. Acute systolic CHF with ejection fraction of 40-45% with moderate to severe mitral regurgitation, moderate pulmonary hypertension and mild to moderate tricuspid regurgitation. 10. Volume overload. Plan: Hold antihypertensives for systolic blood pressure less than 110. Maintain IV Lasix and metolazone. Increase Lasix to 80 mg IV twice daily. Strict is and os. Repeat chest x-ray tomorrow. Continue to monitor renal function and urine output as she received IV contrast on March 27. Continue to assess daily for need for renal replacement therapy.
[2020-03-30 11:56] LABS: Glucose,Whole Blood 113 mg/dL (75-99)
--- NOTE | 2020-03-30 15:11 | PN ---
PROGRESS NOTE Radha is an 89-year-old lady with mitral regurgitation. She has three-vessel coronary artery disease. She is to undergo angioplasty by Dr. Asad Garner on Wednesday. This morning she appears somewhat short of breath at rest. Denies any chest pain. On exam, heart rate is 76 beats per minute. Blood pressure is 106/60, respiratory 16, O2 saturation is 94%. Chest exam reveals good air entry bilaterally without any crackles or rhonchi. Heart exam reveals first and second heart sounds and grade 3 x 6 systolic murmur at the apex. Abdomen is soft. Exam of extremities did not reveal any edema. Labs show a BUN of 58, creatinine is 2.5, hemoglobin is 9.8. ASSESSMENT: Congestive heart failure, mitral regurgitation, multivessel coronary artery disease and renal insufficiency. PLAN: I am going to cut back on the dose of Lasix as she is developing worsening renal functions. MMODL / IJN: [id number] /
[2020-03-30 16:52] LABS: Glucose,Whole Blood 136 mg/dL (75-99)
[2020-03-30 20:24] LABS: Glucose,Whole Blood 176 mg/dL (75-99)
[2020-03-30] MEDS: ATORVASTATIN 40 MG TAB PO SCH (21:08)
[2020-03-30] MEDS: amLODIPine 10 MG TAB PO SCH (21:08)
[2020-03-30] MEDS: atenoloL 50 MG TAB PO SCH (21:08)
[2020-03-30] MEDS: INSULIN DETEMIR (LEVEMIR) 100 UNIT/ML SYR SQ SCH (21:09)
[2020-03-31 06:11] LABS: Glucose,Whole Blood 121 mg/dL (75-99)
[2020-03-31] MEDS: NITROGLYCERIN OINT 1 INCH/GM PACKET TOPICAL SCH ×4 (06:31→23:11)
[2020-03-31] MEDS: PANTOPRAZOLE 40 MG TABLET PO SCH (06:31)
[2020-03-31] MEDS: hydrALAZINE HCL 50 MG TAB PO SCH ×2 (07:53→21:06)
[2020-03-31] MEDS: ISOSORBIDE MONONITRATE ER 60 MG TAB.ER.24H PO SCH (07:53)
[2020-03-31] MEDS: FUROSEMIDE 10 MG/ML 10 ML VIAL IV SCH ×2 (07:53→21:08)
[2020-03-31] MEDS: POTASSIUM CHLORIDE ER 10 MEQ TAB.ER.PRT PO SCH (07:53)
[2020-03-31] MEDS: ASPIRIN 81 MG PO SCH (07:53)
[2020-03-31] MEDS: HEPARIN SODIUM,PORCINE 5,000 UNIT/ML 1 ML VIAL SQ SCH ×2 (07:53→21:08)
[2020-03-31] MEDS: DIPYRIDAMOLE-ASPIRIN 200-25 MG 1 EACH CPMP.12HR PO SCH (07:54)
[2020-03-31] MEDS: metOLazone 5 MG TAB PO SCH (07:54)
[2020-03-31] MEDS: SODIUM BICARBONATE TAB 650 MG TAB PO SCH ×2 (07:54→21:06)
[2020-03-31 09:12] LABS: Basophils % (A) 0 %; Eosinophils # (A) 0.3 k/uL (0-0.7); Eosinophils % (A) 3 %; HCT 29.9 % (34.0-46.0); HGB 9.3 gm/dL (11.4-16.0); Hypochromasia Slight; Lymphocytes # (A) 1.8 k/uL (1.0-4.8); Lymphocytes % (A) 23 %; MCH 29.7 pg (25.0-35.0); MCHC 31.2 g/dL (31.0-37.0); Mean Platelet Volume 8.7; Monocytes # (A) 0.4 k/uL (0-1.0); Monocytes % (A) 5 %; Neutrophils # (A) 5.2 k/uL (1.3-7.7); Neutrophils % (A) 67 %; Platelet Count 254 k/uL (150-450); RBC 3.15 m/uL (3.80-5.40); RDW 14.4 % (11.5-15.5); WBC 7.7 k/uL (3.8-10.6)
--- NOTE | 2020-03-31 09:25 | XR ---
EXAMINATION TYPE: XR chest 1V DATE OF EXAM: 03/31/2020 COMPARISON: 03/29/2020 HISTORY: 89 year-old female shortness of breath TECHNIQUE: Single frontal view of the chest is obtained. FINDINGS: Heart remains borderline in size. Continued moderate right and small left effusions with right mid an d lower lung and left basilar densities. No significant change. IMPRESSION: Continued small to moderate right and small left effusions with adjacent atelectasis and/or consolida tion. Opacity extends up to the right midlung level, not significantly changed. Possible sequela of C HF.
[2020-03-31 09:26] LABS: Calcium 9.1 mg/dL (8.4-10.2); Magnesium 1.9 mg/dL (1.6-2.3); Potassium 4.1 mmol/L (3.5-5.1)
--- NOTE | 2020-03-31 10:35 | P.PN ---
Subjective Patient is seen in follow-up for acute kidney injury on chronic kidney disease. Renal function slightly worse. Underwent cardiac catheterization March 27 which revealed triple-vessel disease. No chest pain or shortness of breath at this time. Currently on 4 L nasal cannula. Oral intake just fair. Urine output remains low despite IV Lasix. Vital signs are stable. General: The patient appeared well nourished and normally developed. HEENT: Head exam is unremarkable. LUNGS: Breath sounds decreased. HEART: Rate and Rhythm are regular. ABDOMEN: Soft, nontender. EXTREMITITES: No edema. Objective - Vital Signs Vital signs: Vital Signs Temp 97.7 F 03/31/20 08:00 Pulse 67 03/31/20 08:00 Resp 20 03/31/20 08:00 BP 101/56 03/31/20 08:00 Pulse Ox 96 03/31/20 08:00 Intake & Output 03/30/20 03/31/20 03/31/20 18:59 06:59 18:59 Intake Total 684 118 Output Total 100 Balance 584 118 Weight 87.7 kg Intake: Oral 684 118 Output: Urine 100 Other: Voiding Method Bedpan Indwelling Catheter Indwelling Catheter Indwelling Catheter - Labs CBC & Chem 7: 03/31/20 08:44 03/31/20 08:44 Labs: Abnormal Lab Results - Last 24 Hours (Table) 03/30/20 03/30/20 03/30/20 Range/Units 11:52 16:46 20:16 RBC (3.80-5.40) m/uL Hgb (11.4-16.0) gm/dL Hct (34.0-46.0) % BUN (7-17) mg/dL Creatinine (0.52-1.04) mg/dL Glucose (74-99) mg/dL POC Glucose (mg/dL) 113 H 136 H 176 H (75-99) mg/dL 03/31/20 03/31/20 03/31/20 Range/Units 06:10 08:44 08:44 RBC 3.15 L (3.80-5.40) m/uL Hgb 9.3 L (11.4-16.0) gm/dL Hct 29.9 L (34.0-46.0) % BUN 69 H (7-17) mg/dL Creatinine 2.66 H (0.52-1.04) mg/dL Glucose 136 H (74-99) mg/dL POC Glucose (mg/dL) 121 H (75-99) mg/dL Assessment and Plan Plan: Assessment: 1. Acute kidney injury secondary to ATN secondary to hypotension, contrast- induced acute kidney injury as well as component of cardiorenal syndrome. Unknown baseline renal function. Renal function worse from diuresis. UA benign. No hydronephrosis noted on kidney ultrasound. 2. Chronic kidney disease. Need to establish baseline renal function. 3. Non-ST elevated myocardial infarction. Status post cardiac catheterization on March 27 which revealed triple-vessel disease. 4. Insulin-dependent diabetes mellitus. 5. Hypertension with chronic kidney disease. Controlled. 6. Metabolic acidosis secondary to chronic kidney disease. Maintained on oral bicarbonate. 7. Anemia of chronic kidney disease. Iron deficiency noted. Status post IV iron this admission. Maintained on Aranesp. 8. Hypomagnesemia from poor intake and diuretics. Improved post replacement. 9. Acute systolic CHF with ejection fraction of 40-45% with moderate to severe mitral regurgitation, moderate pulmonary hypertension and mild to moderate tricuspid regurgitation. 10. Volume overload. Plan: Hold antihypertensives for systolic blood pressure less than 110. Maintain IV Lasix and metolazone. Strict is and os. Potential cardiac catheterization tomorrow. Due to patient's age and comorbidities, she is not an ideal candidate for renal replacement therapy. Continue to assess on daily basis. Hospice has also been discussed.
--- NOTE | 2020-03-31 10:45 | P.PN ---
Subjective Progress Note Date: 03/31/20 HISTORY OF PRESENT ILLNESS 89-year-old female one of Dr. Ruslan Hayes's patient with past medical history of chronic kidney disease, hypertension, hyperlipidemia, type 2 diabetes , history of gout, history of TIA in the past with a chronic anemia who was hospitalized at [facility] between 03/03 till 03/08/2001 he for non-ST DE and ended up going for NICOLAS which showed severe mitral regurgitation and patent [place] patient also was treated for diastolic congestive heart failure with IV diuretics and adjustment of her medication long talk with nephrology about the possibility of intervention including an angiogram because of the stage IV chronic kidney disease decided not to based on the high possibility of patient might ended up on hemodialysis. Medication were adjusted patient was on more Lasix started on atorvastatin hydralazine and isosorbide mononitrate 30 mg a day she felt slightly but better. [place] patient presented to [facility] emergency department this morning with worsening midsternal chest pain radiating toward the teeth and according to her has been having pain on and off for the last 3 months become much worse she is taking 3 nitroglycerin with subsided the pain completely. Finding in the emergency department still GFR of 20 troponin was 0.05 9.063 her EKG showed slight ST depression in V3 to V6 with inverted are and 3 and aVF consistent with previous inferior infarct. Patient chest x-ray shows hiatal hernia with partial intrathoracic stomach probable basilar atelectasis correlated with possible pneumonia along with pleural effusion. C ompression fracture near the thoracic lumbar junction of indeterminate age with no other finding. Patient is known to cardiology from before with the current finding decided to admit patient to the hospital continue heparin drip consult cardiology keep patient nothing by mouth for possible going for heart cath tomorrow. 03/26: Patient is seen today in the emergency center and is still waiting for room and the cardiac floor. She has been seen by cardiology with plan for heart catheterization tomorrow. Consult added for nephrology and Dr. Aggarwal has recommended maintaining Lasix 40 mg daily, start a bicarb drip prior to her catheterization. Oral sodium bicarbonate added and iron studies ordered. Renal ultrasound revealed cortical thinning and increased echogenicity correlate for chronic medical renal disease. Hypoechoic nodules in both kidneys are indeterminate but most likely on the basis of simple cyst.Patient has been afebrile, heart rate 69, blood pressure 87/54, pulse ox 94% on 2 L nasal cannula. Repeat blood work reveals hemoglobin of 9.8. CO2 19, BUN 42 and creatinine 1.96. Troponins are 0.059, 0.063, 0.060. 03/27: Patient is scheduled for heart catheterization today with Dr. Manzanares. Patient has been afebrile, heart rate 73, blood pressure 121/57, pulse ox 95% on 3 L nasal cannula. Repeat blood work reveals potassium of 3.5, BUN 40 creatinine 1.9. Patient continues to be followed by nephrology. 03/28: The patient states that she is not feeling well. Nephrology has ordered iron and she is receiving dose 2/3 today. She received 2 doses of IV Lasix y . Yesterday, patient underwent heart catheterization that revealed three-vessel disease, cardiothoracic surgery consult was in place with recommendations for PCI and mitral clip this patient is a poor surgical candidate. Following procedure, patient had a CODE STROKE was called yesterday evening due to loss of visual field in the right thigh. She was seen by nephrology and onset of symptoms are unclear and may have been present for a long period of time. Patient does not wish to undergo MRI due to claustrophobia and this will be canceled. Dr. Valencia discussed in long detail with the patient regarding her current multiple conditions and prognosis. He also contacted patient's son Rock via phone. Was recommended at that time for comfort care however cardiology would like to continue aggressive treatment and possible PCI. Hospice on hold for now. Patient has had increasing dyspnea since yesterday morning. Pulse ox is currently 96% on 3 L nasal cannula. Heart rate 73, blood pressure 133/63. COVID-19 not detected. Echocardiogram reveals EF of 40-45% with moderate concentric left ventricular hypertrophy, moderate to severe mitral regurgitation, [id number] tricuspid regurgitation, moderate pulmonary hypertension. Carotid ultrasound revealed less than 25% stenosis in the right internal carotid artery. Minimal plaque seen on the left carotid bulb. Chest x-ray from yesterday revealed early for pneumonia, edema, possible associated effusions. CAT scan of the brain revealed cerebral atrophy. No acute intracranial abnormality. No adverse change compared to old exam. 03/29: Patient was placed on BiPAP last night. She is currently pulse ox 91% on 5 L nasal cannula. He has been afebrile, heart rate 80, blood pressure 117/73. 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 Repeat chest x-ray reveals mild cardiomegaly with small bilateral pleural effusions and right mid to basilar infiltrate and or edema are all redemonstrated. Improve central vascular con gestion and interstitial edema bilaterally. Dr. Aggarwal recommends maintaining IV Lasix, added metolazone 5 mg daily, Aranesp. Repeat lab work reveals WBC 8.3, hemoglobin 9.8. BUN 51 and creatinine 2.14. Cardiology is planning on PCI on Wednesday. 03/30: Patient continues to have shortness of breath and does not feel that she is any better. She did not require BiPAP last evening. She is currently pulse oxing 93% on 5 L nasal cannula. She has been afebrile, heart rate 74, blood pressure 110/63. Repeat blood work reveals worsening renal function with BUN 58 and creatinine 2.54. Blood sugar running between 83 and 148. Liver function tests are normal. Repeat BMP in the morning. 03/31: Patient states her breathing is better today and she feels more comfortable. Her pulse ox is currently 96% on 4 L nasal cannula and she did not require BiPAP through the night. Lung sounds are improved today. Nephrology has placed her on Lasix 80 mg IV every 12 hours. Nurse reports she did have james e lópez-colored urine this morning and CBC revealed hemoglobin of 9.3. Repeat CBC ordered for tomorrow. Electrolytes are normal and BUN 69 creatinine 2.66. But sugars are running between 121 and 176. Repeat chest x-ray reveals continued small to moderate right and small left effusions with adjacent atelectasis and/or consolidation. Obesity extends up to the right mid lung level. No significant change. Possible sequelae of CHF. Patient is scheduled for PCI tomorrow. REVIEW OF SYSTEMS CONSTITUTIONAL: Well-developed mild respiratory distress. Denies fevers. D enies chills. EYES: No icterus sclerae, no conjunctivitis. EARS, NOSE, MOUTH, THROAT, and FACE: No sore throat, lymphadenopathy, carotid bruits or deformity. RESPIRATORY: reported shortness of breath-improved CARDIOVASCULAR: Anginal chest pain worsening with exertion along with mild palpitation and PND. GASTROINTESTINAL: No Abd pain, Nausea or vomiting, no Diarrhea or constipation, No GI Bleed, no distention or masses. GENITOURINARY: Negative for Hematuria or UTI, no kidney stones. INTEGUMENT/BREAST: Negative for any muscular injury with mild osteoarthritis.. HEMATOLOGIC/LYMPHATIC: Negative for purpura. Positive hematuria MUSCULOSKELTAL: Negative for Myalgia or arthralgia. NEURLOGICAL: No LOC, Sz or syncope, blurred vision dizziness or abnormality.. BEHAVIORAL/PSYCH: Negative. ENDOCRINE: Negative. PHYSICAL EXAMINATION General Appearance: Alert, cooperative, no respiratory distress, no accessory muscle usage, appears stated age. Neck HEENT: Supple, no lymphadenopathy, no thyroid enlargement, no carotid bruits. Lungs: Diminished in the bases, no deformity. Chest Wall: Decrease expansion with deep inspiration no tenderness and no deformity was found on exam, no costochondral pain or discomfort. Heart: Regular rate and rhythm, S1, S2 , positive systolic murmur Back: Symmetric, no curvature, ROM normal, no CVA tenderness. Abdomen: Soft, non-tender, bowel sounds active all four quadrants, no masses, no organomegaly. Extremities: Extremities normal, atraumatic, no cyanosis or edema. Pulses: 2+ and symmetric. Skin: Skin color, texture, tugor normal, no rashes or lesions. Neurologic: Alert oriented x3 cranial nerves II through XII intact, no motor deficit, no abnormal balance or gait. ASSESSMENT AND PLAN 1. Unstable angina: With recurrent chest pain for the last few month. Status post Heart catheterization finding triple-vessel disease. Patient not candidate for CABG. Patient scheduled for PCI on Wednesday. 2. Non-ST DE: Patient was [facility] at [facility] and no intervention was done based on the severity of her kidney function. 3. Acute systolic heart failure. Patient is on Lasix 80 mg IV twice daily. Cardiology consult. Monitor I&O and daily weights. Nephrology on consult. 4. Acute hypoxic respiratory failure requiring BiPAP and increased oxygen needs. Patient is currently on nasal cannula 4 L. she did not require BiPAP during the night. 5. Acute kidney injury secondary to ATN from hypotension. Renal function monitored closely. 6. Chronic kidney disease stage IV. 7. Anemia of chronic kidney disease. Nephrology has ordered Ferrlecit infusion. Aranesp ordered every 7 days. 8. Large hiatal hernia: Continue pantoprazole 40 mg daily for now. 9. Hyperlipidemia: Atorvastatin 40 mg daily. 10. Type 2 diabetes on insulin: Continue patient on Levemir 25 units daily along with Accu-Chek with sliding scales coverage. 11. Hypertension: Blood pressure is better controlled so far on Tenormin 50 mg a day amlodipine 10 mg daily hydralazine 50 mg twice a day. 12. Previous history of TIA still on Aggrenox continue on anticoagulation. 13. Patent foramen ovale and severe mitral regurgitation 14. Visual field deficit, chronic. It appears that acute CVA ruled out. 15. GI prophylaxis: On pantoprazole. 16. DVT prophylaxis: Heparin subcu. CODE STATUS: Full code. DISCHARGE PLAN home. Impression and plan of care have been directed as dictated by the signing physician. [place] Mayo nurse practitioner acting as scribe for signing physician. Objective - Vital Signs Vital signs: Vital Signs Temp 97.7 F 03/31/20 08:00 Pulse 67 03/31/20 08:00 Resp 20 03/31/20 08:00 BP 101/56 03/31/20 08:00 Pulse Ox 96 03/31/20 08:00 Intake & Output 03/30/20 03/31/20 03/31/20 18:59 06:59 18:59 Intake Total 684 Output Total 100 Balance 584 Weight 87.7 kg Intake: Oral 684 Output: Urine 100 Other: Voiding Method Bedpan Indwelling Catheter Indwelling Catheter Indwelling Catheter - Labs CBC & Chem 7: 03/31/20 08:44 03/31/20 08:44 Labs: Abnormal Lab Results - Last 24 Hours (Table) 03/30/20 03/30/20 03/30/20 Range/Units 08:34 11:52 16:46 BUN 58 H (7-17) mg/dL Creatinine 2.54 H (0.52-1.04) mg/dL Glucose 115 H (74-99) mg/dL POC Glucose (mg/dL) 113 H 136 H (75-99) mg/dL Total Protein 5.8 L (6.3-8.2) g/dL Albumin 3.1 L (3.5-5.0) g/dL 03/30/20 03/31/20 Range/Units 20:16 06:10 BUN (7-17) mg/dL Creatinine (0.52-1.04) mg/dL Glucose (74-99) mg/dL POC Glucose (mg/dL) 176 H 121 H (75-99) mg/dL Total Protein (6.3-8.2) g/dL Albumin (3.5-5.0) g/dL
--- NOTE | 2020-03-31 11:51 | P.PN ---
Subjective Progress Note Date: 03/31/20 This is a pleasant 89-year-old female with mitral regurgitation. She has triple vessel coronary artery disease. She is currently scheduled to undergo angioplasty by Dr. ALIN Garner tomorrow. Overall this morning she is feeling better. She feels her breathing is better although she does have some shortness of breath with exertion. She denies any chest discomfort. No dizziness or lightheadedness and no palpitations. This x-ray this when he should continue a small to moderate right and small left pleural effusions with edges and atelectasis and/or consolidation, opacity extends up to the right mid lung level not significantly changed, possible sequela of CHF. Labs show a hemoglobin of 9.3 and worsening renal function with a BUN of 69 and a creatinine of 2.66. She was seen and evaluated by nephrology this morning who feels that she is not a candidate for dialysis. Objective - Vital Signs Vital signs: Vital Signs Temp 97.4 F L 03/31/20 11:08 Pulse 65 03/31/20 11:08 Resp 18 03/31/20 11:08 BP 112/69 03/31/20 11:08 Pulse Ox 94 L 03/31/20 11:08 Intake & Output 03/30/20 03/31/20 03/31/20 18:59 06:59 18:59 Intake Total 684 118 Output Total 100 Balance 584 118 Weight 87.7 kg Intake: Oral 684 118 Output: Urine 100 Other: Voiding Method Bedpan Indwelling Catheter Indwelling Catheter Indwelling Catheter - Exam PHYSICAL EXAMINATION: HEENT: Head is atraumatic, normocephalic. Pupils equal, round. Neck is supple. There is no elevated jugular venous pressure. HEART EXAMINATION: Heart sounds regular, S1 and S2 with a grade 3/6 systolic murmur at the apex. CHEST EXAMINATION: Lungs are clear to auscultation. No chest wall tenderness is noted on palpation or with deep breathing. ABDOMEN: Soft, nontender. Bowel sounds are heard. No organomegaly noted. EXTREMITIES: 2+ peripheral pulses with no evidence of peripheral edema and no calf tenderness noted. NEUROLOGIC patient is awake, alert and oriented x3. . - Labs CBC & Chem 7: 03/31/20 08:44 03/31/20 08:44 Labs: Abnormal Lab Results - Last 24 Hours (Table) 1203/30/20 03/30/20 Range/Units 11:52 16:46 20:16 RBC (3.80-5.40) m/uL Hgb (11.4-16.0) gm/dL Hct (34.0-46.0) % BUN (7-17) mg/dL Creatinine (0.52-1.04) mg/dL Glucose (74-99) mg/dL POC Glucose (mg/dL) 113 H 136 H 176 H (75-99) mg/dL 03/31/20 03/31/20 03/31/20 Range/Units 06:10 08:44 08:44 RBC 3.15 L (3.80-5.40) m/uL Hgb 9.3 L (11.4-16.0) gm/dL Hct 29.9 L (34.0-46.0) % BUN 69 H (7-17) mg/dL Creatinine 2.66 H (0.52-1.04) mg/dL Glucose 136 H (74-99) mg/dL POC Glucose (mg/dL) 121 H (75-99) mg/dL Assessment and Plan Assessment: #1 and stable angina, early pain-free #2 acute systolic heart failure #3 elevated troponin #4 CAD with known triple-vessel disease #5 diabetes mellitus #6 acute on chronic kidney disease, worsening #7 hypertension #8 hyperlipidemia Plan: From cardiology's perspective we will cancel PCI that was ordered for tomorrow at this time due to nephrology feeling the patient is not a good candidate for d ialysis and the potential for worsening renal failure. Will treat the patient medically at this time. We will continue to follow the patient provide further recommendations accordingly. The above dictated assessment and findings were discussed with signing physician. The impression and plan of care have been directed as dictated. Deysi Estrella, Nurse Practitioner, acting as scribe for signing physician.
[2020-03-31 11:56] LABS: Glucose,Whole Blood 122 mg/dL (75-99)
[2020-03-31] MEDS: INSULIN ASPART (NovoLOG) 100 UNIT/ML VIAL SQ SCH ×3 (12:05→21:07)
[2020-03-31 16:55] LABS: Glucose,Whole Blood 121 mg/dL (75-99)
[2020-03-31 20:28] LABS: Glucose,Whole Blood 135 mg/dL (75-99)
[2020-03-31] MEDS: ALPRAZolam 0.25 MG TAB PO PRN (21:06)
[2020-03-31] MEDS: atenoloL 50 MG TAB PO SCH (21:06)
[2020-03-31] MEDS: amLODIPine 10 MG TAB PO SCH (21:06)
[2020-03-31] MEDS: ATORVASTATIN 40 MG TAB PO SCH (21:06)
[2020-03-31] MEDS: INSULIN DETEMIR (LEVEMIR) 100 UNIT/ML SYR SQ SCH (21:07)
[2020-04-01 06:27] LABS: Glucose,Whole Blood 87 mg/dL (75-99)
[2020-04-01] MEDS: INSULIN ASPART (NovoLOG) 100 UNIT/ML VIAL SQ SCH ×3 (06:36→17:39)
[2020-04-01] MEDS: NITROGLYCERIN OINT 1 INCH/GM PACKET TOPICAL SCH (06:40)
[2020-04-01] MEDS: PANTOPRAZOLE 40 MG TABLET PO SCH (06:40)
[2020-04-01] MEDS: ASPIRIN 81 MG PO SCH (08:36)
[2020-04-01] MEDS: DIPYRIDAMOLE-ASPIRIN 200-25 MG 1 EACH CPMP.12HR PO SCH (08:37)
[2020-04-01] MEDS: metOLazone 5 MG TAB PO SCH (08:37)
[2020-04-01] MEDS: POTASSIUM CHLORIDE ER 10 MEQ TAB.ER.PRT PO SCH (08:37)
[2020-04-01] MEDS: ISOSORBIDE MONONITRATE ER 60 MG TAB.ER.24H PO SCH (08:37)
[2020-04-01] MEDS: hydrALAZINE HCL 50 MG TAB PO SCH (08:37)
[2020-04-01] MEDS: SODIUM BICARBONATE TAB 650 MG TAB PO SCH (08:37)
[2020-04-01] MEDS: HEPARIN SODIUM,PORCINE 5,000 UNIT/ML 1 ML VIAL SQ SCH (08:37)
[2020-04-01] MEDS: FUROSEMIDE 10 MG/ML 10 ML VIAL IV SCH (08:37)
[2020-04-01 08:40] LABS: Basophils % (A) 0 %; Eosinophils # (A) 0.3 k/uL (0-0.7); Eosinophils % (A) 4 %; HCT 28.8 % (34.0-46.0); HGB 9.3 gm/dL (11.4-16.0); Lymphocytes # (A) 1.8 k/uL (1.0-4.8); Lymphocytes % (A) 24 %; MCH 30.1 pg (25.0-35.0); MCHC 32.3 g/dL (31.0-37.0); MCV 93.1 fL (80.0-100.0); Mean Platelet Volume 9.9; Monocytes # (A) 0.4 k/uL (0-1.0); Monocytes % (A) 6 %; Neutrophils # (A) 4.9 k/uL (1.3-7.7); Neutrophils % (A) 65 %; Platelet Count 252 k/uL (150-450); RDW 14.4 % (11.5-15.5); WBC 7.5 k/uL (3.8-10.6)
[2020-04-01 09:01] LABS: Albumin 3.1 g/dL (3.5-5.0); Calcium 9.3 mg/dL (8.4-10.2); Magnesium 1.9 mg/dL (1.6-2.3); Total Bilirubin 0.5 mg/dL (0.2-1.3); Total Protein 5.7 g/dL (6.3-8.2)
[2020-04-01] MEDS ORDERED: atenoloL 50 MG TAB PO SCH (09:30)
--- NOTE | 2020-04-01 10:53 | P.DS ---
Providers Date of admission: 03/27/20 13:15 Expected date of discharge: 04/01/20 Attending physician: Kevin Valencia Consults: 03/25/20 18:24 Consult Physician Urgent Consulting Provider: [facility] Consult Reason/Comments: Unstable angina Do you want consulting provider notified?: Yes 03/26/20 08:27 Consult Physician Routine Consulting Provider: Jorgito Aggarwal Consult Reason/Comments: ckd, may need cath Do you want consulting provider notified?: Yes 03/27/20 11:24 Consult Physician Routine Consulting Provider: Elver Guillory Consult Reason/Comments: CAD and mitral regurgitation Do you want consulting provider notified?: Yes 03/27/20 17:58 Consult Physician Stat Consulting Provider: Sanju Bonilla Consult Reason/Comments: CODE STROKE Do you want consulting provider notified?: Yes Primary care physician: Peetz Thuysclenka [facility] Course: HISTORY OF PRESENT ILLNESS 89-year-old female one of Dr. Ruslan Hayes's patient with past medical history of chronic kidney disease, hypertension, hyperlipidemia, type 2 diabetes, history of gout, history of TIA in the past with a chronic anemia who was hospitalized at [facility] between 03/03 till 03/08/2001 he for non-ST IA and ended up going for NICOLAS which showed severe mitral regurgitation and patent [place] patient also was treated for diastolic congestive heart failure with IV diuretics and adjustment of her medication long talk with nephrology about the possibility of intervention including an angiogram because of the stage IV chronic kidney disease decided not to based on the high possibility of patient might ended up on hemodialysis. Medication were adjusted patient was on more Lasix started on atorvastatin hydralazine and isosorbide mononitrate 30 mg a day she felt slightly but better. [place] patient presented to [facility] emergency department this morning with worsening midsternal chest pain radiating toward the teeth and according to her has been having pain on and off for the last 3 months become much worse she is taking 3 nitroglycerin with subsided the pain completely. Finding in the emergency department still GFR of 20 troponin was 0.05 9.063 her EKG showed slight ST depression in V3 to V6 with inverted are and 3 and aVF consistent with previous inferior infarct. Patient chest x-ray shows hiatal hernia with partial intrathoracic stomach probable basilar atelectasis correlated with possible pneumonia along with pleural effusion. Compression fracture near the thoracic lumbar junction of indeterminate age with no other finding. Patient is known to cardiology from before with the current finding decided to admit patient to the hospital continue heparin drip consult cardiology keep patient nothing by mouth for possible going for heart cath tomorrow. 03/26: Patient is seen today in the emergency center and is still waiting for room and the cardiac floor. She has been seen by cardiology with plan for heart catheterization tomorrow. Consult added for nephrology and Dr. Aggarwal has recommended maintaining Lasix 40 mg daily, start a bicarb drip prior to her catheterization. Oral sodium bicarbonate added and iron studies ordered. Renal ultrasound revealed cortical thinning and increased echogenicity correlate for chronic medical renal disease. Hypoechoic nodules in both kidneys are indeterminate but most likely on the basis of simple cyst.Patient has been afebrile, heart rate 69, blood pressure 87/54, pulse ox 94% on 2 L nasal cannula. Repeat blood work reveals hemoglobin of 9.8. CO2 19, BUN 42 and creatinine 1.96. Troponins are 0.059, 0.063, 0.060. 03/27: Patient is scheduled for heart catheterization today with Dr. Manzanares. Patient has been afebrile, heart rate 73, blood pressure 121/57, pulse ox 95% on 3 L nasal cannula. Repeat blood work reveals potassium of 3.5, BUN 40 creatinine 1.9. Patient continues to be followed by nephrology. 03/28: The patient states that she is not feeling well. Nephrology has ordered iron and she is receiving dose 2/3 today. She received 2 doses of IV Lasix yesterday. Yesterday, patient underwent heart catheterization that revealed three-vessel disease, cardiothoracic surgery consult was in place with recommendations for PCI and mitral clip this patient is a poor surgical candidate. Following procedure, patient had a CODE STROKE was called yesterday evening due to loss of visual field in the right thigh. She was seen by nephrology and onset of symptoms are unclear and may have been present for a long period of time. Patient does not wish to undergo MRI due to claustrophobia and this will be canceled. Dr. Valencia discussed in long detail with the patient regarding her current multiple conditions and prognosis. He also contacted patient's son Rock via phone. Was recommended at that time for comfort care however cardiology would like to continue aggressive treatment and possible PCI. Hospice on hold for now. Patient has had increasing dyspnea since yesterday morning. Pulse ox is currently 96% on 3 L nasal cannula. Heart rate 73, blood pressure 133/63. COVID-19 not detected. Echocardiogram reveals EF of 40-45% with moderate concentric left ventricular hypertrophy, moderate to severe mitral regurgitation, [id number] tricuspid regurgitation, moderate pulmonary hypertension. Carotid ultrasound revealed less than 25% stenosis in the right internal carotid artery. Minimal plaque seen on the left carotid bulb. Chest x-ray from yesterday revealed early for pneumonia, edema, possible associated effusions. CAT scan of the brain revealed cerebral atrophy. No acute intracranial abnormality. No adverse change compared to old exam. 03/29: Patient was placed on BiPAP last night. She is currently pulse ox 91% on 5 L nasal cannula. He has been afebrile, heart rate 80, blood pressure 117/73. monitor worker has been a sinus rhythm. Repeat chest x-ray reveals mild cardiomegaly with small bilateral pleural effusions and right mid to basilar infiltrate and or edema are all redemonstrated. Improve central vascular congestion and interstitial edema bilaterally. Dr. Aggarwal recommends maintaining IV Lasix, added metolazone 5 mg daily, Aranesp. Repeat lab work reveals WBC 8.3, hemoglobin 9.8. BUN 51 and creatinine 2.14. Cardiology is planning on PCI on Wednesday. 03/30: Patient continues to have shortness of breath and does not feel that she is any better. She did not require BiPAP last evening. She is currently pulse oxing 93% on 5 L nasal cannula. She has been afebrile, heart rate 74, blood pressure 110/63. Repeat blood work reveals worsening renal function with BUN 58 and creatinine 2.54. Blood sugar running between 83 and 148. Liver function tests are normal. Repeat BMP in the morning. 03/31: Patient states her breathing is better today and she feels more comfortable. Her pulse ox is currently 96% on 4 L nasal cannula and she did not require BiPAP through the night. Lung sounds are improved today. Nephrology has placed her on Lasix 80 mg IV every 12 hours. Nurse reports she did have some lópez-colored urine this morning and CBC revealed hemoglobin of 9.3. Repeat CBC ordered for tomorrow. Electrolytes are normal and BUN 69 creatinine 2.66. But sugars are running between 121 and 176. Repeat chest x-ray reveals continued small to moderate right and small left effusions with adjacent atelectasis and/or consolidation. Obesity extends up to the right mid lung level. No significant change. Possible sequelae of CHF. Patient is scheduled for PCI tomorrow. 04/01: PCI scheduled for today has been counseled by cardiology as patient was deemed not a good candidate by nephrology due to kidney function and patient does not want to go on to dialysis. Patient states that she wants to go home now. This will be arranged. Discussed discharge with patient as well as her son on the phone and decision was made for hospice. Patient will be discharged home today under hospice care. ASSESSMENT AND PLAN 1. Unstable angina: With recurrent chest pain for the last few month. Status post Heart catheterization finding triple-vessel disease. 2. Non-ST IA: Patient was seen at [facility] 3. Acute systolic heart failure. 4. Acute hypoxic respiratory failure requiring BiPAP and increased oxygen needs. 5. Acute kidney injury secondary to ATN from hypotension. 6. Chronic kidney disease stage IV. 7. Anemia of chronic kidney disease. 8. Large hiatal hernia 9. Hyperlipidemia 10. Type 2 diabetes on insulin 11. Hypertension 12. Previous history of TIA 13. Patent foramen ovale and severe mitral regurgitation 14. Visual field deficit, chronic, ruled out CVA. DISCHARGE PLAN home wit [facility]. Impression and plan of care have been directed as dictated by the signing physician. [place] Mayo nurse practitioner acting as scribe for signing physician. Patient Condition at Discharge: Stable Plan - Discharge Summary New Discharge Prescriptions: New Potassium Chloride ER [K-Dur 10] 10 meq PO DAILY #30 tab.er.prt Sodium Bicarbonate Tab 650 mg PO BID tab atenoloL [Tenormin] 25 mg PO HS #30 tab metOLazone [Zaroxolyn] 5 mg PO DAILY #30 tab Continue hydrALAZINE HCL [Apresoline] 50 mg PO BID Isosorbide Mononitrate ER [Imdur] 60 mg PO DAILY Insulin Glargine,Hum.rec.anlog [Lantus Solostar] 25 units SQ HS Dipyridamole-Aspirin 200-25 mg [Aggrenox 25MG -200MG] 1 tab PO DAILY Nitroglycerin Sl Tabs [Nitrostat] 0.4 mg SUBLINGUAL DIRECTED PRN PRN Reason: Chest Pain Loratadine [Claritin] 10 mg PO DAILY PRN PRN Reason: seasonal allergies Atorvastatin [Lipitor] 40 mg PO HS amLODIPine [Norvasc] 10 mg PO HS ALPRAZolam [Xanax] 0.25 mg PO BID PRN PRN Reason: Anxiety Lansoprazole [Prevacid] 15 mg PO DAILY Changed Furosemide [Lasix] 80 mg PO BID #120 tab Atenolol [Tenormin] 50 mg PO DAILY #0 Discharge Medication List ALPRAZolam [Xanax] 0.25 mg PO BID PRN 03/25/20 [History] Atorvastatin [Lipitor] 40 mg PO HS 03/25/20 [History] Dipyridamole-Aspirin 200-25 mg [Aggrenox 25MG -200MG] 1 tab PO DAILY 03/25/20 [History] Insulin Glargine,Hum.rec.anlog [Lantus Solostar] 25 units SQ HS 03/25/20 [H istory] Isosorbide Mononitrate ER [Imdur] 60 mg PO DAILY 03/25/20 [History] Lansoprazole [Prevacid] 15 mg PO DAILY 03/25/20 [History] Loratadine [Claritin] 10 mg PO DAILY PRN 03/25/20 [History] Nitroglycerin Sl Tabs [Nitrostat] 0.4 mg SUBLINGUAL DIRECTED PRN 03/25/20 [History] amLODIPine [Norvasc] 10 mg PO HS 03/25/20 [History] hydrALAZINE HCL [Apresoline] 50 mg PO BID 03/25/20 [History] Atenolol [Tenormin] 50 mg PO DAILY #0 04/01/20 [Rx] Furosemide [Lasix] 80 mg PO BID #120 tab 04/01/20 [Rx] Potassium Chloride ER [K-Dur 10] 10 meq PO DAILY #30 tab.er.prt 04/01/20 [Rx] Sodium Bicarbonate Tab 650 mg PO BID tab 04/01/20 [Rx] atenoloL [Tenormin] 25 mg PO HS #30 tab 04/01/20 [Rx] metOLazone [Zaroxolyn] 5 mg PO DAILY #30 tab 04/01/20 [Rx] Follow up Appointment(s)/Referral(s): [facility]] - Ruslan Hayes MD [Primary Care Provider] - 1-2 days Discharge Disposition: HOME WITH HOSPICE
[2020-04-01] MEDS: ALPRAZolam 0.25 MG TAB PO PRN (11:16)
--- NOTE | 2020-04-01 11:45 | P.PN ---
Subjective HISTORY OF PRESENTING ILLNESS This is a pleasant 89-year-old female past medical history significant for diabetes mellitus, hypertension, dyslipidemia and chronic kidney disease. She is s/p cardiac catheterization revealing severe triple vessel disease. Through the weekend she has been diuresed with POSSIBLY perform cardiac catheterization today however her renal function continued to decline. She is seen and examined sitting up in bed in no acute distress. Her breathing is much improved. She has no symptoms of chest pain. She states she still feels mildly short of breath. She has no dizziness or palpitations. Blood pressure 127/58 heart rate 65 afebrile maintaining oxygen saturation on room air. Laboratory data reviewed, WBC 7.5, hemoglobin 9.3, platelets 252, sodium 140, potassium 4.0, magnesium 1.9 and creatinine 2.68. PHYSICAL EXAMINATION CONSTITUTIONAL: No apparent distress. HEENT: Head is normocephalic. Pupils are equal, round. Sclerae anicteric. Mucous membranes of the mouth are moist. No JVD. No carotid bruit. CHEST EXAMINATION:Clear to auscultation bilaterally. No wheezes, rales or rhonchi. No chest wall tenderness is noted on palpation or with deep breathing. HEART EXAMINATION: Regular rate and rhythm. S1, S2 heard. Systolic ejection murmur at the apex, no gallops or rub. EXTREMITIES: 2+ peripheral pulses, no lower extremity edema and no calf tenderness. ASSESSMENT Unstable angina Acute systolic heart failure Elevated troponin Severe triple vessel coronary artery disease not a candidate for bypass grafting given high risk factors Acute on chronic kidney disease Diabetes mellitus Hypertension Dyslipidemia PLAN Patient will be discharged home today with palliative/hospice care. Follow-up in the office with Dr. Manzanares next week. Nurse Practitioner note has been reviewed, I agree with a documented findings and plan of care. Patient was seen and examined. Objective - Vital Signs Vital signs: Vital Signs Temp 97.8 F 04/01/20 11:13 Pulse 65 04/01/20 11:13 Resp 16 04/01/20 11:13 BP 127/58 04/01/20 11:13 Pulse Ox 95 04/01/20 11:13 Intake & Output 03/31/20 04/01/20 04/01/20 18:59 06:59 18:59 Intake Total 458 120 Output Total 800 Balance 458 -800 120 Weight 86.954 kg Intake: Oral 458 120 Output: Urine 800 Other: Voiding Method Indwelling Catheter Indwelling Catheter Bedside Commode - Labs CBC & Chem 7: 04/01/20 08:25 04/01/20 08:25 Labs: Abnormal Lab Results - Last 24 Hours (Table) 03/31/20 03/31/20 03/31/20 Range/Units 11:52 16:54 20:26 RBC (3.80-5.40) m/uL Hgb (11.4-16.0) gm/dL Hct (34.0-46.0) % BUN (7-17) mg/dL Creatinine (0.52-1.04) mg/dL Glucose (74-99) mg/dL POC Glucose (mg/dL) 122 H 121 H 135 H (75-99) mg/dL Total Protein (6.3-8.2) g/dL Albumin (3.5-5.0) g/dL 04/01/20 04/01/20 Range/Units 08:25 08:25 RBC 3.10 L (3.80-5.40) m/uL Hgb 9.3 L (11.4-16.0) gm/dL Hct 28.8 L (34.0-46.0) % BUN 76 H (7-17) mg/dL Creatinine 2.68 H (0.52-1.04) mg/dL Glucose 107 H (74-99) mg/dL POC Glucose (mg/dL) (75-99) mg/dL Total Protein 5.7 L (6.3-8.2) g/dL Albumin 3.1 L (3.5-5.0) g/dL
[2020-04-01 12:15] LABS: Glucose,Whole Blood 105 mg/dL (75-99)
[2020-04-01 15:45] VITALS: BP 126/62; PULSE 63; RESP 18; TEMP 97.5
--- NOTE | 2020-04-01 15:53 | PN ---
PROGRESS NOTE Patient is seen for followup for chronic kidney disease and acute kidney injury. Patient has decided to proceed with hospice care. She denies any significant chest pains or shortness of breath. Renal function is fairly stable with creatinine staying at 2.6 for the last couple of days. PHYSICAL EXAMINATION: On examination today, blood pressure was 119/54, heart rate 63 per minute, patient is afebrile. Examination of the heart S1, S2. Examination of lungs, decreased breath sounds at bases. Abdomen is soft, nontender. Examination of the lower extremities shows no significant edema. CHIEF DISPATCHER exam grossly intact. LABS: Show sodium 140, potassium 4.0, chloride 106, BUN 76, creatinine 2.68. ASSESSMENT: 1. Chronic kidney disease NKF stage IV with an element of acute kidney injury. Renal function about the same for the last couple of days. Etiology for acute kidney injury, contrast induced nephropathy, as well as cardiorenal syndrome. 2. Non ST-elevation NE, status post cardiac cath which revealed three-vessel disease. 3. Acute systolic congestive heart failure. 4. Cardiomyopathy, ejection fraction 40% to 45% with moderate to severe mitral regurgitation, moderate pulmonary hypertension, moderate tricuspid regurgitation. 5. Anemia of chronic disease. 6. Metabolic acidosis associated with underlying renal failure, maintained on sodium bicarb. PLAN: No changes in medications at this time. The patient is going home with home hospice. MMODL / IJN: [id number] /
[2020-04-01 17:27] LABS: Glucose,Whole Blood 118 mg/dL (75-99)
[2020-04-01] MEDS ORDERED: atenoloL 25 MG TAB PO SCH (21:00)
--- NOTE | 2020-04-02 13:00 | CDI ---
Documentation Clarification Form Date: 04/02/20 From: Roxanne Shaw Phone: If you have a question about this query, please contact Ani Black, Furnace Door Tender at [phone] between 8am and 5pm. Admit Date: 03/27/20 Discharge Date: 04/01/20 Patient Name: PARISH DIEGO Visit Number: [id number] ATTENTION: The Clinical Documentation Specialists (CDI) and [facility] Coding Staff appreciate your assistance in clarifying documentation. Please respond to the clarification below the line at the bottom and electronically sign. The CDI & [facility] Coding staff will review the response and follow-up if needed. Please note: Queries are made part of the Legal Health Record. If you have any questions, please contact the author of this message via ITS. Dear Dr. Kevin Valencia, Conflicting documentation has been found in the medical record: The patient recently was at [facility] and was diagnosed with NON-ST AR. He presents to ED with angina. Per copy center specialist consult: Elevated troponin, flat and not consistent with ACS. History/Risk Factors: CAD, old AR, acute systolic CHF, ATN, HTN w CKD 4, Clinical Indicators: Troponin I-0.059, 0.063, 0.060, 0.435, 0.644 EKG: Finding in the emergency department still GFR of 20 troponin was 0.05 9.063 her EKG showed slight ST depression in V3 to V6 with inverted are and 3 and aVF consistent with previous inferior infarct. Treatment: Heart cath with medical treatment In your opinion, what is the most clinically appropriate diagnosis for this patient? New AR ruled out New non-ST AR ruled in xx Other explanation of clinical findings multiple CAD and sever MR no Acute AR Unable to determine (no explanation for clinical findings) MTDD
== END 2020-04-01 18:31 | disposition hospice, home (50) | DRG 286 ==
LOC: EC 16:29 → 3SCARD 18:24 → OBSVTOIN 03-27 13:15
PROVIDERS: ADMIT Internal Medicine Geriatric Medicine; ATTEND Internal Medicine Geriatric Medicine
PROC: 5A09457 Assistance with Respiratory Ventilation, 24-96 Consecutive Hours, Continuous Positive Airway Pressure (ICD-10-PCS; 2020-03-27)
PROC: B2111ZZ Fluoroscopy of Multiple Coronary Arteries using Low Osmolar Contrast (ICD-10-PCS; principal; 2020-03-27 10:30)
PROC: 4A023N7 Measurement of Cardiac Sampling and Pressure, Left Heart, Percutaneous Approach (ICD-10-PCS; principal; 2020-03-27 10:30)
DX: I25.110 Atherosclerotic heart disease of native coronary artery with unstable angina pectoris (principal); I50.21 Acute systolic (congestive) heart failure; J96.01 Acute respiratory failure with hypoxia; N17.0 Acute kidney failure with tubular necrosis; E87.2 Acidosis; I13.0 Hypertensive heart and chronic kidney disease with heart failure and stage 1 through stage 4 chronic kidney disease, or unspecified chronic kidney disease; M48.57XA Collapsed vertebra, not elsewhere classified, lumbosacral region, initial encounter for fracture; N18.4 Chronic kidney disease, stage 4 (severe); Q21.1 Atrial septal defect; J98.11 Atelectasis; I42.9 Cardiomyopathy, unspecified; I95.9 Hypotension, unspecified; D63.1 Anemia in chronic kidney disease; H53.461 Homonymous bilateral field defects, right side; I27.20 Pulmonary hypertension, unspecified; E11.22 Type 2 diabetes mellitus with diabetic chronic kidney disease; Z79.4 Long term (current) use of insulin; Z20.828 Contact with and (suspected) exposure to other viral communicable diseases; Z66 Do not resuscitate; I25.84 Coronary atherosclerosis due to calcified coronary lesion; Z51.5 Encounter for palliative care; E83.42 Hypomagnesemia; T50.8X5A Adverse effect of diagnostic agents, initial encounter; I65.23 Occlusion and stenosis of bilateral carotid arteries; N28.1 Cyst of kidney, acquired; D50.9 Iron deficiency anemia, unspecified; E78.5 Hyperlipidemia, unspecified; E78.00 Pure hypercholesterolemia, unspecified; I08.1 Rheumatic disorders of both mitral and tricuspid valves; J30.0 Vasomotor rhinitis; E53.8 Deficiency of other specified B group vitamins; M51.36 Other intervertebral disc degeneration, lumbar region; K44.9 Diaphragmatic hernia without obstruction or gangrene; K21.9 Gastro-esophageal reflux disease without esophagitis; F41.1 Generalized anxiety disorder; E07.9 Disorder of thyroid, unspecified; K59.09 Other constipation; F32.9 Major depressive disorder, single episode, unspecified; I25.2 Old myocardial infarction; Z79.02 Long term (current) use of antithrombotics/antiplatelets; Z79.82 Long term (current) use of aspirin; Z79.899 Other long term (current) drug therapy; Z87.39 Personal history of other diseases of the musculoskeletal system and connective tissue; Z86.73 Personal history of transient ischemic attack (TIA), and cerebral infarction without residual deficits; Z86.69 Personal history of other diseases of the nervous system and sense organs; Z86.79 Personal history of other diseases of the circulatory system; Z90.49 Acquired absence of other specified parts of digestive tract; Z87.19 Personal history of other diseases of the digestive system; Z90.710 Acquired absence of both cervix and uterus; Z87.42 Personal history of other diseases of the female genital tract; Z87.440 Personal history of urinary (tract) infections; Z90.89 Acquired absence of other organs; Z98.890 Other specified postprocedural states; Z82.49 Family history of ischemic heart disease and other diseases of the circulatory system; Z83.3 Family history of diabetes mellitus
CPT/HCPCS: 36415; 70450; 71045; 71046; 76770; 80048; 80053; 80061; 81003; 82550; 82553; 82728; 83540; 83550; 83735; 83880; 84443; 84484; 85025; 85379; 85610; 85730; 87635; 93005; 93306; 93454; 93880; 94660; 94760; 96365; 96366; 96376; 99291